=== PATIENT | female | born 1950 | race Caucasian/White ===

== ENCOUNTER 2018-06-06 07:49 | Inpatient (IN) | payer MEDICARE ==
--- NOTE | 2018-06-06 08:13 | Cat Scan Report ---
CT HEAD WITHOUT CONTRAST: HISTORY: Neurological deficits. TECHNIQUE: Sequential CT images without contrast. FINDINGS: There is moderate hypoattenuation throughout the white matter bilaterally consistent with nonspecific chronic microvascular disease. Chronic lacunar infarcts are identified in the thalami bilaterally and alvino bilaterally. An approximate 2.8 x 3.2 cm area of diminished attenuation is identified in the right cerebellar hemisphere on image 15. This also appears chronic. There is no evidence for hemorrhage, mass or large area of acute ischemia on noncontrast CT. Ventricular size is within normal limits. The basal cisterns are clear. The calvarium is intact. The paranasal sinuses and mastoid air cells are adequately aerated. IMPRESSION: Chronic findings as outlined above. No acute intracranial process is identified. These findings were discussed with Dr. Chase in the emergency department at 0804 hrs.
[2018-06-06 08:17] LABS: Basophils # (Auto) 0.1 K/mm3 (0.0-0.1); Basophils % (Auto) 0.7 % (0.0-1.8); Eosinophils # (Auto) 0.3 K/mm3 (0.0-0.4); Eosinophils % (Auto) 2.6 % (0.0-4.3); Hematocrit 40.7 % (30.3-42.9); Hemoglobin 13.3 gm/dl (10.1-14.3); Lymphocytes # (Auto) 3.4 K/mm3 (1.2-5.4); Lymphocytes % (Auto) 33.8 % (13.4-35.0); Mean Corpuscular HGB Conc 33 % (30-34); Mean Corpuscular Volume 83 fl (79-97); Monocytes # (Auto) 0.6 K/mm3 (0.0-0.8); Monocytes % (Auto) 5.7 % (0.0-7.3); Platelet Count 252 K/mm3 (140-440); Red Blood Count 4.88 M/mm3 (3.65-5.03); Red Cell Distribution Width 15.3 % (13.2-15.2)
[2018-06-06] MEDS ORDERED: BABY ASPIRIN PO ONE (08:25)
--- NOTE | 2018-06-06 08:25 | Emergency Department Report ---
ED General Adult HPI - General Stated complaint: POSS CVA Time Seen by Provider: 06/06/18 07:55 Source: patient - History of Present Illness Initial comments: Patient presents to the emergency department via EMS for chief complaint of slurred speech and right-sided weakness that started last night at 10 PM. Patient has a previous history of a stroke that left her with left-sided deficits. Patient states that yesterday morning she was able to speak normally and have full function of her right side. Patient denies chest pain, shortness of breath, or headache. -: Sudden Severity scale (0 -10): 0 Consistency: constant Improves with: none Worsens with: none Associated Symptoms: denies other symptoms Treatments Prior to Arrival: none - Related Data Home Medications Medication Instructions Recorded Confirmed Last Taken ALPRAZolam [Xanax TAB] 1 mg PO QDAY 03/18/16 04/28/16 Unknown Aspirin [Adult Low Dose Aspirin EC] 81 mg PO QDAY 03/18/16 04/28/16 Unknown AtorvaSTATin [Lipitor] 40 mg PO QDAY 03/18/16 04/28/16 Unknown Telmisartan/Amlodipine 1 each PO QDAY 03/18/16 04/28/16 Unknown [Telmisartan-Amlodipine 40-10] Trazodone HCl 50 mg PO QDAY 03/18/16 04/28/16 Unknown Trazodone HCl 100 mg PO QHS 03/18/16 04/28/16 Unknown risperiDONE [RisperiDONE] 1 mg PO QDAY 03/18/16 04/28/16 Unknown Allergies Allergy/AdvReac Type Severity Reaction Status Date / Time Penicillins Allergy Hives Verified 06/06/18 09:04 ED Review of Systems ROS: Stated complaint: POSS CVA Other details as noted in HPI Comment: All other systems reviewed and negative Constitutional: denies: chills, fever Eyes: denies: eye pain, eye discharge, vision change ENT: denies: ear pain, throat pain Respiratory: denies: cough, shortness of breath, wheezing Cardiovascular: denies: chest pain, palpitations Endocrine: no symptoms reported Gastrointestinal: denies: abdominal pain, nausea, diarrhea Genitourinary: denies: urgency, dysuria, discharge Musculoskeletal: denies: back pain, joint swelling, arthralgia Skin: denies: rash, lesions Neurological: other (slurred speech). denies: headache, weakness, paresthesias Psychiatric: denies: anxiety, depression Hematological/Lymphatic: denies: easy bleeding, easy bruising ED Past Medical Hx - Past Medical History Hx Hypertension: Yes (FOR 40+ YRS) Hx Renal Disease: Yes (STAGE 1) Hx HIV: No - Social History Smoking Status: Current Every Day Smoker - Medications Home Medications: Home Medications Medication Instructions Recorded Confirmed Last Taken Type ALPRAZolam [Xanax TAB] 1 mg PO QDAY 03/18/16 04/28/16 Unknown History Aspirin [Adult Low Dose Aspirin EC] 81 mg PO QDAY 03/18/16 04/28/16 Unknown History AtorvaSTATin [Lipitor] 40 mg PO QDAY 03/18/16 04/28/16 Unknown History Telmisartan/Amlodipine 1 each PO QDAY 03/18/16 04/28/16 Unknown History [Telmisartan-Amlodipine 40-10] Trazodone HCl 50 mg PO QDAY 03/18/16 04/28/16 Unknown History Trazodone HCl 100 mg PO QHS 03/18/16 04/28/16 Unknown History risperiDONE [RisperiDONE] 1 mg PO QDAY 03/18/16 04/28/16 Unknown History ED Physical Exam - General General appearance: alert, in no apparent distress - Head Head exam: Present: atraumatic, normocephalic - Eye Eye exam: Present: normal appearance, PERRL, EOMI - ENT ENT exam: Present: mucous membranes moist - Neck Neck exam: Present: normal inspection - Respiratory Respiratory exam: Present: normal lung sounds bilaterally. Absent: respiratory distress, wheezes, rales, rhonchi - Cardiovascular Cardiovascular Exam: Present: regular rate, normal rhythm. Absent: systolic murmur, diastolic murmur, rubs, gallop - GI/Abdominal GI/Abdominal exam: Present: soft, normal bowel sounds. Absent: distended, tenderness - Extremities Exam Extremities exam: Present: normal inspection - Back Exam Back exam: Present: normal inspection - Neurological Exam Neurological exam: Present: alert, oriented X3, CN II-XII intact, other (slurred speech, RUE 4/5 strength, prior left-sided deficit). Absent: motor sensory deficit - Psychiatric Psychiatric exam: Present: normal affect, normal mood - Skin Skin exam: Present: warm, dry, intact, normal color. Absent: rash ED Course Vital Signs 06/06/18 06/06/18 06/06/18 08:30 08:55 09:00 Temperature 98.3 F Pulse Rate 70 82 70 Respiratory 16 16 16 Rate Blood Pressure 210/111 210/111 217/92 O2 Sat by Pulse 99 100 100 Oximetry 06/06/18 09:30 Temperature Pulse Rate 70 Respiratory 15 Rate Blood Pressure 175/90 O2 Sat by Pulse 99 Oximetry ED Medical Decision Making - Lab Data Result diagrams: 06/06/18 08:04 06/06/18 08:04 Lab Results 06/06/18 06/06/18 06/06/18 Range/Units 07:56 08:04 08:04 WBC 10.2 (4.5-11.0) K/mm3 RBC 4.88 (3.65-5.03) M/mm3 Hgb 13.3 (10.1-14.3) gm/dl Hct 40.7 (30.3-42.9) % MCV 83 (79-97) fl MCH 27 L (28-32) pg MCHC 33 (30-34) % RDW 15.3 H (13.2-15.2) % Plt Count 252 (140-440) K/mm3 Lymph % (Auto) 33.8 (13.4-35.0) % [place]idan % (Auto) 5.7 (0.0-7.3) % Eos % (Auto) 2.6 (0.0-4.3) % Baso % (Auto) 0.7 (0.0-1.8) % Lymph # 3.4 (1.2-5.4) K/mm3 Sheridan # 0.6 (0.0-0.8) K/mm3 Eos # 0.3 (0.0-0.4) K/mm3 Baso # 0.1 (0.0-0.1) K/mm3 Seg Neutrophils % 57.2 (40.0-70.0) % Seg Neutrophils # 5.8 (1.8-7.7) K/mm3 PT 14.6 (12.2-14.9) Sec. INR 1.10 (0.87-1.13) APTT 27.5 (24.2-36.6) Sec. Thrombin Time 16.0 (15.1-19.6) Sec. Sodium (137-145) mmol/L Potassium (3.6-5.0) mmol/L Chloride (98-107) mmol/L Carbon Dioxide (22-30) mmol/L Anion Gap mmol/L BUN (7-17) mg/dL Creatinine (0.7-1.2) mg/dL Estimated GFR ml/min BUN/Creatinine Ratio % Glucose (65-100) mg/dL POC Glucose 71 (70-105) Calcium (8.4-10.2) mg/dL Troponin T (0.00-0.029) ng/mL 06/06/18 Range/Units 08:04 WBC (4.5-11.0) K/mm3 RBC (3.65-5.03) M/mm3 Hgb (10.1-14.3) gm/dl Hct (30.3-42.9) % MCV (79-97) fl MCH (28-32) pg MCHC (30-34) % RDW (13.2-15.2) % Plt Count (140-440) K/mm3 Lymph % (Auto) (13.4-35.0) % [place] % (Auto) (0.0-7.3) % Eos % (Auto) (0.0-4.3) % Baso % (Auto) (0.0-1.8) % Lymph # (1.2-5.4) K/mm3 [place] # (0.0-0.8) K/mm3 Eos # (0.0-0.4) K/mm3 Baso # (0.0-0.1) K/mm3 Seg Neutrophils % (40.0-70.0) % Seg Neutrophils # (1.8-7.7) K/mm3 PT (12.2-14.9) Sec. INR (0.87-1.13) APTT (24.2-36.6) Sec. Thrombin Time (15.1-19.6) Sec. Sodium 139 (137-145) mmol/L Potassium 4.2 (3.6-5.0) mmol/L Chloride 102.4 (98-107) mmol/L Carbon Dioxide 23 (22-30) mmol/L Anion Gap 18 mmol/L BUN 21 H (7-17) mg/dL Creatinine 1.1 (0.7-1.2) mg/dL Estimated GFR 49 ml/min BUN/Creatinine Ratio 19 % Glucose 83 (65-100) mg/dL POC Glucose (70-105) Calcium 9.3 (8.4-10.2) mg/dL Troponin T < 0.010 (0.00-0.029) ng/mL - EKG Data -: EKG Interpreted by Me EKG shows normal: sinus rhythm Rate: normal - Medical Decision Making Discussed results with patient Critical care attestation.: If time is entered above; I have spent that time in minutes in the direct care of this critically ill patient, excluding procedure time. ED Disposition Clinical Impression: Slurred speech Disposition: DC-01 TO HOME OR SELFCARE Is pt being admited?: Yes Does the pt Need Aspirin: No Condition: Fair Referrals: PRIMARY CARE, [Primary Care Provider] - 3-5 Days - Assessment Assessment Interval: Baseline - Level of Consciousness 1a. Level of Consciousness: alert/keenly responsive - LOC Questions 1b. LOC Questions: answers both correctly - LOC Command 1c. LOC Commands: performs tasks correctly - Best Gaze 2. Best Gaze: normal - Visual 3. Visual: no visual loss - Facial Palsy 4. Facial Palsy: normal symmetrical movement - Motor Arm 5b. Motor Arm Right: no drift 5a. Motor Arm Left: no drift - Motor Leg 6b. Motor Leg Right: no drift 6a. Motor Leg Left: no drift - Limb Ataxia 7. Limb Ataxia: absent - Sensory 8. Sensory: normal - Best Language 9. Best Language: mild/moderate aphasia - Dysarthria 10. Dysarthria: mild/moderate dysarthria - Extinction and Inattention 11. Extinction/Inattention: no abnormality - Scoring Total Score: 2 Stroke Severity: Minor Stroke
[2018-06-06 08:28] LABS: INR 1.1 (0.87-1.13)
[2018-06-06 08:29] LABS: Partial Thromboplastin Time 27.5 Sec. (24.2-36.6)
[2018-06-06 08:30] LABS: BUN/Creatinine Ratio 19; Blood Urea Nitrogen 21 mg/dL (7-17); Calcium 9.3 mg/dL (8.4-10.2); Hemolysis Index 7
[2018-06-06] MEDS ORDERED: SODIUM CHLORIDE FLUSH SYRINGE 10 ML IV PRN (09:41)
[2018-06-06] MEDS ORDERED: MILK OF MAGNESIA PO PRN (09:41)
[2018-06-06] MEDS ORDERED: DULCOLAX PR PRN (09:41)
[2018-06-06] MEDS ORDERED: REGLAN PO PRN (09:41)
[2018-06-06] MEDS ORDERED: ZOFRAN IV PRN (09:41)
[2018-06-06] MEDS ORDERED: PHENERGAN PR PRN (09:41)
--- NOTE | 2018-06-06 09:41 | History and Physical Report ---
History of Present Illness Chief complaint: I cant walk, and I cant talk History of present illness: 68 YO Female with HTN, Nicotine Dependence, CKD, CVA with LHP presents to ED for evaluation. Pt states that she experienced acute onset of slurred speech and R arm and Leg weakness around 2200hrs. Pt states that she went to bed, and awoke this morning with persistent symptoms. Pt is unable to ambulate as well as unab le to hold objects in her right hand. Pt also states that she has slurred speech. EMS notified, and upon arrival the patient was found to have neurologic deficit. A code stroke was called, and the patient was transported to [facility] for further care and evaluation. Pt seen and evaluated in ED and found to have CVA with Dysarthria, RHP. PT admitted to telemetry and initiated on CVA protocol. Pt outside therapeutic window for TPA at time of my evaluation. Pt denies fever, chills, CP, Palpitations, NVD, Trauma, BRBPR, unintentional weight loss, night sweats. Past History Past Medical History: hypertension, stroke Past Surgical History: No surgical history (reviewed) Social history: single, smoking. denies: alcohol abuse, prescription drug abuse Family history: hypertension Medications and Allergies Allergies Allergy/AdvReac Type Severity Reaction Status Date / Time Penicillins Allergy Hives Verified 06/06/18 09:04 Home Medications Medication Instructions Recorded Confirmed Last Taken Type No Known Home Medications [No 06/06/18 06/06/18 Unknown History Reported Home Medications] Review of Systems Constitutional: no weight loss, no weight gain, no fever, no chills Ears, nose, mouth and throat: no ear pain, no ear discharge, no tinnitis, no decreased hearing, no nose pain, no nasal congestion, no nasal discharge Breasts: no change in shape, no swelling, no mass Cardiovascular: no chest pain, no orthopnea, no palpitations, no rapid/irregular heart beat, no edema, no syncope Respiratory: no cough, no cough with sputum, no excessive sputum, no hemoptysis Gastrointestinal: no abdominal pain, no nausea, no vomiting, no diarrhea Genitourinary Female: no pelvic pain, no flank pain, no menorrhagia, no dysuria, no urinary frequency, no urgency Rectal: no pain, no incontinence, no bleeding Musculoskeletal: no neck stiffness, no neck pain, no shooting arm pain, no arm numbness/tingling, no low back pain, no shooting leg pain Integumentary: no rash, no pruritis, no redness, no sores, no wounds Neurological: weakness Psychiatric: no memory loss, no change in sleep habits, no sleep disturbances, no insomnia, no hypersomnia, no change in appetite Endocrine: no cold intolerance, no heat intolerance, no polyphagia, no excessive thirst, no polydipsia, no nocturia Hematologic/Lymphatic: no easy bruising, no easy bleeding, no lymphadenopathy, no lymphedema Allergic/Immunologic: no urticaria, no allergic rhinitis, no wheezing Exam - Constitutional Vitals: Temp Pulse Resp BP Pulse Ox 98.3 F 82 16 210/111 100 06/06/18 08:55 06/06/18 08:55 06/06/18 08:55 06/06/18 08:55 06/06/18 08:55 General appearance: Present: mild distress - Respiratory Respiratory effort: normal Respiratory: bilateral: CTA - Cardiovascular Heart Sounds: Present: S1 & S2. Absent: rub, click - Extremities Extremities: pulses symmetrical, No edema Peripheral Pulses: within normal limits - Abdominal General gastrointestinal: Present: soft, non-tender, non-distended, normal bowel sounds Female genitourinary: Present: normal - Integumentary Integumentary: Present: clear, warm, dry - Musculoskeletal Musculoskeletal: right sided weakness, left sided weakness - Psychiatric Psychiatric: appropriate mood/affect, intact judgment & insight - Neurologic Neurologic: CNII-XII intact, focal deficits, moves all extremities, no gait normal Results - Labs CBC & Chem 7: 06/06/18 08:04 06/06/18 08:04 Labs: Abnormal lab results 06/06/18 06/06/18 Range/Units 08:04 08:04 MCH 27 L (28-32) pg RDW 15.3 H (13.2-15.2) % BUN 21 H (7-17) mg/dL Assessment and Plan - Patient Problems (1) CVA (cerebral vascular accident) Current Visit: Yes Status: Acute Qualifiers: Precerebral and cerebral artery: middle cerebral artery Laterality of aff ected vessel: left Plan to address problem: Admit to telemetry, CT Head, MRI Brain, MRA Brain, Echo, Carotid doppler, Echo, EEG, antiplatelet therapy, lipid panel, statin therapy, PT/OT/Speech therapy (2) Nicotine dependence unspecified, with withdrawal Current Visit: Yes Status: Acute Qualifiers: Nicotine product type: cigarettes Qualified Code(s): F17.213 - Nicotine dependence, cigarettes, with withdrawal Plan to address problem: Smoking cessation counseling, supportive care. (3) Hemiparesis Current Visit: Yes Status: Acute Qualifiers: Hemiparesis etiology: late effect of cerebrovascular disease Plan to address problem: Bilateral hemiparesis: PT/OT consulted, supportive care, (4) Dysarthria due to acute cerebrovascular accident (CVA) Current Visit: Yes Status: Acute Plan to address problem: Speech therapy consulted, pending swallow evaluation (5) Hypertensive urgency, malignant Current Visit: Yes Status: Acute Plan to address problem: permissive hypertension overnight, IV hydralazine prn. (6) DVT prophylaxis Current Visit: Yes Status: Acute Plan to address problem: SCD to BLE while in bed.
[2018-06-06] MEDS ORDERED: APRESOLINE IV PRN (09:52)
[2018-06-06] MEDS ORDERED: TYLENOL PO PRN (11:00)
--- NOTE | 2018-06-06 11:08 | XRay Report ---
AP CHEST: HISTORY: Slurred speech, pain AP view of the chest demonstrates a normal mediastinal and cardiac contour with clear lungs and normal bony and soft tissue structures. IMPRESSION: Unremarkable AP chest.
--- NOTE | 2018-06-06 11:28 | Magnetic Resonance Report ---
MRI OF THE BRAIN WITHOUT CONTRAST: HISTORY: Stroke PROCEDURE: Multiplanar, multisequence MR imaging of the brain without IV contrast was performed. FINDINGS: CT head performed earlier today at 0755 hours was reviewed. MRI demonstrates an approximate 5 mm focus of diffusion restriction in the left alvino on diffusion image 12 consistent with acute to subacute ischemia. This area demonstrates decreased signal on ADC map. There is a second 5 mm focus of diffusion restriction in the white matter of the left frontal lobe on diffusion image 19. This area does not demonstrate decreased signal on the ADC map and may represent T2 shine through artifact. Advanced nonspecific chronic white matter changes are again identified. Multiple chronic lacunar infarcts in the bilateral thalami are noted. Chronic lacunar infarcts in the bilateral alvino and larger chronic infarct in the right cerebellar hemisphere are also again noted. There is no evidence for hemorrhage, mass, extra-axial fluid collection or mass effect. The midline structures are central. The basal cisterns are patent. Normal ventricular size. The orbital cavities and sella turcica demonstrate no abnormality. The visualized paranasal sinuses and mastoid air cells are well aerated. IMPRESSION: 5 mm focus of subacute ischemia in the left alvino as described. Questionable 5 mm focus of diffusion restriction in the left frontal white matter. Please correlate with the patient's clinical presentation. Chronic infarcts as described. Nonspecific chronic white matter changes.
--- NOTE | 2018-06-06 11:28 | Magnetic Resonance Report ---
MRA HEAD WITHOUT CONTRAST HISTORY: Stroke. [id number] imaging with MIP reformations of the bois forte of Fan is submitted. The arteries appear widely patent and free of hemodynamically significant stenosis, aneurysm or dissection. IMPRESSION: Unremarkable MRA head.
[2018-06-06] MEDS ORDERED: XANAX ONE (12:37)
[2018-06-06] MEDS ORDERED: RisperDAL ONE (12:37)
[2018-06-06] MEDS ORDERED: ASPIRIN ONE (12:37)
[2018-06-06] MEDS: ASPIRIN PO SCH (13:03)
[2018-06-06] MEDS: RisperDAL PO SCH (13:03)
[2018-06-06] MEDS: XANAX PO SCH (13:03)
--- NOTE | 2018-06-06 13:12 | Vascular Lab Report ---
FINAL REPORT EXAM: VL CAROTID DUPLEX BILAT HISTORY: stroke COMPARISON: None. TECHNIQUE: Duplex Doppler ultrasound of the carotid arteries was performed. FINDINGS: There is a small amount of intimal thickening and plaque in the right carotid bulb, causing less than 50 percent stenosis. The right internal and external carotid arteries are patent. There is antegrade flow in the right vertebral artery. There is a small amount of atherosclerotic plaque in the distal left common carotid artery and proxim al left internal carotid artery, causing less than 50 percent stenosis. There is antegrade flow in th e left vertebral artery. Peak systolic velocities (cm/sec) are as follows: Right common carotid artery: 83.9 Right internal carotid artery: 94.4 Right external carotid artery: 51.6 Left common carotid artery: 72.8 Left internal carotid artery: 83.6 Left external carotid artery: 90 Peak systolic velocity ratio between the right internal carotid artery and the right common carotid a rtery: 1.13 Peak systolic velocity ratio between the left internal carotid artery and left common carotid artery: 1.15 IMPRESSION: Atherosclerotic plaque in the right carotid bulb causing less than 50 percent stenosis. Patent right internal carotid artery. Atherosclerotic plaque in the distal left common carotid artery and proximal left internal carotid ar ramon, causing less than 50 percent stenosis.
[2018-06-06] MEDS: DESYREL PO SCH (21:55)
[2018-06-07 07:50] LABS: Chol/HDL Ratio 2.48 %
[2018-06-07] MEDS: PLAVIX PO SCH (10:43)
[2018-06-07] MEDS: RisperDAL PO SCH (10:44)
[2018-06-07] MEDS: ASPIRIN PO SCH (10:44)
[2018-06-07] MEDS: XANAX PO SCH (10:44)
--- NOTE | 2018-06-07 12:29 | Progress Note ---
Assessment and Plan Assessment and plan: 68 YO Female with HTN, Nicotine Dependence, CKD, CVA with LHP presents cw slu rred speech and r side weakness Past History Past Medical History: hypertension, stroke MRI brain shows subacute infarct in the left alvino, questionable infarct in left frontal white matter Carotid Dopplers did not show any significant stenosis Dx Acute CVA htn nicotine abuse with dependence ckd Plan fup MR brain, neuro consult allow permissive htn optimize meds for secondary prevention fup echo, LDL [address], PT and OT recs dvt ppx scds History Interval history: Slurred speech is improved, still complaining of right-sided weakness Review of systems Constitutional: No fevers, no malaise, no joint pains CVS: No chest pain, no orthopnea, no dyspnea on exertion, no pedal edema GI: No abdominal pain, no diarrhea, no vomiting, no constipation Respiratory: No shortness of breath, no wheezing, no coughing Hospitalist Physical - Physical exam Narrative exam: General.: Appears well, no distress, nontoxic HEENT: Moist mucous membranes, extraocular muscles intact, no lymphadenopathy Neck: supple Cardiac: S1-S2 heard Lungs: clear to auscultation bilaterally Abdomen: soft , nontender, nondistended, bowel sounds positive Extremities: no edema clubbing or cyanosis Skin: no rash or lesions Neurologic: Right hemiparesis noted, also has some left-sided deficits which are old per patient Psych: calm, and cooperative - Constitutional Vitals: Temp Pulse Resp BP Pulse Ox 98.4 F 76 16 148/70 98 06/07/18 11:45 06/07/18 11:45 06/07/18 11:45 06/07/18 11:45 06/07/18 11:45 General appearance: Present: mild distress Results - Labs CBC & Chem 7: 06/06/18 08:04 06/06/18 08:04 Labs: Laboratory Last Values WBC 10.2 K/mm3 (4.5-11.0) 06/06/18 08:04 RBC 4.88 M/mm3 (3.65-5.03) 06/06/18 08:04 Hgb 13.3 gm/dl (10.1-14.3) 06/06/18 08:04 Hct 40.7 % (30.3-42.9) 06/06/18 08:04 MCV 83 fl (79-97) 06/06/18 08:04 MCH 27 pg (28-32) L 06/06/18 08:04 MCHC 33 % (30-34) 06/06/18 08:04 RDW 15.3 % (13.2-15.2) H 06/06/18 08:04 Plt Count 252 K/mm3 (140-440) 06/06/18 08:04 Lymph % (Auto) 33.8 % (13.4-35.0) 06/06/18 08:04 Crowley % (Auto) 5.7 % (0.0-7.3) 06/06/18 08:04 Eos % (Auto) 2.6 % (0.0-4.3) 06/06/18 08:04 Baso % (Auto) 0.7 % (0.0-1.8) 06/06/18 08:04 Lymph # 3.4 K/mm3 (1.2-5.4) 06/06/18 08:04 Crowley # 0.6 K/mm3 (0.0-0.8) 06/06/18 08:04 Eos # 0.3 K/mm3 (0.0-0.4) 06/06/18 08:04 Baso # 0.1 K/mm3 (0.0-0.1) 06/06/18 08:04 Seg Neutrophils % 57.2 % (40.0-70.0) 06/06/18 08:04 Seg Neutrophils # 5.8 K/mm3 (1.8-7.7) 06/06/18 08:04 PT 14.6 Sec. (12.2-14.9) 06/06/18 08:04 INR 1.10 (0.87-1.13) 06/06/18 08:04 APTT 27.5 Sec. (24.2-36.6) 06/06/18 08:04 Thrombin Time 16.0 Sec. (15.1-19.6) 06/06/18 08:04 Sodium 139 mmol/L (137-145) 06/06/18 08:04 Potassium 4.2 mmol/L (3.6-5.0) 06/06/18 08:04 Chloride 102.4 mmol/L (98-107) 06/06/18 08:04 Carbon Dioxide 23 mmol/L (22-30) 06/06/18 08:04 Anion Gap 18 mmol/L 06/06/18 08:04 BUN 21 mg/dL (7-17) H 06/06/18 08:04 Creatinine 1.1 mg/dL (0.7-1.2) 06/06/18 08:04 Estimated GFR 49 ml/min 06/06/18 08:04 BUN/Creatinine Ratio 19 % 06/06/18 08:04 Glucose 83 mg/dL (65-100) 06/06/18 08:04 POC Glucose 71 (70-105) 06/06/18 07:56 Calcium 9.3 mg/dL (8.4-10.2) 06/06/18 08:04 Troponin T < 0.010 ng/mL (0.00-0.029) 06/06/18 08:04 Triglycerides 78 mg/dL (2-149) 06/07/18 05:50 Cholesterol 219 mg/dL (50-199) H 06/07/18 05:50 LDL Cholesterol Direct 136 mg/dL (50-130) H 06/07/18 05:50 HDL Cholesterol 88 mg/dL (40-59) H 06/07/18 05:50 Cholesterol/HDL Ratio 2.48 % 06/07/18 05:50
[2018-06-07] MEDS ORDERED: NORMODYNE IV PRN (12:30)
[2018-06-07] MEDS: HABITROL TD SCH (14:36)
[2018-06-07] MEDS: DESYREL PO SCH (22:52)
[2018-06-08] MEDS: PLAVIX PO SCH (09:10)
[2018-06-08] MEDS: HABITROL TD SCH (09:10)
[2018-06-08] MEDS: ASPIRIN PO SCH (09:10)
[2018-06-08] MEDS: XANAX PO SCH (09:12)
[2018-06-08] MEDS: RisperDAL PO SCH (09:12)
--- NOTE | 2018-06-08 14:28 | Progress Note ---
Assessment and Plan Assessment and plan: 68 YO Female with HTN, Nicotine Dependence, CKD, CVA with LHP presents cw slu rred speech and r side weakness Past History Past Medical History: hypertension, stroke MRI brain shows subacute infarct in the left alvino, questionable infarct in left frontal white matter Carotid Dopplers did not show any significant stenosis Dx Acute CVA htn nicotine abuse with dependence ckd Plan fup MR brain, neuro consult allow permissive htn optimize meds for secondary prevention fup echo, LDL [address], PT and OT recs, planned for IRU placement dvt ppx scds History Interval history: Slurred speech is improved, still complaining of right-sided weakness Review of systems Constitutional: No fevers, no malaise, no joint pains CVS: No chest pain, no orthopnea, no dyspnea on exertion, no pedal edema GI: No abdominal pain, no diarrhea, no vomiting, no constipation Respiratory: No shortness of breath, no wheezing, no coughing Hospitalist Physical - Physical exam Narrative exam: General.: Appears well, no distress, nontoxic HEENT: Moist mucous membranes, extraocular muscles intact, no lymphadenopathy Neck: supple Cardiac: S1-S2 heard Lungs: clear to auscultation bilaterally Abdomen: soft , nontender, nondistended, bowel sounds positive Extremities: no edema clubbing or cyanosis Skin: no rash or lesions Neurologic: Right hemiparesis noted, also has some left-sided deficits which are old per patient Psych: calm, and cooperative - Constitutional Vitals: Temp Pulse Resp BP Pulse Ox 98.0 F 65 16 180/93 98 06/08/18 07:54 06/08/18 07:54 06/08/18 07:54 06/08/18 07:54 06/08/18 07:54 General appearance: Present: mild distress Results - Labs CBC & Chem 7: 06/06/18 08:04 06/06/18 08:04 Labs: Laboratory Last Values WBC 10.2 K/mm3 (4.5-11.0) 06/06/18 08:04 RBC 4.88 M/mm3 (3.65-5.03) 06/06/18 08:04 Hgb 13.3 gm/dl (10.1-14.3) 06/06/18 08:04 Hct 40.7 % (30.3-42.9) 06/06/18 08:04 MCV 83 fl (79-97) 06/06/18 08:04 MCH 27 pg (28-32) L 06/06/18 08:04 MCHC 33 % (30-34) 06/06/18 08:04 RDW 15.3 % (13.2-15.2) H 06/06/18 08:04 Plt Count 252 K/mm3 (140-440) 06/06/18 08:04 Lymph % (Auto) 33.8 % (13.4-35.0) 06/06/18 08:04 [place] % (Auto) 5.7 % (0.0-7.3) 06/06/18 08:04 Eos % (Auto) 2.6 % (0.0-4.3) 06/06/18 08:04 Baso % (Auto) 0.7 % (0.0-1.8) 06/06/18 08:04 Lymph # 3.4 K/mm3 (1.2-5.4) 06/06/18 08:04 [place] # 0.6 K/mm3 (0.0-0.8) 06/06/18 08:04 Eos # 0.3 K/mm3 (0.0-0.4) 06/06/18 08:04 Baso # 0.1 K/mm3 (0.0-0.1) 06/06/18 08:04 Seg Neutrophils % 57.2 % (40.0-70.0) 06/06/18 08:04 Seg Neutrophils # 5.8 K/mm3 (1.8-7.7) 06/06/18 08:04 PT 14.6 Sec. (12.2-14.9) 06/06/18 08:04 INR 1.10 (0.87-1.13) 06/06/18 08:04 APTT 27.5 Sec. (24.2-36.6) 06/06/18 08:04 Thrombin Time 16.0 Sec. (15.1-19.6) 06/06/18 08:04 Sodium 139 mmol/L (137-145) 06/06/18 08:04 Potassium 4.2 mmol/L (3.6-5.0) 06/06/18 08:04 Chloride 102.4 mmol/L (98-107) 06/06/18 08:04 Carbon Dioxide 23 mmol/L (22-30) 06/06/18 08:04 Anion Gap 18 mmol/L 06/06/18 08:04 BUN 21 mg/dL (7-17) H 06/06/18 08:04 Creatinine 1.1 mg/dL (0.7-1.2) 06/06/18 08:04 Estimated GFR 49 ml/min 06/06/18 08:04 BUN/Creatinine Ratio 19 % 06/06/18 08:04 Glucose 83 mg/dL (65-100) 06/06/18 08:04 POC Glucose 79 (70-105) 06/08/18 12:11 Calcium 9.3 mg/dL (8.4-10.2) 06/06/18 08:04 Troponin T < 0.010 ng/mL (0.00-0.029) 06/06/18 08:04 Triglycerides 78 mg/dL (2-149) 06/07/18 05:50 Cholesterol 219 mg/dL (50-199) H 06/07/18 05:50 LDL Cholesterol Direct 136 mg/dL (50-130) H 06/07/18 05:50 HDL Cholesterol 88 mg/dL (40-59) H 06/07/18 05:50 Cholesterol/HDL Ratio 2.48 % 06/07/18 05:50 Nutrition/Malnutrition Assess - Dietary Evaluation Nutrition/Malnutrition Findings: Nutrition Notes Start: 06/07/18 14:55 Freq: Status: Active Protocol: Document 06/07/18 14:55 RM (Rec: 06/07/18 14:55 RM [id number]) Nutrition Notes 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 Javier 19 points. Nutrition Intervention Revisit per MD consult or patient Sign Off request:
--- NOTE | 2018-06-08 14:36 | Consultation ---
History of Present Illness Consult date: 06/08/18 Requesting physician: DELMA ROA Reason for Consult: acute stroke History of present illness: 89 yr old female with HTN, Nicotine Dependence, CKD, CVA with LHP, presented with acute onset of right sided weakness. The pt. was sitting in her chair on 06/06/18 when she noted heaviness in her right arm and leg. She went to lay down thinking it would get better. But after she awakened from a nap it seemed worse. She then told her daughter with whom she lives, and she was brought to ER. She was not determined to be a candidate for TPA. The pt. tells me that she has moved from [place] to [place] 3 yrs. ago. She has had multiple TIAs over the years and used to take aspirin as well as a cholesterol lowering agent. She had stopped taking these. MRI scan reveals a lt. pontine stroke and left frontal lesion, both subacute. Echocardiogram reveals nl function. Daughter also notes her mother's speech is very slurred. After her last CVA, she regained all strength and coordination. Currently the pt. denies headache, nausea, vomiting, chest pain, palpitations. Past History Past Medical History: hypertension, stroke Past Surgical History: No surgical history (reviewed) Social history: single, lives with family, smoking. denies: alcohol abuse, prescription drug abuse Family history: hypertension Medications and Allergies Allergies Allergy/AdvReac Type Severity Reaction Status Date / Time Penicillins Allergy Hives Verified 06/06/18 09:04 Home Medications Medication Instructions Recorded Confirmed Last Taken Type No Known Home Medications [No 06/06/18 06/06/18 Unknown History Reported Home Medications] Active Meds: Active Medications Acetaminophen (Tylenol) 650 mg PO Q4H PRN PRN Reason: Pain, Mild (1-3) Alprazolam (Xanax) 1 mg PO QDAY [facility] Last Admin: 06/08/18 09:12 Dose: Not Given Documented by: Aspirin (Aspirin) 325 mg PO QDAY [facility] Last Admin: 06/08/18 09:10 Dose: 325 mg Documented by: Atorvastatin Calcium (Lipitor) 40 mg PO QHS [facility] Last Admin: 06/07/18 22:52 Dose: 40 mg Documented by: Bisacodyl (Dulcolax) [address] QDAY PRN PRN Reason: Constipation Clopidogrel Bisulfate (Plavix) 75 mg PO QDAY [facility] Last Admin: 06/08/18 09:10 Dose: 75 mg Documented by: Hydralazine HCl (Apresoline) 20 mg IV Q6HR PRN PRN Reason: Hypertension Labetalol HCl (Normodyne) 10 mg IV Q4H PRN PRN Reason: BP >160/100; hold for HR <60 Magnesium Hydroxide (Milk Of Magnesia) 30 ml PO Q4H PRN PRN Reason: Constipation Metoclopramide HCl (Reglan) 10 mg PO Q6H PRN PRN Reason: Nausea And Vomiting Nicotine (Habitrol) 14 mg TD QDAY [facility] Last Admin: 06/08/18 09:10 Dose: 14 mg Documented by: Ondansetron HCl (Zofran) 4 mg IV Q8H PRN PRN Reason: Nausea And Vomiting Promethazine HCl (Phenergan) [address] Q6H PRN PRN Reason: Nausea And Vomiting Risperidone (Risperdal) 1 mg PO QDAY [facility] Last Admin: 06/08/18 09:12 Dose: Not Given Documented by: Sodium Chloride (Sodium Chloride Flush Syringe 10 Ml) 10 ml IV PRN PRN PRN Reason: LINE FLUSH Trazodone HCl (Desyrel) 100 mg PO QHS [facility] Last Admin: 06/07/18 22:52 Dose: 100 mg Documented by: Review of Systems All systems: negative (slurred speech, right hemiparesis.) Physical Examination - Vital Signs Vital Signs: Vital Signs Pulse Resp BP Pulse Ox 70 16 210/111 99 06/06/18 08:30 06/06/18 08:30 06/06/18 08:30 06/06/18 08:30 - Physical Exam Narrative exam: Neurological Exam - Speech very dysarthric. Language is intact. 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 weakness, V-1 thru V-3 intact misti aterally. tongue midline, hearing intact. Motor - 5/5 on left, UE and LE. Right - deltoids - 0/5, wrist extensors - 1/5, finger extensors - 2/5,. registered midwife 2/5 supinator/pronator - 3/5, interossei - 1/5 LE - iliopsoas - 2/5, quads - 4/5, foot dorsiflexors - 3/5, plantar flexors - 3/5. Reflexes - +2 on right, +1 on left Sensory - intact to touch and pin all 4 limbs. Cerebellar - FTN, BALTAZAR, fine finger movements intact on left. - Assessment Assessment Interval: Baseline - Level of Consciousness 1a. Level of Consciousness: alert/keenly responsive - LOC Questions 1b. LOC Questions: answers both correctly - LOC Command 1c. LOC Commands: performs tasks correctly - Best Gaze 2. Best Gaze: normal - Visual 3. Visual: no visual loss - Facial Palsy 4. Facial Palsy: normal symmetrical movement - Motor Arm 5b. Motor Arm Right: no drift - Motor Leg 6a. Motor Leg Left: no drift - Limb Ataxia 7. Limb Ataxia: absent - Sensory 8. Sensory: normal - Best Language 9. Best Language: mild/moderate aphasia - Dysarthria 10. Dysarthria: mild/moderate dysarthria - Extinction and Inattention 11. Extinction/Inattention: no abnormality Results - Laboratory Findings CBC and BMP: 06/06/18 08:04 06/06/18 08:04 Abnormal Lab Findings: Abnormal Labs 06/06/18 06/06/18 06/07/18 08:04 08:04 05:50 MCH 27 L RDW 15.3 H BUN 21 H POC Glucose Cholesterol 219 H LDL Cholesterol Direct 136 H HDL Cholesterol 88 H 06/07/18 06/07/18 11:49 21:07 MCH RDW BUN POC Glucose 164 H 109 H Cholesterol LDL Cholesterol Direct HDL Cholesterol Assessment and Plan 68 yr old female with hypertension, previous strokes, presented with new right sided weakness on 06/06/18 She has not been taking herf medications for months. MRI reveals several areas of subacute lesions. Plan - resume ASA and atorvastatin PT and consult to rehab. PT, OT, Speech therapy
[2018-06-08] MEDS: DESYREL PO SCH (21:31)
[2018-06-09] MEDS: HABITROL TD SCH (10:37)
[2018-06-09] MEDS: PLAVIX PO SCH (10:37)
[2018-06-09] MEDS: ASPIRIN PO SCH (10:37)
[2018-06-09] MEDS: XANAX PO SCH (10:38)
[2018-06-09] MEDS: RisperDAL PO SCH (10:38)
--- NOTE | 2018-06-09 14:54 | Progress Note ---
Assessment and Plan Assessment and plan: 68 YO Female with HTN, Nicotine Dependence, CKD, CVA with LHP presents cw slu rred speech and r side weakness Past History Past Medical History: hypertension, stroke MRI brain shows subacute infarct in the left alvino, questionable infarct in left frontal white matter Carotid Dopplers did not show any significant stenosis Dx Acute CVA htn nicotine abuse with dependence htn urgency Plan optimize bp meds optimize meds for secondary prevention fup echo, LDL [address], PT and OT recs, planned for acute rehab placement dvt ppx scds History Interval history: Slurred speech is improved, still complaining of right-sided weakness Review of systems Constitutional: No fevers, no malaise, no joint pains CVS: No chest pain, no orthopnea, no dyspnea on exertion, no pedal edema GI: No abdominal pain, no diarrhea, no vomiting, no constipation Respiratory: No shortness of breath, no wheezing, no coughing Hospitalist Physical - Physical exam Narrative exam: General.: Appears well, no distress, nontoxic HEENT: Moist mucous membranes, extraocular muscles intact, no lymphadenopathy Neck: supple Cardiac: S1-S2 heard Lungs: clear to auscultation bilaterally Abdomen: soft , nontender, nondistended, bowel sounds positive Extremities: no edema clubbing or cyanosis Skin: no rash or lesions Neurologic: Right hemiparesis noted, also has some left-sided deficits which are old per patient Psych: calm, and cooperative - Constitutional Vitals: Temp Pulse Resp BP Pulse Ox 97.7 F 73 16 148/93 98 06/09/18 08:02 06/09/18 08:02 06/09/18 08:02 06/09/18 08:02 06/09/18 08:02 General appearance: Present: mild distress Results - Labs CBC & Chem 7: 06/06/18 08:04 06/06/18 08:04 Labs: Laboratory Last Values WBC 10.2 K/mm3 (4.5-11.0) 06/06/18 08:04 RBC 4.88 M/mm3 (3.65-5.03) 06/06/18 08:04 Hgb 13.3 gm/dl (10.1-14.3) 06/06/18 08:04 Hct 40.7 % (30.3-42.9) 06/06/18 08:04 MCV 83 fl (79-97) 06/06/18 08:04 MCH 27 pg (28-32) L 06/06/18 08:04 MCHC 33 % (30-34) 06/06/18 08:04 RDW 15.3 % (13.2-15.2) H 06/06/18 08:04 Plt Count 252 K/mm3 (140-440) 06/06/18 08:04 Lymph % (Auto) 33.8 % (13.4-35.0) 06/06/18 08:04 [place] % (Auto) 5.7 % (0.0-7.3) 06/06/18 08:04 Eos % (Auto) 2.6 % (0.0-4.3) 06/06/18 08:04 Baso % (Auto) 0.7 % (0.0-1.8) 06/06/18 08:04 Lymph # 3.4 K/mm3 (1.2-5.4) 06/06/18 08:04 [place] # 0.6 K/mm3 (0.0-0.8) 06/06/18 08:04 Eos # 0.3 K/mm3 (0.0-0.4) 06/06/18 08:04 Baso # 0.1 K/mm3 (0.0-0.1) 06/06/18 08:04 Seg Neutrophils % 57.2 % (40.0-70.0) 06/06/18 08:04 Seg Neutrophils # 5.8 K/mm3 (1.8-7.7) 06/06/18 08:04 PT 14.6 Sec. (12.2-14.9) 06/06/18 08:04 INR 1.10 (0.87-1.13) 06/06/18 08:04 APTT 27.5 Sec. (24.2-36.6) 06/06/18 08:04 Thrombin Time 16.0 Sec. (15.1-19.6) 06/06/18 08:04 Sodium 139 mmol/L (137-145) 06/06/18 08:04 Potassium 4.2 mmol/L (3.6-5.0) 06/06/18 08:04 Chloride 102.4 mmol/L (98-107) 06/06/18 08:04 Carbon Dioxide 23 mmol/L (22-30) 06/06/18 08:04 Anion Gap 18 mmol/L 06/06/18 08:04 BUN 21 mg/dL (7-17) H 06/06/18 08:04 Creatinine 1.1 mg/dL (0.7-1.2) 06/06/18 08:04 Estimated GFR 49 ml/min 06/06/18 08:04 BUN/Creatinine Ratio 19 % 06/06/18 08:04 Glucose 83 mg/dL (65-100) 06/06/18 08:04 POC Glucose 112 (70-105) H 06/08/18 18:19 Calcium 9.3 mg/dL (8.4-10.2) 06/06/18 08:04 Troponin T < 0.010 ng/mL (0.00-0.029) 06/06/18 08:04 Triglycerides 78 mg/dL (2-149) 06/07/18 05:50 Cholesterol 219 mg/dL (50-199) H 06/07/18 05:50 LDL Cholesterol Direct 136 mg/dL (50-130) H 06/07/18 05:50 HDL Cholesterol 88 mg/dL (40-59) H 06/07/18 05:50 Cholesterol/HDL Ratio 2.48 % 06/07/18 05:50 Nutrition/Malnutrition Assess - Dietary Evaluation Nutrition/Malnutrition Findings: Nutrition Notes Start: 06/07/18 14:55 Freq: Status: Active Protocol: Document 06/07/18 14:55 RM (Rec: 06/07/18 14:55 RM [id number]) Nutrition Notes 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 Javier 19 points. Nutrition Intervention Revisit per MD consult or patient Sign Off request:
--- NOTE | 2018-06-09 15:49 | Query- Dyspnea ---
Jesus Small____Onuigbmichael Date:__06/09/2018 Boom/CDS:____Susi Phone#:___[phone] Exercise your independent professional judgment when responding to query. Questions asked do not imply a particular answer is desired or expected. We greatly appreciate your clarification on this issue. Clinical Documentation States: 68 YO Female experienced acute onset of slurred speech and R arm and Leg weakness around 2200hrs. Clinical Findings Show: RR: 22 O2 Sat: 70 Please clarify if the patient had any of the following conditions based on the above clinical findings: [ ] Respiratory Failure [ x] Acute [ ] Acute on Chronic [ ] Chronic [ ] Respiratory failure due to trauma [ ] Acute Respiratory Distress Syndrome [ ] Other: [ ] Unable to determine [ ] Comment/Explanation: Present on Admission: [ x] Yes (Y) [ ] Clinically undeterminable (W) [ ] No (N) Please also document response in your Progress Notes and/or Discharge Summary and indicate if the condition was present on admission. AWILDA
--- NOTE | 2018-06-09 16:36 | Progress Note ---
Assessment and Plan 68 yr old female with hypertension, previous strokes, presented with new right sided weakness on 06/06/18 She has not been taking her medications for months. MRI reveals several areas of subacute lesions. Plan - resume ASA and atorvastatin OK to discharge to Rehab. Subjective Date of service: 06/09/18 Principal diagnosis: Stroke, pontine and left frontal Interval history: 68 yr old female with HTN, Nicotine Dependence, CKD, CVA with LHP, presented with acute onset of right sided weakness. MRI scan reveals a lt. pontine stroke and left frontal lesion, both subacute. Echocardiogram reveals nl function. She feels stable. Swallowing is intact and she is tolerating meals. Objective - Exam Narrative Exam: Neurological Exam - Speech very dysarthric. Language is intact. 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 weakness, V-1 thru V-3 intact bilaterally. tongue midline, hearing intact. Motor - 5/5 on left, UE and LE. Right - deltoids - 0/5, wrist extensors - 1/5, finger extensors - 2/5,. silviculturist 2/5 supinator/pronator - 3/5, interossei - 1/5, silviculturist - 2-/5 LE - iliopsoas - 2/5, quads - 4/5, foot dorsiflexors - 3/5, plantar flexors - 3/5. Reflexes - +2 on right, +1 on left Sensory - intact to touch and pin all 4 limbs. Cerebellar - FTN, BALTAZAR, fine finger movements intact on left. - Vital Sign Vital Signs - 12hr 06/09/18 06/09/18 08:02 13:28 Temperature 97.7 F 97.2 F L Pulse Rate 73 82 Respiratory 16 16 Rate Blood Pressure 148/93 152/75 O2 Sat by Pulse 98 100 Oximetry - Laboratory Findings CBC and BMP: 06/06/18 08:04 06/06/18 08:04 Abnormal Lab Findings: Abnormal Labs 06/06/18 06/06/18 06/07/18 08:04 08:04 05:50 MCH 27 L RDW 15.3 H BUN 21 H POC Glucose Cholesterol 219 H LDL Cholesterol Direct 136 H HDL Cholesterol 88 H 06/07/18 06/07/18 06/08/18 11:49 21:07 18:19 MCH RDW BUN POC Glucose 164 H 109 H 112 H Cholesterol LDL Cholesterol Direct HDL Cholesterol 06/09/18 06/09/18 13:33 16:13 MCH RDW BUN POC Glucose 118 H 171 H Cholesterol LDL Cholesterol Direct HDL Cholesterol
[2018-06-09] MEDS: DESYREL PO SCH (21:55)
[2018-06-10] MEDS: XANAX PO SCH ×2 (10:04→10:35)
[2018-06-10] MEDS: HABITROL TD SCH (10:35)
[2018-06-10] MEDS: ASPIRIN PO SCH (10:35)
[2018-06-10] MEDS: PLAVIX PO SCH (10:35)
[2018-06-10] MEDS: RisperDAL PO SCH ×2 (10:35→10:37)
--- NOTE | 2018-06-10 11:01 | Progress Note ---
Hospitalist Physical - Constitutional Vitals: Temp Pulse Resp BP Pulse Ox 97.0 F L 72 18 144/82 97 06/10/18 05:16 06/10/18 08:13 06/10/18 05:16 06/10/18 05:16 06/10/18 08:14 General appearance: Present: mild distress Results - Labs CBC & Chem 7: 06/06/18 08:04 06/06/18 08:04 Labs: Laboratory Last Values WBC 10.2 K/mm3 (4.5-11.0) 06/06/18 08:04 RBC 4.88 M/mm3 (3.65-5.03) 06/06/18 08:04 Hgb 13.3 gm/dl (10.1-14.3) 06/06/18 08:04 Hct 40.7 % (30.3-42.9) 06/06/18 08:04 MCV 83 fl (79-97) 06/06/18 08:04 MCH 27 pg (28-32) L 06/06/18 08:04 MCHC 33 % (30-34) 06/06/18 08:04 RDW 15.3 % (13.2-15.2) H 06/06/18 08:04 Plt Count 252 K/mm3 (140-440) 06/06/18 08:04 Lymph % (Auto) 33.8 % (13.4-35.0) 06/06/18 08:04 [place] % (Auto) 5.7 % (0.0-7.3) 06/06/18 08:04 Eos % (Auto) 2.6 % (0.0-4.3) 06/06/18 08:04 Baso % (Auto) 0.7 % (0.0-1.8) 06/06/18 08:04 Lymph # 3.4 K/mm3 (1.2-5.4) 06/06/18 08:04 [place] # 0.6 K/mm3 (0.0-0.8) 06/06/18 08:04 Eos # 0.3 K/mm3 (0.0-0.4) 06/06/18 08:04 Baso # 0.1 K/mm3 (0.0-0.1) 06/06/18 08:04 Seg Neutrophils % 57.2 % (40.0-70.0) 06/06/18 08:04 Seg Neutrophils # 5.8 K/mm3 (1.8-7.7) 06/06/18 08:04 PT 14.6 Sec. (12.2-14.9) 06/06/18 08:04 INR 1.10 (0.87-1.13) 06/06/18 08:04 APTT 27.5 Sec. (24.2-36.6) 06/06/18 08:04 Thrombin Time 16.0 Sec. (15.1-19.6) 06/06/18 08:04 Sodium 139 mmol/L (137-145) 06/06/18 08:04 Potassium 4.2 mmol/L (3.6-5.0) 06/06/18 08:04 Chloride 102.4 mmol/L (98-107) 06/06/18 08:04 Carbon Dioxide 23 mmol/L (22-30) 06/06/18 08:04 Anion Gap 18 mmol/L 06/06/18 08:04 BUN 21 mg/dL (7-17) H 06/06/18 08:04 Creatinine 1.1 mg/dL (0.7-1.2) 06/06/18 08:04 Estimated GFR 49 ml/min 06/06/18 08:04 BUN/Creatinine Ratio 19 % 06/06/18 08:04 Glucose 83 mg/dL (65-100) 06/06/18 08:04 POC Glucose 77 (70-105) 06/10/18 06:43 Calcium 9.3 mg/dL (8.4-10.2) 06/06/18 08:04 Troponin T < 0.010 ng/mL (0.00-0.029) 06/06/18 08:04 Triglycerides 78 mg/dL (2-149) 06/07/18 05:50 Cholesterol 219 mg/dL (50-199) H 06/07/18 05:50 LDL Cholesterol Direct 136 mg/dL (50-130) H 06/07/18 05:50 HDL Cholesterol 88 mg/dL (40-59) H 06/07/18 05:50 Cholesterol/HDL Ratio 2.48 % 06/07/18 05:50 Nutrition/Malnutrition Assess - Dietary Evaluation Nutrition/Malnutrition Findings: Nutrition Notes Start: 06/07/18 14:55 Freq: Status: Active Protocol: Document 06/07/18 14:55 RM (Rec: 06/07/18 14:55 RM [id number]) Nutrition Notes 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 Javier 19 points. Nutrition Intervention Revisit per MD consult or patient Sign Off request:
--- NOTE | 2018-06-10 14:10 | Discharge Summary ---
Providers - Providers Date of Admission: 06/06/18 09:41 Attending physician: DELMA ROA MD 06/06/18 09:41 Occupational Therapy Evaluate and Treat [CONS] Routine Comment: Reason For Exam: Neuro deficits Physical Therapy Evaluation and Treat [CONS] Routine Comment: Reason For Exam: Neuro deficits 06/06/18 09:49 Speech Therapy Evaluation and Treat [CONS] Routine Reason For Exam: swallow eval 06/07/18 12:26 Consult to Physician [CONS] Routine Comment: Consulting Provider: SANDRO SAUCEDA Physician Instructions: Reason For Exam: cva Primary care physician: CASE CHECKER Hospitalization Condition: Fair Hospital course: 68 YO Female with HTN, Nicotine Dependence, CKD, CVA with LHP presents cw slurred speech and r side weakness Past History Past Medical History: hypertension, stroke MRI brain shows subacute infarct in the left alvino, questionable infarct in left frontal white matter Carotid Dopplers did not show any significant stenosis Hospital course -The patient was diagnosed with subacute infarct affecting the left alvino and possibly also affecting left frontal white matter. She was out of the window for TPA. Therefore she was medically managed. Her medication optimize for secondary prevention. She was seen by neurology, who recommended aspirin and Plavix and a statin and blood pressure control. She continued to have right- sided weakness worse in her right upper extremity and slurred speech, at the time of discharge, she is going to acute rehabilitation facility. Dx Acute CVA htn urgency nicotine abuse with dependence HLD Disposition: [id number] IN REHAB FACILITY Time spent for discharge: 33 minutes Core Measure Documentation - Palliative Care Palliative Care/ Comfort Measures: Not Applicable - Core Measures Any of the following diagnoses?: stroke - Stroke Discharge Requirements Statin for LDL = or >70 mg/dl on DC: Yes Anticoag for atrial fib/atrial flutter: Not Applicable Antithrombotic for ischemic stroke: Yes Exam - Physical Exam Narrative exam: General.: Appears well, no distress, nontoxic HEENT: Moist mucous membranes, extraocular muscles intact, no lymphadenopathy Neck: supple Cardiac: S1-S2 heard Lungs: clear to auscultation bilaterally Abdomen: soft , nontender, nondistended, bowel sounds positive Extremities: no edema clubbing or cyanosis Skin: no rash or lesions Neurologic: Right hemiparesis noted, slurred speech Psych: calm, and cooperative - Constitutional Vitals: Temp Pulse Resp BP Pulse Ox 98.4 F 85 18 161/77 98 06/10/18 11:38 06/10/18 11:38 06/10/18 11:38 06/10/18 11:38 06/10/18 11:38 Plan Follow up with: PRIMARY CARE, [Primary Care Provider] - 3-5 Days Prescriptions: ALPRAZolam [Xanax TAB] 1 mg PO QDAY #7 tablet Aspirin [Adult Low Dose Aspirin EC] 81 mg PO DAILY #30 tablet. Losartan/Hydrochlorothiazide [Losartan-Hctz 100-25 mg Tab] 1 each PO DAILY #30 tablet
[2018-06-10 16:25] VITALS: BP 165/80
[2018-06-10] MEDS ORDERED: COZAAR PO SCH (18:00)
== END 2018-06-10 18:32 | DRG 65 ==
LOC: ED 07:49 → 4A 09:41
PROVIDERS: ADMIT Internal Medicine; ATTEND Internal Medicine
DX: I63.9 Cerebral infarction, unspecified (principal); G81.94 Hemiplegia, unspecified affecting left nondominant side; F17.213 Nicotine dependence, cigarettes, with withdrawal; I16.0 Hypertensive urgency; N18.9 Chronic kidney disease, unspecified; I12.9 Hypertensive chronic kidney disease with stage 1 through stage 4 chronic kidney disease, or unspecified chronic kidney disease; E78.5 Hyperlipidemia, unspecified; R47.1 Dysarthria and anarthria; R47.81 Slurred speech; Z79.899 Other long term (current) drug therapy; Z88.0 Allergy status to penicillin; Z82.49 Family history of ischemic heart disease and other diseases of the circulatory system; Z71.6 Tobacco abuse counseling
CPT/HCPCS: 36415; 70450; 70544; 70551; 71045; 80048; 80061; 82962; 84484; 85025; 85610; 85670; 85730; 93005; 93010; 93306; 93880; 95819; 99406; G0378; A9270-GY

== ENCOUNTER 2018-09-12 20:43 | Inpatient (IN) | payer MEDICARE ==
[2018-09-12 21:06] LABS: Basophils # (Auto) 0.1 K/mm3 (0.0-0.1); Eosinophils # (Auto) 0.3 K/mm3 (0.0-0.4); Eosinophils % (Auto) 2.2 % (0.0-4.3); Hematocrit 34.2 % (30.3-42.9); Hemoglobin 10.9 gm/dl (10.1-14.3); Lymphocytes # (Auto) 3.7 K/mm3 (1.2-5.4); Lymphocytes % (Auto) 32.1 % (13.4-35.0); Mean Corpuscular HGB Conc 32 % (30-34); Mean Corpuscular Volume 84 fl (79-97); Monocytes # (Auto) 0.9 K/mm3 (0.0-0.8); Monocytes % (Auto) 7.6 % (0.0-7.3); Platelet Count 312 K/mm3 (140-440); Red Blood Count 4.09 M/mm3 (3.65-5.03); Red Cell Distribution Width 14.5 % (13.2-15.2)
--- NOTE | 2018-09-12 21:13 | Emergency Department Report ---
ED General Adult HPI - General Stated complaint: POS STROKE Time Seen by Provider: 09/12/18 21:10 - Related Data Previous Rx's Medication Instructions Recorded Last Taken Type ALPRAZolam [Xanax TAB] 1 mg PO QDAY #7 tablet 06/10/18 Unknown Rx Aspirin [Adult Low Dose Aspirin EC] 81 mg PO DAILY #30 tablet. 06/10/18 Unknown Rx AtorvaSTATin [Lipitor] 40 mg PO QHS tablet 06/10/18 Unknown Rx Bisacodyl [Dulcolax suppos] [address] QDAY PRN supp.rect 06/10/18 Unknown Rx Clopidogrel [Plavix] 75 mg PO QDAY #30 tablet 06/10/18 Unknown Rx Losartan/Hydrochlorothiazide 1 each PO DAILY #30 tablet 06/10/18 Unknown Rx [Losartan-Hctz 100-25 mg Tab] Nicotine [Habitrol] 14 mg TD QDAY patch 06/10/18 Unknown Rx risperiDONE [RisperDAL] 1 mg PO QDAY tablet 06/10/18 Unknown Rx traZODone [Desyrel] 100 mg PO QHS tablet 06/10/18 Unknown Rx Allergies Allergy/AdvReac Type Severity Reaction Status Date / Time Penicillins Allergy Hives Verified 06/06/18 09:04 ED Review of Systems ROS: Stated complaint: POS STROKE Other details as noted in HPI ED Past Medical Hx - Past Medical History Hx Hypertension: Yes (FOR 40+ YRS) Hx CVA: Yes Hx Renal Disease: Yes (STAGE 1) Hx HIV: No Additional medical history: High Cholesterol - Social History Smoking Status: Current Every Day Smoker - Medications Home Medications: Home Medications Medication Instructions Recorded Confirmed Last Taken Type ALPRAZolam [Xanax TAB] 1 mg PO QDAY #7 tablet 06/10/18 Unknown Rx Aspirin [Adult Low Dose Aspirin EC] 81 mg PO DAILY #30 tablet. 06/10/18 Unknown Rx AtorvaSTATin [Lipitor] 40 mg PO QHS tablet 06/10/18 Unknown Rx Bisacodyl [Dulcolax suppos] [address] QDAY PRN supp.rect 06/10/18 Unknown Rx Clopidogrel [Plavix] 75 mg PO QDAY #30 tablet 06/10/18 Unknown Rx Losartan/Hydrochlorothiazide 1 each PO DAILY #30 tablet 06/10/18 Unknown Rx [Losartan-Hctz 100-25 mg Tab] Nicotine [Habitrol] 14 mg TD QDAY patch 06/10/18 Unknown Rx risperiDONE [RisperDAL] 1 mg PO QDAY tablet 06/10/18 Unknown Rx traZODone [Desyrel] 100 mg PO QHS tablet 06/10/18 Unknown Rx ED Medical Decision Making - Lab Data Result diagrams: 09/12/18 20:57 Critical care attestation.: If time is entered above; I have spent that time in minutes in the direct care of this critically ill patient, excluding procedure time. ED Disposition Condition: Stable Referrals: CARLOS THRASHER MD [Primary Care Provider] - 3-5 Days
--- NOTE | 2018-09-12 21:14 | Cat Scan Report ---
PROCEDURE: CT HEAD/BRAIN WO CON TECHNIQUE: Computerized tomography of the head was performed without contrast material. CT DOSE LENGTH PRODUCT: 928.1 mGycm HISTORY: neuro deficits <6hrs or sx present upon awakening COMPARISONS: 06/06/2018 . FINDINGS: Moderate degree bilateral cerebral periventricular nonspecific white matter hypodensity is noted as s een on the prior study most likely representing chronic microangiopathy. Old lacunar infarcts are not ed involving left basal ganglia, and alvino. An irregular area of encephalomalacia is noted involving r ight cerebellar hemisphere as seen on the prior study most likely representing an old infarct or hemo rrhage. An acute intra-axial or extra-axial hemorrhage is not identified. Atherosclerotic calcificati on is noted involving internal carotid and vertebral arteries. Bilateral paranasal sinuses and mastoi d air cells are clear. Bones are intact. IMPRESSION: No acute intracranial abnormality. Old lacunar infarcts involving left basal ganglia and alvino. Irregular encephalomalacia right cerebellar hemisphere This document is electronically signed by Maynor Castañeda MD., September 12 2018 09:12:29 PM ET
--- NOTE | 2018-09-12 21:19 | Emergency Department Report ---
ED General Adult HPI - General Stated complaint: POS STROKE Time Seen by Provider: 09/12/18 21:10 - History of Present Illness Initial comments: 68-year-old female with a prior history of a CVA presents with a complaint of right-sided weakness and slurred speech. Patient states the slurred speech began at 12 PM. Patient has a prior history of a CVA which was evaluated and treated here at this hospital in May 2018. Patient per family member came h ome and found patient in this state tonight and EMS was called. Patient denies vomiting or chest pain or shortness of breath. - Related Data Previous Rx's Medication Instructions Recorded Last Taken Type Aspirin [Adult Low Dose Aspirin EC] 81 mg PO DAILY #30 tablet. 06/10/18 Unknown Rx AtorvaSTATin [Lipitor] 40 mg PO QHS tablet 06/10/18 Unknown Rx Clopidogrel [Plavix] 75 mg PO QDAY #30 tablet 06/10/18 Unknown Rx Losartan/Hydrochlorothiazide 1 each PO DAILY #30 tablet 06/10/18 Unknown Rx [Losartan-Hctz 100-25 mg Tab] traZODone [Desyrel] 100 mg PO QHS tablet 06/10/18 Unknown Rx Allergies Allergy/AdvReac Type Severity Reaction Status Date / Time Penicillins Allergy Hives Verified 06/06/18 09:04 ED Review of Systems ROS: Stated complaint: POS STROKE Other details as noted in HPI Constitutional: denies: chills, fever Eyes: denies: eye pain, eye discharge, vision change ENT: denies: ear pain, throat pain Respiratory: denies: cough, shortness of breath, wheezing Cardiovascular: denies: chest pain, palpitations Endocrine: no symptoms reported Gastrointestinal: denies: abdominal pain, nausea, diarrhea Genitourinary: denies: urgency, dysuria, discharge Musculoskeletal: denies: back pain, joint swelling, arthralgia Skin: denies: rash, lesions Neurological: weakness, other (speech changes) Psychiatric: denies: anxiety, depression Hematological/Lymphatic: denies: easy bleeding, easy bruising ED Past Medical Hx - Past Medical History Hx Hypertension: Yes (FOR 40+ YRS) Hx CVA: Yes Hx Renal Disease: Yes (STAGE 1) Hx HIV: No Additional medical history: High Cholesterol - Social History Smoking Status: Current Every Day Smoker - Medications Home Medications: Home Medications Medication Instructions Recorded Confirmed Last Taken Type Aspirin [Adult Low Dose Aspirin EC] 81 mg PO DAILY #30 tablet. 06/10/18 09/12/18 Unknown Rx AtorvaSTATin [Lipitor] 40 mg PO QHS tablet 06/10/18 09/12/18 Unknown Rx Clopidogrel [Plavix] 75 mg PO QDAY #30 tablet 06/10/18 09/12/18 Unknown Rx Losartan/Hydrochlorothiazide 1 each PO DAILY #30 tablet 06/10/18 09/12/18 Unkno wn Rx [Losartan-Hctz 100-25 mg Tab] traZODone [Desyrel] 100 mg PO QHS tablet 06/10/18 09/12/18 Unknown Rx ED Physical Exam - General General appearance: alert, in no apparent distress - Head Head exam: Present: atraumatic, normocephalic - Eye Eye exam: Present: normal appearance - ENT ENT exam: Present: mucous membranes moist - Neck Neck exam: Present: normal inspection - Respiratory Respiratory exam: Present: normal lung sounds bilaterally. Absent: respiratory distress - Cardiovascular Cardiovascular Exam: Present: regular rate, normal rhythm. Absent: systolic murmur, diastolic murmur, rubs, gallop - GI/Abdominal GI/Abdominal exam: Present: soft, normal bowel sounds - Extremities Exam Extremities exam: Present: normal inspection - Back Exam Back exam: Present: normal inspection - Neurological Exam Neurological exam: Present: alert, oriented X3 - Expanded Neurological Exam Expanded Neurological exam: Present: expressive aphasia Patient oriented to: Present: person, place, time Speech: Present: expressive aphasia Cranial nerves: Gag Reflex: Normal, Tongue Deviation: Normal, Facial Palsy with Forehead Movement: Abnormal Right Cerebellar function: Finger to Nose: Normal Upper motor neuron: Andrew Neglect: Normal Sensory exam: Upper Extremity Light Touch: Normal, Lower Extremity Light Touch: Normal Motor strength exam: RUE: 4, LUE: 5, RLE: 4, LLE: 5 Best Eye Response ([place]): (4) open spontaneously Best Motor Response ([place]): (6) obeys commands Best Verbal Response ([place]): (5) oriented [place] Total: 15 - Psychiatric Psychiatric exam: Present: normal affect, normal mood - Skin Skin exam: Present: warm, dry, intact, normal color. Absent: rash ED Course Vital Signs 09/12/18 09/12/18 09/12/18 21:24 21:29 22:00 Temperature 98.5 F Pulse Rate 77 82 Respiratory 12 12 14 Rate Blood Pressure 172/73 158/86 O2 Sat by Pulse 98 98 98 Oximetry 09/12/18 23:00 Temperature Pulse Rate 71 Respiratory 11 L Rate Blood Pressure 149/83 O2 Sat by Pulse 99 Oximetry ED Medical Decision Making - Lab Data Result diagrams: 09/12/18 20:57 09/12/18 20:57 - EKG Data -: EKG Interpreted by Me EKG shows normal: sinus rhythm Rate: normal - Medical Decision Making Case was discussed with Tylenol and is states patient is not a TPA candidate. Patient to be admitted for continued management and treatment to the hospitalist service. - Differential Diagnosis CVA; TIA;Abnormality; anemia Critical Care Time: Yes Critical care time in (mins) excluding proc time.: 42 Critical care attestation.: If time is entered above; I have spent that time in minutes in the direct care of this critically ill patient, excluding procedure time. Critical care time includes time spent in direct bedside care, frequent reassessments, and physician consultation. ED Disposition Clinical Impression: CVA (cerebral vascular accident) Disposition: - OP ADMIT IP TO THIS HOSP Is pt being admited?: Yes Does the pt Need Aspirin: No Condition: Fair Referrals: MAYITO PATTERSON MD [Referring] - 3-5 Days CARLOS THRASHER MD [Primary Care Provider] - 3-5 Days Time of Disposition: 02:12 Print Language: UKRAINIAN
[2018-09-12 21:21] LABS: INR 0.92 (0.87-1.13)
--- NOTE | 2018-09-12 21:22 | Emergency Department Report ---
ED Neuro Deficit HPI - General Chief Complaint: Neuro Symptoms/Deficit Stated Complaint: POS STROKE Time Seen by Provider: 09/12/18 21:10 Source: patient Limitations: No Limitations - History of Present Illness Initial Comments: * history of stroke in May * residual R side weakness * work-up included unremarkable MRA head, Echo, carotid U/S * on ASA/Plavix for secondary prevention * while eating lunch today sudden onset of worsened dysarthria and dysphagia * maybe some worsening of R side weakness * to ER for further evaluation this evening * arrived at 2042 * call to teleneuro at 2047 * connected at 2052 * eval aT 2058 * NIHSS 6 * mixture of chronic and acute deficits * no tPA due to time * symptoms consistent with brainstem lacunar stroke so no indication for SEA work-up Last Observed Normal: 12:00 - Related Data Home Medications: Previous Rx's Medication Instructions Recorded Last Taken Type Aspirin [Adult Low Dose Aspirin EC] 81 mg PO DAILY #30 tablet. 06/10/18 Unknown Rx AtorvaSTATin [Lipitor] 40 mg PO QHS tablet 06/10/18 Unknown Rx Clopidogrel [Plavix] 75 mg PO QDAY #30 tablet 06/10/18 Unknown Rx Losartan/Hydrochlorothiazide 1 each PO DAILY #30 tablet 06/10/18 Unknown Rx [Losartan-Hctz 100-25 mg Tab] traZODone [Desyrel] 100 mg PO QHS tablet 06/10/18 Unknown Rx Allergies/Adverse Reactions: Allergies Allergy/AdvReac Type Severity Reaction Status Date / Time Penicillins Allergy Hives Verified 06/06/18 09:04 ED Review of Systems ROS: Stated complaint: POS STROKE Other details as noted in HPI ED Past Medical Hx - Past Medical History Hx Hypertension: Yes (FOR 40+ YRS) Hx CVA: Yes Hx Renal Disease: Yes (STAGE 1) Hx HIV: No Additional medical history: High Cholesterol - Social History Smoking Status: Current Every Day Smoker - Medications Home Medications: Home Medications Medication Instructions Recorded Confirmed Last Taken Type Aspirin [Adult Low Dose Aspirin EC] 81 mg PO DAILY #30 tablet. 06/10/18 09/12/18 Unknown Rx AtorvaSTATin [Lipitor] 40 mg PO QHS tablet 06/10/18 09/12/18 Unknown Rx Clopidogrel [Plavix] 75 mg PO QDAY #30 tablet 06/10/18 09/12/18 Unknown Rx Losartan/Hydrochlorothiazide 1 each PO DAILY #30 tablet 06/10/18 09/12/18 Unknown Rx [Losartan-Hctz 100-25 mg Tab] traZODone [Desyrel] 100 mg PO QHS tablet 06/10/18 09/12/18 Unknown Rx ED Neuro Physical Exam - General Suspected Stroke: Yes - NIHSS Assessment Interval: Baseline 1a. Level of Consciousness: alert/keenly responsive 1b. LOC Questions: answers both correctly 1c. LOC Commands: performs tasks correctly 2. Best Gaze: partial gaze palsy 3. Visual: no visual loss 4. Facial Palsy: normal symmetrical movement 5b. Motor Arm Right: drift 5a. Motor Arm Left: no drift 6a. Motor Leg Left: drift 6b. Motor Leg Right: no drift 7. Limb Ataxia: absent 8. Sensory: mild/moderate sensory loss 9. Best Language: no aphasia 10. Dysarthria: severe dysarthria 11. Extinction/Inattention: no abnormality Total Score: 6 Stroke Severity: Moderate Stroke ED Course Vital Signs 09/12/18 09/12/18 09/12/18 21:24 21:29 22:00 Temperature 98.5 F Pulse Rate 77 82 Respiratory 12 12 14 Rate Blood Pressure 172/73 158/86 O2 Sat by Pulse 98 98 98 Oximetry 09/12/18 23:00 Temperature Pulse Rate 71 Respiratory 11 L Rate Blood Pressure 149/83 O2 Sat by Pulse 99 Oximetry - Consultations Consultation #1: 09/12/18 21:23 Teleneurology Assessment/Plan: Brainstem stroke * likely new brain stem stroke, possibly expansion or reactivation of previous stroke from Rudi * NIHSS 6 * no tpA as last normal at noon * no SEA as no cortical findings * admission for further work-up, likely needs repeat MRI brain * continue ASA/Plavix * dysphagia screen * DVT prophylaxis * neuro consult * discussed with ED physician - Lab Data Result diagrams: 09/12/18 20:57 09/12/18 20:57 Lab Results 09/12/18 09/12/18 09/12/18 Range/Units 20:57 20:57 20:57 WBC 11.5 H (4.5-11.0) K/mm3 RBC 4.09 (3.65-5.03) M/mm3 Hgb 10.9 (10.1-14.3) gm/dl Hct 34.2 (30.3-42.9) % MCV 84 (79-97) fl MCH 27 L (28-32) pg MCHC 32 (30-34) % RDW 14.5 (13.2-15.2) % Plt Count 312 (140-440) K/mm3 Lymph % (Auto) 32.1 (13.4-35.0) % [place] % (Auto) 7.6 H (0.0-7.3) % Eos % (Auto) 2.2 (0.0-4.3) % Baso % (Auto) 1.0 (0.0-1.8) % Lymph # 3.7 (1.2-5.4) K/mm3 [place] # 0.9 H (0.0-0.8) K/mm3 Eos # 0.3 (0.0-0.4) K/mm3 Baso # 0.1 (0.0-0.1) K/mm3 Seg Neutrophils % 57.1 (40.0-70.0) % Seg Neutrophils # 6.5 (1.8-7.7) K/mm3 PT 12.9 (12.2-14.9) Sec. INR 0.92 (0.87-1.13) APTT 32.0 (24.2-36.6) Sec. Thrombin Time (15.1-19.6) Sec. Sodium 141 (137-145) mmol/L Potassium 3.9 (3.6-5.0) mmol/L Chloride 100.7 (98-107) mmol/L Carbon Dioxide 29 (22-30) mmol/L Anion Gap 15 mmol/L BUN 22 H (7-17) mg/dL Creatinine 1.1 (0.7-1.2) mg/dL Estimated GFR 49 ml/min BUN/Creatinine Ratio 20 % Glucose 111 H (65-100) mg/dL Calcium 9.8 (8.4-10.2) mg/dL Troponin T < 0.010 (0.00-0.029) ng/mL 09/12/18 Range/Units 20:57 WBC (4.5-11.0) K/mm3 RBC (3.65-5.03) M/mm3 Hgb (10.1-14.3) gm/dl Hct (30.3-42.9) % MCV (79-97) fl MCH (28-32) pg MCHC (30-34) % RDW (13.2-15.2) % Plt Count (140-440) K/mm3 Lymph % (Auto) (13.4-35.0) % [place] % (Auto) (0.0-7.3) % Eos % (Auto) (0.0-4.3) % Baso % (Auto) (0.0-1.8) % Lymph # (1.2-5.4) K/mm3 [place] # (0.0-0.8) K/mm3 Eos # (0.0-0.4) K/mm3 Baso # (0.0-0.1) K/mm3 Seg Neutrophils % (40.0-70.0) % Seg Neutrophils # (1.8-7.7) K/mm3 PT (12.2-14.9) Sec. INR (0.87-1.13) APTT (24.2-36.6) Sec. Thrombin Time 16.3 (15.1-19.6) Sec. Sodium (137-145) mmol/L Potassium (3.6-5.0) mmol/L Chloride (98-107) mmol/L Carbon Dioxide (22-30) mmol/L Anion Gap mmol/L BUN (7-17) mg/dL Creatinine (0.7-1.2) mg/dL Estimated GFR ml/min BUN/Creatinine Ratio % Glucose (65-100) mg/dL Calcium (8.4-10.2) mg/dL Troponin T (0.00-0.029) ng/mL Critical care attestation.: If time is entered above; I have spent that time in minutes in the direct care of this critically ill patient, excluding procedure time. ED Disposition Clinical Impression: CVA (cerebral vascular accident) Disposition: [id number] OP ADMIT IP TO THIS HOSP Is pt being admited?: No Does the pt Need Aspirin: No (defer to ER physician to order) Referrals: MAYITO PATTERSON MD [Referring] - 3-5 Days CARLOS THRASHER MD [Primary Care Provider] - 3-5 Days
[2018-09-12 21:23] LABS: BUN/Creatinine Ratio 20; Blood Urea Nitrogen 22 mg/dL (7-17); Calcium 9.8 mg/dL (8.4-10.2); Hemolysis Index 10
--- NOTE | 2018-09-13 01:34 | Cat Scan Report ---
PROCEDURE: CT ANGIO HEAD TECHNIQUE: A CT angiogram was performed following the intravenous injection of iodinated contrast. S agittal, coronal, and rotational MIP reconstructions of the brain were reviewed. HISTORY: neck pain COMPARISONS: CT brain 09/12/2018 FINDINGS: In the posterior fossa both vertebral arteries and basilar artery are widely patent. There is normal bifurcation into both posterior cerebral arteries. In the anterior circulation the cavernous and supraclinoid internal carotid arteries opacify normally . There is normal bifurcation into the anterior and middle cerebral arteries bilaterally. There is no evidence of arterial stenosis, thrombosis or aneurysm. The dural venous sinuses opacify normally. Th ere are no enhancing lesions. IMPRESSION: Unremarkable CT angiogram of the brain. Remote stroke in the right cerebellar hemisphere noted.. This document is electronically signed by Dewey Mcneal MD., September 13 2018 01:32:10 AM ET
--- NOTE | 2018-09-13 02:08 | Cat Scan Report ---
PROCEDURE: CT ANGIO NECK TECHNIQUE: Computerized tomographic angiography of the neck was performed after the IV injection of iodinated nonionic contrast including image processing. The image data was postprocessed using 2-dime nsional multiplanar reformatted (MPR) and 3-dimensional (MIP and/or volume rendered) techniques. HISTORY: neck pain s/p stroke COMPARISONS: None . Note: Assessment of carotid artery stenosis is based on measurement of the distal internal carotid a rtery diameter as the denominator for stenosis calculations and the [place] Symptomatic Caroti d Endarterectomy Trial (NASCET) stenosis criteria. FINDINGS: Sinuses: Normal . Non vascular cervical structures: There is significant cervical spondylosis and degenerative disc ch derik at the C3-4 through the C6-7 levels. . Aortic arch: Normal . Right carotid artery: Minimal atherosclerotic plaque identified at the carotid bulb. No evidence of stenosis. . Left carotid artery: Minimal atherosclerotic plaque identified at the carotid bulb. No stenosis. . Vertebral arteries: Normal . IMPRESSION: There is no evidence of hemodynamically significant stenosis or occlusions of the caroti d arteries. The vertebral arteries are normal. . This document is electronically signed by Marnie Gonzales DO., September 13 2018 02:05:56 AM ET
[2018-09-13] MEDS ORDERED: SODIUM CHLORIDE FLUSH SYRINGE 10 ML IV PRN (06:08)
[2018-09-13] MEDS ORDERED: ZOFRAN IV PRN (06:08)
--- NOTE | 2018-09-13 06:16 | History and Physical Report ---
History of Present Illness Date of examination: 09/13/18 Date of admission: 09/13/18 03:39 History of present illness: 68-year-old woman with a history of hypertension, CVA with residual right-sided weakness was brought to emergency room with complaints of worsening right-sided weakness, difficulty swallowing and difficulty speaking. She was brought to the emergency room much later when family was available Review of systems Constitutional: no weight loss, chills, fever Ears, eyes, nose, mouth and throat: no nasal congestion, no nasal discharge, no sinus pressure, no vision change, no red eye. Neck: No neck pain or rigidity. Cardiovascular: no palpitations, chest pain Respiratory: no cough, shortness of breath Gastrointestinal: no hematochezia, abdominal pain Genitourinary : no frequency , no hematuria Musculoskeletal: no joint swelling or muscle ache Integumentary: no rash, no pruritis Neurological: no parathesias, +focal weakness Endocrine: no cold or heat intolerance, no polyuria or polydipsia Hematologic/Lymphatic: no easy bruising, no easy bleeding, no gland swelling Allergic/Immunologic: no urticaria, no angioedema. PAST MEDICAL HISTORY:hypertension, CVA PAST SURGICAL HISTORY: None SOCIAL HISTORY: Denies alcohol, drugs, tobacco FAMILY HISTORY: Hypertension Medications and Allergies Allergies Allergy/AdvReac Type Severity Reaction Status Date / Time Penicillins Allergy Hives Verified 06/06/18 09:04 Home Medications Medication Instructions Recorded Confirmed Last Taken Type Aspirin [Adult Low Dose Aspirin EC] 81 mg PO DAILY #30 tablet. 06/10/18 09/20/18 09/20/18 Rx AtorvaSTATin [Lipitor] 40 mg PO QHS tablet 06/10/18 09/20/18 09/20/18 Rx Clopidogrel [Plavix] 75 mg PO QDAY #30 tablet 06/10/18 09/20/18 09/20/18 Rx Losartan/Hydrochlorothiazide 1 each PO DAILY #30 tablet 06/10/18 09/20/18 09/20/18 Rx [Losartan-Hctz 100-25 mg Tab] traZODone [Desyrel] 100 mg PO QHS tablet 06/10/18 09/20/18 09/20/18 Rx Enoxaparin [Lovenox] 40 mg SUB-Q QDAY syringe 09/20/18 09/20/18 09/20/18 Rx Pantoprazole [Protonix TAB] 40 mg PO DAILY tablet 09/20/18 09/20/18 09/20/18 Rx Active Meds: Active Medications Aspirin (Aspirin) 300 mg NM QDAY TAMICA Enoxaparin Sodium (Lovenox) 40 mg SUB-Q QDAY TAMICA Sodium Chloride (Nacl 0.45% 1000 Ml) 1,000 mls @ 75 mls/hr IV DIRECT TAMICA Ondansetron HCl (Zofran) 4 mg IV Q8H PRN PRN Reason: Nausea And Vomiting Sodium Chloride (Sodium Chloride Flush Syringe 10 Ml) 10 ml INJ PRN PRN PRN Reason: LINE FLUSH Exam - Physical Exam Narrative exam: General Apperance: The patient lying in bed, breathing comfortable HEENT: Normocephalic, atraumatic. Pupils equally round and reactive to light, EOMI, no sclericterus or JVD or thyromegaly or nodule. , no carotid bruit, mucous membranes moist, no exudate or erythema Heart: S1-S2, regular is rhythm Lungs: Clear to auscultation bilaterally, breathing comfortable Abdomen: Positive bowel sounds, soft, nontender, nondistended, no organomegaly Extremities: No edema cyanosis clubbing Skin: no rash, nodule, warm and dry Neuro: cranial nerves 2-12 intact, speech is fluent, motor RLE -3/5, RUE 0/5, NO sensory intact - Constitutional Vitals: Temp Pulse Resp BP Pulse Ox 98.5 F 102 H 16 134/97 97 09/12/18 21:24 09/13/18 02:00 09/13/18 02:00 09/13/18 02:00 09/13/18 02:00 Results - Labs CBC & Chem 7: 09/20/18 04:42 09/20/18 04:42 Labs: Abnormal lab results 09/12/18 09/12/18 Range/Units 20:57 20:57 WBC 11.5 H (4.5-11.0) K/mm3 MCH 27 L (28-32) pg [place] % (Auto) 7.6 H (0.0-7.3) % Clinch # 0.9 H (0.0-0.8) K/mm3 BUN 22 H (7-17) mg/dL Glucose 111 H (65-100) mg/dL - Imaging and Cardiology CT Scan - head: report reviewed Assessment and Plan CT head and neck reviewed Assessment Acute CVA Hypertension Plan Admit to medicine Obtain MRI of the head and neck, echo Start aspirin, consult neurology, physical and occupational, speech therapy Hold statin for now until patient is able to swallow IV hydralazine for blood pressure control, start fluid DVT prophylaxis
[2018-09-13] MEDS ORDERED: APRESOLINE IV PRN (06:17)
[2018-09-13] MEDS ORDERED: NACL 0.45% 1000 ML 1,000 ML IV SCH (07:00)
[2018-09-13] MEDS ORDERED: ASPIRIN PR ONE (10:22)
[2018-09-13] MEDS ORDERED: LOVENOX SUB-Q ONE (10:22)
[2018-09-13] MEDS: ASPIRIN PR SCH (10:26)
[2018-09-13] MEDS: LOVENOX SUB-Q SCH (10:26)
--- NOTE | 2018-09-13 10:52 | Magnetic Resonance Report ---
MRI BRAIN WITHOUT CONTRAST: 09/13/18 CLINICAL: Stroke. COMPARISON: 09/13/18 CTA head, 09/12/18 CT head and 06/06/18 MRI TECHNIQUE: Axial diffusion, T1, T2, gradient echo T2*, coronal and axial FLAIR and sagittal T1 sequences on a 1.5 Jen magnet. FINDINGS: The ventricles and sulci are normal for age. Focal restricted diffusion of the right basal ganglia involving the posterior limb of the internal capsule. No other restricted diffusion. No mass effect and no hemorrhage. Several bilateral basal ganglia chronic microbleeds and a single right temporal lobe chronic microbleeds on the gradient echo sequence. Bilateral thalamic chronic lacunar infarcts as well several chronic lacunar infarcts of the alvino. Extensive bilateral periventricular and subcortical white matter hyperintensity on FLAIR and T2. Normal pituitary and optic chiasm. A chronic infarct of the right cerebellum with encephalomalacia measuring 3.7 x 2.3 cm. Intact vascular flow voids. Mild mild lateral ethmoid sinus opacification and enlargement of the nasal turbinates. The rest of the sinuses are clear. The orbits, and soft tissues are normal. Normal calvarium and skull base. IMPRESSION: 1. An acute/subacute nonhemorrhagic right basal ganglia infarct involving the posterior limb of the internal capsule. 2. Numerous chronic lacunar infarcts which include bilateral thalami and the alvino. 3. A large chronic infarct right cerebellum. 4. Extensive chronic white matter microangiopathy. 5. Numerous chronic microbleeds on the gradient echo sequence.
--- NOTE | 2018-09-13 10:55 | Magnetic Resonance Report ---
MRA HEAD WITHOUT CONTRAST: 09/13/18 03:39:00 CLINICAL: Stroke. TECHNIQUE: Axial 3-D [id number] MR angiography of the [place] with review of axial source images. FINDINGS: A high-grade stenosis at the origin of the right MCA. [place] is otherwise intact with no other high-grade stenosis, aneurysm or occlusion. Symmetric blood flow in the anterior, middle and posterior cerebral arteries. Normal basilar and vertebral arteries. IMPRESSION: High-grade right MCA stenosis.
--- NOTE | 2018-09-13 13:36 | XRay Report ---
AP CHEST: HISTORY: Stroke AP view of the chest with rotation to the right demonstrates a normal mediastinal and cardiac contour with clear lungs and normal bony and soft tissue structures. IMPRESSION: Unremarkable AP chest.
--- NOTE | 2018-09-13 14:23 | Event Note ---
Date: 09/13/18 Patient with previous stroke with right sided weakness, presents with more weakness right side. I have seen and examined her. family at bedside. continue current management. neurology to evaluate.
[2018-09-13] MEDS ORDERED: D5/0.45NS 1,000 ML IV ONE (15:25)
[2018-09-13] MEDS: D5/0.45NS 1,000 ML IV SCH (16:01)
[2018-09-13] MEDS: BENADRYL IV PRN (22:43)
[2018-09-14] MEDS: PLAVIX PO SCH ×2 (03:48→10:13)
[2018-09-14 06:20] LABS: Chol/HDL Ratio 2.66 %
[2018-09-14] MEDS ORDERED: PROTONIX IV SCH (10:00)
[2018-09-14] MEDS: D5/0.45NS 1,000 ML IV SCH (10:12)
[2018-09-14] MEDS: LOVENOX SUB-Q SCH (10:13)
[2018-09-14] MEDS: ASPIRIN PR SCH (10:13)
--- NOTE | 2018-09-14 12:50 | Fluoroscopy Report ---
MODIFIED BARIUM SWALLOW History: dysphagia. Findings: Video radiography was provided by the radiologist for speech therapy to assess the swallowing mechanism. 1 fluoroscopic image was captured. Impression: Successful modified barium swallow.
--- NOTE | 2018-09-14 13:32 | Progress Note ---
Subjective Date of service: 09/14/18 Interval history: prior hx of strokes x 2 now with worsening sppech apears to be recurrent lacunar stroke spoke to family Thanks Objective - Laboratory Findings CBC and BMP: 09/12/18 20:57 09/12/18 20:57 Abnormal Lab Findings: Abnormal Labs 09/12/18 09/12/18 09/14/18 20:57 20:57 05:12 WBC 11.5 H MCH 27 L [place] % (Auto) 7.6 H [place] # 0.9 H BUN 22 H Glucose 111 H HDL Cholesterol 66 H
--- NOTE | 2018-09-14 19:18 | Progress Note ---
Assessment and Plan Assessment and plan: Acute ischemic stroke right basal ganglia Cont Aspirin. Plavix Consult neurology PT/OT History of previous stroke with residual right sided weakness Hypertension Mionitor BP Full CODE STATUS Discussed with sister at bedside History Interval history: Still has slurred speech Hospitalist Physical - Physical exam Narrative exam: Gen: Not in acute distress, lying in bed HEENT: Normocephalic, atraumatic Neck: supple, no JVD Heart: S1 and S2 reg, no murmurs, rubs or gallop Lungs: clear, no crackles Abd: soft, non tender, non distended, normal BS Ext: No edema, no clubbing, no cyanosis, Neuro: Awake,alert, dysartria, right hemiparesis Psych:Normal mood - Constitutional Vitals: Temp Pulse Resp BP Pulse Ox 99.3 F 95 H 16 148/83 97 09/14/18 17:01 09/14/18 17:01 09/14/18 17:01 09/14/18 17:01 09/14/18 17:01 Results - Labs CBC & Chem 7: 09/15/18 05:06 09/15/18 05:06 Labs: Laboratory Last Values WBC 11.5 K/mm3 (4.5-11.0) H 09/12/18 20:57 RBC 4.09 M/mm3 (3.65-5.03) 09/12/18 20:57 Hgb 10.9 gm/dl (10.1-14.3) 09/12/18 20:57 Hct 34.2 % (30.3-42.9) 09/12/18 20:57 MCV 84 fl (79-97) 09/12/18 20:57 MCH 27 pg (28-32) L 09/12/18 20:57 MCHC 32 % (30-34) 09/12/18 20:57 RDW 14.5 % (13.2-15.2) 09/12/18 20:57 Plt Count 312 K/mm3 (140-440) 09/12/18 20:57 Lymph % (Auto) 32.1 % (13.4-35.0) 09/12/18 20:57 [place] % (Auto) 7.6 % (0.0-7.3) H 09/12/18 20:57 Eos % (Auto) 2.2 % (0.0-4.3) 09/12/18 20:57 Baso % (Auto) 1.0 % (0.0-1.8) 09/12/18 20:57 Lymph # 3.7 K/mm3 (1.2-5.4) 09/12/18 20:57 [place] # 0.9 K/mm3 (0.0-0.8) H 09/12/18 20:57 Eos # 0.3 K/mm3 (0.0-0.4) 09/12/18 20:57 Baso # 0.1 K/mm3 (0.0-0.1) 09/12/18 20:57 Seg Neutrophils % 57.1 % (40.0-70.0) 09/12/18 20:57 Seg Neutrophils # 6.5 K/mm3 (1.8-7.7) 09/12/18 20:57 PT 12.9 Sec. (12.2-14.9) 09/12/18 20:57 INR 0.92 (0.87-1.13) 09/12/18 20:57 APTT 32.0 Sec. (24.2-36.6) 09/12/18 20:57 Thrombin Time 16.3 Sec. (15.1-19.6) 09/12/18 20:57 Sodium 141 mmol/L (137-145) 09/12/18 20:57 Potassium 3.9 mmol/L (3.6-5.0) 09/12/18 20:57 Chloride 100.7 mmol/L (98-107) 09/12/18 20:57 Carbon Dioxide 29 mmol/L (22-30) 09/12/18 20:57 Anion Gap 15 mmol/L 09/12/18 20:57 BUN 22 mg/dL (7-17) H 09/12/18 20:57 Creatinine 1.1 mg/dL (0.7-1.2) 09/12/18 20:57 Estimated GFR 49 ml/min 09/12/18 20:57 BUN/Creatinine Ratio 20 % 09/12/18 20:57 Glucose 111 mg/dL (65-100) H 09/12/18 20:57 POC Glucose 93 (70-105) 09/12/18 21:13 Calcium 9.8 mg/dL (8.4-10.2) 09/12/18 20:57 Troponin T < 0.010 ng/mL (0.00-0.029) 09/12/18 20:57 Triglycerides 86 mg/dL (2-149) 09/14/18 05:12 Cholesterol 176 mg/dL (50-199) 09/14/18 05:12 LDL Cholesterol Direct 100 mg/dL (50-130) 09/14/18 05:12 HDL Cholesterol 66 mg/dL (40-59) H 09/14/18 05:12 Cholesterol/HDL Ratio 2.66 % 09/14/18 05:12 Active Medications - Current Medications Current Medications: Generic Name Dose Route Start Last Admin Trade Name Freq PRN Reason Stop Dose Admin Aspirin 300 mg 09/13/18 10:00 09/14/18 10:13 Aspirin [place] 300 mg QDAY TAMICA Administration Atorvastatin Calcium 40 mg 09/13/18 23:45 09/14/18 03:48 Lipitor PO 40 mg QHS TAMICA Administration Clopidogrel Bisulfate 75 mg 09/13/18 23:45 09/14/18 10:13 Plavix PO 75 mg QDAY TAMICA Administration Diphenhydramine HCl 25 mg 09/13/18 22:08 09/13/18 22:43 Benadryl IV 25 mg QHS PRN Administration Itching Enoxaparin Sodium 40 mg 09/13/18 10:00 09/14/18 10:13 Lovenox SUB-Q 40 mg QDAY TAMICA Administration Hydralazine HCl 5 mg 09/13/18 06:17 Apresoline IV Q6H PRN Hypertension Dextrose/Sodium Chloride 1,000 mls @ 50 mls/hr 09/13/18 07:00 09/14/18 10:12 D5/0.45ns IV 50 mls/hr DIRECT TAMICA Administration Ondansetron HCl 4 mg 09/13/18 06:08 Zofran IV Q8H PRN Nausea And Vomiting Pantoprazole Sodium 40 mg 09/14/18 10:00 09/14/18 10:13 Protonix IV 40 mg QDAY TAMICA Administration Sodium Chloride 10 ml 09/13/18 06:08 Sodium Chloride Flush Syringe 10 Ml IV PRN PRN LINE FLUSH Nutrition/Malnutrition Assess - Dietary Evaluation Nutrition/Malnutrition Findings: Nutrition Notes Start: 09/14/18 10:13 Freq: Status: Active Protocol: Document 04/24/19 10:13 CP (Rec: 09/14/18 10:16 CP [id number]) Co-Sign 09/14/18 10:13 LP Nutrition Notes 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 Pt has a elza score of 17, but was gone for EKG during time of visit. Nutrition Intervention Follow-Up By: 09/15/18 Additional Comments F/U: Diet advancement/intakes/ protein needs
[2018-09-14] MEDS: BENADRYL IV PRN (22:47)
[2018-09-15 05:58] LABS: Hematocrit 34.1 % (30.3-42.9); Hemoglobin 11.2 gm/dl (10.1-14.3); Mean Corpuscular HGB Conc 33 % (30-34); Mean Corpuscular Volume 83 fl (79-97); Platelet Count 314 K/mm3 (140-440); Red Blood Count 4.12 M/mm3 (3.65-5.03); Red Cell Distribution Width 14.5 % (13.2-15.2)
[2018-09-15 06:20] LABS: Calcium 9.5 mg/dL (8.4-10.2)
[2018-09-15] MEDS: PLAVIX PO SCH (09:28)
[2018-09-15] MEDS: LOVENOX SUB-Q SCH (09:28)
[2018-09-15] MEDS: PROTONIX PO SCH (09:28)
[2018-09-15] MEDS: ASPIRIN PR SCH (09:28)
[2018-09-15] MEDS: D5/0.45NS 1,000 ML IV SCH (12:19)
--- NOTE | 2018-09-15 16:19 | Progress Note ---
Assessment and Plan Assessment and plan: Acute ischemic stroke right basal ganglia Cont Aspirin. Plavix Neurology following PT recommends acute rehab PT/OT eval History of previous stroke with residual right sided weakness Hypertension Mionitor BP Full CODE STATUS History Interval history: Still has slurred speech Hospitalist Physical - Physical exam Narrative exam: Gen: Not in acute distress, lying in bed HEENT: Normocephalic, atraumatic Neck: supple, no JVD Heart: S1 and S2 reg, no murmurs, rubs or gallop Lungs: clear, no crackles Abd: soft, non tender, non distended, normal BS Ext: No edema, no clubbing, no cyanosis, Neuro: Awake,alert, dysartria, right hemiparesis Psych:Normal mood - Constitutional Vitals: Temp Pulse Resp BP Pulse Ox 98.5 F 85 16 130/77 97 09/15/18 09:02 09/15/18 09:02 09/15/18 09:02 09/15/18 09:02 09/15/18 09:02 Results - Labs CBC & Chem 7: 09/15/18 05:06 09/15/18 05:06 Labs: Laboratory Last Values WBC 9.1 K/mm3 (4.5-11.0) 09/15/18 05:06 RBC 4.12 M/mm3 (3.65-5.03) 09/15/18 05:06 Hgb 11.2 gm/dl (10.1-14.3) 09/15/18 05:06 Hct 34.1 % (30.3-42.9) 09/15/18 05:06 MCV 83 fl (79-97) 09/15/18 05:06 MCH 27 pg (28-32) L 09/15/18 05:06 MCHC 33 % (30-34) 09/15/18 05:06 RDW 14.5 % (13.2-15.2) 09/15/18 05:06 Plt Count 314 K/mm3 (140-440) 09/15/18 05:06 Lymph % (Auto) 32.1 % (13.4-35.0) 09/12/18 20:57 [place] % (Auto) 7.6 % (0.0-7.3) H 09/12/18 20:57 Eos % (Auto) 2.2 % (0.0-4.3) 09/12/18 20:57 Baso % (Auto) 1.0 % (0.0-1.8) 09/12/18 20:57 Lymph # 3.7 K/mm3 (1.2-5.4) 09/12/18 20:57 [place] # 0.9 K/mm3 (0.0-0.8) H 09/12/18 20:57 Eos # 0.3 K/mm3 (0.0-0.4) 09/12/18 20:57 Baso # 0.1 K/mm3 (0.0-0.1) 09/12/18 20:57 Seg Neutrophils % 57.1 % (40.0-70.0) 09/12/18 20:57 Seg Neutrophils # 6.5 K/mm3 (1.8-7.7) 09/12/18 20:57 PT 12.9 Sec. (12.2-14.9) 09/12/18 20:57 INR 0.92 (0.87-1.13) 09/12/18 20:57 APTT 32.0 Sec. (24.2-36.6) 09/12/18 20:57 Thrombin Time 16.3 Sec. (15.1-19.6) 09/12/18 20:57 Sodium 140 mmol/L (137-145) 09/15/18 05:06 Potassium 3.8 mmol/L (3.6-5.0) 09/15/18 05:06 Chloride 101.3 mmol/L (98-107) 09/15/18 05:06 Carbon Dioxide 25 mmol/L (22-30) 09/15/18 05:06 Anion Gap 18 mmol/L 09/15/18 05:06 BUN 16 mg/dL (7-17) 09/15/18 05:06 Creatinine 1.2 mg/dL (0.7-1.2) 09/15/18 05:06 Estimated GFR 45 ml/min 09/15/18 05:06 BUN/Creatinine Ratio 13 % 09/15/18 05:06 Glucose 90 mg/dL (65-100) 09/15/18 05:06 POC Glucose 93 (70-105) 09/12/18 21:13 Calcium 9.5 mg/dL (8.4-10.2) 09/15/18 05:06 Troponin T < 0.010 ng/mL (0.00-0.029) 09/12/18 20:57 Triglycerides 86 mg/dL (2-149) 09/14/18 05:12 Cholesterol 176 mg/dL (50-199) 09/14/18 05:12 LDL Cholesterol Direct 100 mg/dL (50-130) 09/14/18 05:12 HDL Cholesterol 66 mg/dL (40-59) H 09/14/18 05:12 Cholesterol/HDL Ratio 2.66 % 09/14/18 05:12 Active Medications - Current Medications Current Medications: Generic Name Dose Route Start Last Admin Trade Name Freq PRN Reason Stop Dose Admin Aspirin 300 mg 09/13/18 10:00 09/15/18 09:28 Aspirin [place] 300 mg QDAY TAMICA Administration Atorvastatin Calcium 40 mg 09/13/18 23:45 09/14/18 22:23 Lipitor PO 40 mg QHS TAMICA Administration Clopidogrel Bisulfate 75 mg 09/13/18 23:45 09/15/18 09:28 Plavix PO 75 mg QDAY TAMICA Administration Diphenhydramine HCl 25 mg 09/13/18 22:08 09/14/18 22:47 Benadryl IV 25 mg QHS PRN Administration Itching Enoxaparin Sodium 40 mg 09/13/18 10:00 09/15/18 09:28 Lovenox SUB-Q 40 mg QDAY TAMICA Administration Hydralazine HCl 5 mg 09/13/18 06:17 Apresoline IV Q6H PRN Hypertension Ondansetron HCl 4 mg 09/13/18 06:08 Zofran IV Q8H PRN Nausea And Vomiting Pantoprazole Sodium 40 mg 09/15/18 10:00 09/15/18 09:28 Protonix PO 40 mg DAILY TAMICA Administration Sodium Chloride 10 ml 09/13/18 06:08 Sodium Chloride Flush Syringe 10 Ml IV PRN PRN LINE FLUSH Nutrition/Malnutrition Assess - Dietary Evaluation Nutrition/Malnutrition Findings: Nutrition Notes Start: 09/14/18 10:13 Freq: Status: Active Protocol: Document 09/15/18 09:24 CP (Rec: 09/15/18 09:37 CP [email or web address]) Co-Sign 09/15/18 09:24 LP Nutrition Notes Initial or Follow up Brief Note Current Diagnosis Stroke Current Diet Mechanical Soft [place] Body Weight (kg) 0 Subjective/Other Information Pt diet advanced to mechanical soft. Pt reported having a " good" appetite and ate 100% of her breakfast today. Pt has a elza score of 16 but is receiving adequate protein from her breakfast. Nutrition Intervention Revisit per MD consult or patient Sign Off request:
--- NOTE | 2018-09-15 16:33 | Progress Note ---
Subjective Date of service: 09/15/18 Interval history: stroke is stable right facial weakness is improving stroke therapy in progress thanks Objective - Vital Sign Vital Signs - 12hr 09/15/18 09:02 Temperature 98.5 F Pulse Rate 85 Respiratory 16 Rate Blood Pressure 130/77 O2 Sat by Pulse 97 Oximetry - Laboratory Findings CBC and BMP: 09/15/18 05:06 09/15/18 05:06 Abnormal Lab Findings: Abnormal Labs 09/12/18 09/12/18 09/14/18 20:57 20:57 05:12 WBC 11.5 H MCH 27 L [place] % (Auto) 7.6 H [place] # 0.9 H BUN 22 H Glucose 111 H HDL Cholesterol 66 H 09/15/18 05:06 WBC MCH 27 L [place] % (Auto) [place] # BUN Glucose HDL Cholesterol
[2018-09-15] MEDS: BENADRYL IV PRN (22:09)
[2018-09-16] MEDS: ASPIRIN PR SCH (09:37)
[2018-09-16] MEDS: PROTONIX PO SCH (09:37)
[2018-09-16] MEDS: PLAVIX PO SCH (09:37)
[2018-09-16] MEDS: LOVENOX SUB-Q SCH (09:37)
--- NOTE | 2018-09-16 11:31 | Progress Note ---
Assessment and Plan Assessment and plan: Acute ischemic stroke right basal ganglia Cont Aspirin. Plavix Neurology following PT recommends acute rehab PT/OT eval History of previous stroke with residual right sided weakness Hypertension Mionitor BP Full CODE STATUS Medically stable for discharge to Acute Rehab. History Interval history: Still has slurred speech Hospitalist Physical - Physical exam Narrative exam: Gen: Not in acute distress, lying in bed HEENT: Normocephalic, atraumatic Neck: supple, no JVD Heart: S1 and S2 reg, no murmurs, rubs or gallop Lungs: clear, no crackles Abd: soft, non tender, non distended, normal BS Ext: No edema, no clubbing, no cyanosis, Neuro: Awake,alert, dysarthria, right hemiparesis Psych:Normal mood - Constitutional Vitals: Temp Pulse Resp BP Pulse Ox 98.8 F 82 18 131/75 96 09/16/18 07:43 09/16/18 07:43 09/16/18 07:43 09/16/18 07:43 09/16/18 07:43 Results - Labs CBC & Chem 7: 09/15/18 05:06 09/15/18 05:06 Labs: Laboratory Last Values WBC 9.1 K/mm3 (4.5-11.0) 09/15/18 05:06 RBC 4.12 M/mm3 (3.65-5.03) 09/15/18 05:06 Hgb 11.2 gm/dl (10.1-14.3) 09/15/18 05:06 Hct 34.1 % (30.3-42.9) 09/15/18 05:06 MCV 83 fl (79-97) 09/15/18 05:06 MCH 27 pg (28-32) L 09/15/18 05:06 MCHC 33 % (30-34) 09/15/18 05:06 RDW 14.5 % (13.2-15.2) 09/15/18 05:06 Plt Count 314 K/mm3 (140-440) 09/15/18 05:06 Lymph % (Auto) 32.1 % (13.4-35.0) 09/12/18 20:57 [place] % (Auto) 7.6 % (0.0-7.3) H 09/12/18 20:57 Eos % (Auto) 2.2 % (0.0-4.3) 09/12/18 20:57 Baso % (Auto) 1.0 % (0.0-1.8) 09/12/18 20:57 Lymph # 3.7 K/mm3 (1.2-5.4) 09/12/18 20:57 [place] # 0.9 K/mm3 (0.0-0.8) H 09/12/18 20:57 Eos # 0.3 K/mm3 (0.0-0.4) 09/12/18 20:57 Baso # 0.1 K/mm3 (0.0-0.1) 09/12/18 20:57 Seg Neutrophils % 57.1 % (40.0-70.0) 09/12/18 20:57 Seg Neutrophils # 6.5 K/mm3 (1.8-7.7) 09/12/18 20:57 PT 12.9 Sec. (12.2-14.9) 09/12/18 20:57 INR 0.92 (0.87-1.13) 09/12/18 20:57 APTT 32.0 Sec. (24.2-36.6) 09/12/18 20:57 Thrombin Time 16.3 Sec. (15.1-19.6) 09/12/18 20:57 Sodium 140 mmol/L (137-145) 09/15/18 05:06 Potassium 3.8 mmol/L (3.6-5.0) 09/15/18 05:06 Chloride 101.3 mmol/L (98-107) 09/15/18 05:06 Carbon Dioxide 25 mmol/L (22-30) 09/15/18 05:06 Anion Gap 18 mmol/L 09/15/18 05:06 BUN 16 mg/dL (7-17) 09/15/18 05:06 Creatinine 1.2 mg/dL (0.7-1.2) 09/15/18 05:06 Estimated GFR 45 ml/min 09/15/18 05:06 BUN/Creatinine Ratio 13 % 09/15/18 05:06 Glucose 90 mg/dL (65-100) 09/15/18 05:06 POC Glucose 93 (70-105) 09/12/18 21:13 Calcium 9.5 mg/dL (8.4-10.2) 09/15/18 05:06 Troponin T < 0.010 ng/mL (0.00-0.029) 09/12/18 20:57 Triglycerides 86 mg/dL (2-149) 09/14/18 05:12 Cholesterol 176 mg/dL (50-199) 09/14/18 05:12 LDL Cholesterol Direct 100 mg/dL (50-130) 09/14/18 05:12 HDL Cholesterol 66 mg/dL (40-59) H 09/14/18 05:12 Cholesterol/HDL Ratio 2.66 % 09/14/18 05:12 Active Medications - Current Medications Current Medications: Generic Name Dose Route Start Last Admin Trade Name Freq PRN Reason Stop Dose Admin Aspirin 300 mg 09/13/18 10:00 09/16/18 09:37 Aspirin [place] 300 mg QDAY TAMICA Administration Atorvastatin Calcium 40 mg 09/13/18 23:45 09/15/18 21:31 Lipitor PO 40 mg QHS TAMICA Administration Clopidogrel Bisulfate 75 mg 09/13/18 23:45 09/16/18 09:37 Plavix PO 75 mg QDAY TAMICA Administration Diphenhydramine HCl 25 mg 09/13/18 22:08 09/15/18 22:09 Benadryl IV 25 mg QHS PRN Administration Itching Enoxaparin Sodium 40 mg 09/13/18 10:00 09/16/18 09:37 Lovenox SUB-Q 40 mg QDAY TAMICA Administration Hydralazine HCl 5 mg 09/13/18 06:17 Apresoline IV Q6H PRN Hypertension Ondansetron HCl 4 mg 09/13/18 06:08 Zofran IV Q8H PRN Nausea And Vomiting Pantoprazole Sodium 40 mg 09/15/18 10:00 09/16/18 09:37 Protonix PO 40 mg DAILY TAMICA Administration Sodium Chloride 10 ml 09/13/18 06:08 Sodium Chloride Flush Syringe 10 Ml IV PRN PRN LINE FLUSH Nutrition/Malnutrition Assess - Dietary Evaluation Nutrition/Malnutrition Findings: Nutrition Notes Start: 09/14/18 10:13 Freq: Status: Active Protocol: Document 09/15/18 09:24 CP (Rec: 09/15/18 09:37 CP [id number]) Co-Sign 09/15/18 09:24 LP Nutrition Notes Initial or Follow up Brief Note Current Diagnosis Stroke Current Diet Mechanical Soft [place] Body Weight (kg) 0 Subjective/Other Information Pt diet advanced to mechanical soft. Pt reported having a " good" appetite and ate 100% of her breakfast today. Pt has a elza score of 16 but is receiving adequate protein from her breakfast. Nutrition Intervention Revisit per MD consult or patient Sign Off request:
--- NOTE | 2018-09-16 13:48 | Progress Note ---
Subjective Date of service: 09/16/18 Interval history: went over the videofluoroscopi study for the swallow evaluation suspect stroke is cause of this Objective - Vital Sign Vital Signs - 12hr 09/16/18 09/16/18 09/16/18 03:53 04:31 07:43 Temperature 98.6 F 98.3 F 98.8 F Pulse Rate 85 82 Respiratory 15 13 18 Rate Blood Pressure 126/75 121/76 131/75 O2 Sat by Pulse 98 96 Oximetry 09/16/18 09/16/18 10:00 12:11 Temperature 98.5 F Pulse Rate 71 Respiratory 18 12 Rate Blood Pressure 141/77 O2 Sat by Pulse 98 97 Oximetry - Laboratory Findings CBC and BMP: 09/15/18 05:06 09/15/18 05:06 Abnormal Lab Findings: Abnormal Labs 09/12/18 09/12/18 09/14/18 20:57 20:57 05:12 WBC 11.5 H MCH 27 L [place] % (Auto) 7.6 H [place] # 0.9 H BUN 22 H Glucose 111 H HDL Cholesterol 66 H 09/15/18 05:06 WBC MCH 27 L [place] % (Auto) [place] # BUN Glucose HDL Cholesterol
[2018-09-16] MEDS: BENADRYL IV PRN (21:28)
[2018-09-17] MEDS: LOVENOX SUB-Q SCH (09:39)
[2018-09-17] MEDS: PROTONIX PO SCH (09:39)
[2018-09-17] MEDS: ASPIRIN PR SCH (09:39)
[2018-09-17] MEDS: PLAVIX PO SCH (09:39)
--- NOTE | 2018-09-17 13:12 | Progress Note ---
Subjective Date of service: 09/17/18 Interval history: alert and eating her luch very well no vomiting and no dysphagia good control motor function of the right hand.... excellent recovery of swallowing/ eating observed by exam Objective - Vital Sign Vital Signs - 12hr 09/17/18 09/17/18 09/17/18 04:34 07:33 12:18 Temperature 98.4 F 98.4 F 98.6 F Pulse Rate 86 90 86 Respiratory 20 16 18 Rate Blood Pressure 118/71 128/86 125/71 O2 Sat by Pulse 96 97 95 Oximetry - Laboratory Findings CBC and BMP: 09/15/18 05:06 09/15/18 05:06 Abnormal Lab Findings: Abnormal Labs 09/12/18 09/12/18 09/14/18 20:57 20:57 05:12 WBC 11.5 H MCH 27 L [place] % (Auto) 7.6 H [place] # 0.9 H BUN 22 H Glucose 111 H HDL Cholesterol 66 H 09/15/18 05:06 WBC MCH 27 L [place] % (Auto) [place] # BUN Glucose HDL Cholesterol
--- NOTE | 2018-09-17 17:04 | Progress Note ---
Assessment and Plan Assessment and plan: Acute ischemic stroke right basal ganglia Cont Aspirin. Plavix Neurology following PT recommends acute rehab PT/OT eval History of previous stroke with residual right sided weakness Hypertension Mionitor BP Full CODE STATUS Medically stable for discharge to Acute Rehab. Awaiting placement History Interval history: Still has slurred speech Hospitalist Physical - Physical exam Narrative exam: Gen: Not in acute distress, lying in bed HEENT: Normocephalic, atraumatic Neck: supple, no JVD Heart: S1 and S2 reg, no murmurs, rubs or gallop Lungs: clear, no crackles Abd: soft, non tender, non distended, normal BS Ext: No edema, no clubbing, no cyanosis, Neuro: Awake,alert, dysarthria, right hemiparesis Psych:Normal mood - Constitutional Vitals: Temp Pulse Resp BP Pulse Ox 98.6 F 86 18 125/71 95 09/17/18 12:18 09/17/18 12:18 09/17/18 12:18 09/17/18 12:18 09/17/18 12:18 Results - Labs CBC & Chem 7: 09/15/18 05:06 09/15/18 05:06 Labs: Laboratory Last Values WBC 9.1 K/mm3 (4.5-11.0) 09/15/18 05:06 RBC 4.12 M/mm3 (3.65-5.03) 09/15/18 05:06 Hgb 11.2 gm/dl (10.1-14.3) 09/15/18 05:06 Hct 34.1 % (30.3-42.9) 09/15/18 05:06 MCV 83 fl (79-97) 09/15/18 05:06 MCH 27 pg (28-32) L 09/15/18 05:06 MCHC 33 % (30-34) 09/15/18 05:06 RDW 14.5 % (13.2-15.2) 09/15/18 05:06 Plt Count 314 K/mm3 (140-440) 09/15/18 05:06 Lymph % (Auto) 32.1 % (13.4-35.0) 09/12/18 20:57 [place] % (Auto) 7.6 % (0.0-7.3) H 09/12/18 20:57 Eos % (Auto) 2.2 % (0.0-4.3) 09/12/18 20:57 Baso % (Auto) 1.0 % (0.0-1.8) 09/12/18 20:57 Lymph # 3.7 K/mm3 (1.2-5.4) 09/12/18 20:57 [place] # 0.9 K/mm3 (0.0-0.8) H 09/12/18 20:57 Eos # 0.3 K/mm3 (0.0-0.4) 09/12/18 20:57 Baso # 0.1 K/mm3 (0.0-0.1) 09/12/18 20:57 Seg Neutrophils % 57.1 % (40.0-70.0) 09/12/18 20:57 Seg Neutrophils # 6.5 K/mm3 (1.8-7.7) 09/12/18 20:57 PT 12.9 Sec. (12.2-14.9) 09/12/18 20:57 INR 0.92 (0.87-1.13) 09/12/18 20:57 APTT 32.0 Sec. (24.2-36.6) 09/12/18 20:57 Thrombin Time 16.3 Sec. (15.1-19.6) 09/12/18 20:57 Sodium 140 mmol/L (137-145) 09/15/18 05:06 Potassium 3.8 mmol/L (3.6-5.0) 09/15/18 05:06 Chloride 101.3 mmol/L (98-107) 09/15/18 05:06 Carbon Dioxide 25 mmol/L (22-30) 09/15/18 05:06 Anion Gap 18 mmol/L 09/15/18 05:06 BUN 16 mg/dL (7-17) 09/15/18 05:06 Creatinine 1.2 mg/dL (0.7-1.2) 09/15/18 05:06 Estimated GFR 45 ml/min 09/15/18 05:06 BUN/Creatinine Ratio 13 % 09/15/18 05:06 Glucose 90 mg/dL (65-100) 09/15/18 05:06 POC Glucose 93 (70-105) 09/12/18 21:13 Calcium 9.5 mg/dL (8.4-10.2) 09/15/18 05:06 Troponin T < 0.010 ng/mL (0.00-0.029) 09/12/18 20:57 Triglycerides 86 mg/dL (2-149) 09/14/18 05:12 Cholesterol 176 mg/dL (50-199) 09/14/18 05:12 LDL Cholesterol Direct 100 mg/dL (50-130) 09/14/18 05:12 HDL Cholesterol 66 mg/dL (40-59) H 09/14/18 05:12 Cholesterol/HDL Ratio 2.66 % 09/14/18 05:12 Active Medications - Current Medications Current Medications: Generic Name Dose Route Start Last Admin Trade Name Freq PRN Reason Stop Dose Admin Aspirin 300 mg 09/13/18 10:00 09/17/18 09:39 Aspirin [place] 300 mg QDAY TAMICA Administration Atorvastatin Calcium 40 mg 09/13/18 23:45 09/16/18 21:22 Lipitor PO 40 mg QHS TAMICA Administration Clopidogrel Bisulfate 75 mg 09/13/18 23:45 09/17/18 09:39 Plavix PO 75 mg QDAY TAMICA Administration Diphenhydramine HCl 25 mg 09/13/18 22:08 09/16/18 21:28 Benadryl IV 25 mg QHS PRN Administration Itching Enoxaparin Sodium 40 mg 09/13/18 10:00 09/17/18 09:39 Lovenox SUB-Q 40 mg QDAY TAMICA Administration Hydralazine HCl 5 mg 09/13/18 06:17 Apresoline IV Q6H PRN Hypertension Ondansetron HCl 4 mg 09/13/18 06:08 Zofran IV Q8H PRN Nausea And Vomiting Pantoprazole Sodium 40 mg 09/15/18 10:00 09/17/18 09:39 Protonix PO 40 mg DAILY TAMICA Administration Sodium Chloride 10 ml 09/13/18 06:08 Sodium Chloride Flush Syringe 10 Ml IV PRN PRN LINE FLUSH Nutrition/Malnutrition Assess - Dietary Evaluation Nutrition/Malnutrition Findings: Nutrition Notes Start: 09/14/18 10:13 Freq: Status: Active Protocol: Document 09/15/18 09:24 CP (Rec: 09/15/18 09:37 CP [id number]) Co-Sign 09/15/18 09:24 LP Nutrition Notes Initial or Follow up Brief Note Current Diagnosis Stroke Current Diet Mechanical Soft [place] Body Weight (kg) 0 Subjective/Other Information Pt diet advanced to mechanical soft. Pt reported having a " good" appetite and ate 100% of her breakfast today. Pt has a elza score of 16 but is receiving adequate protein from her breakfast. Nutrition Intervention Revisit per MD consult or patient Sign Off request:
[2018-09-17] MEDS: BENADRYL IV PRN (22:14)
[2018-09-18] MEDS: LOVENOX SUB-Q SCH (09:41)
[2018-09-18] MEDS: PROTONIX PO SCH (09:41)
[2018-09-18] MEDS: PLAVIX PO SCH (09:41)
[2018-09-18] MEDS: ASPIRIN PR SCH (09:42)
--- NOTE | 2018-09-18 16:50 | Progress Note ---
Assessment and Plan Assessment and plan: Acute ischemic stroke right basal ganglia Cont Aspirin. Plavix Neurology following PT recommends acute rehab PT/OT eval History of previous stroke with residual right sided weakness Hypertension Mionitor BP Full CODE STATUS Medically stable for discharge to Acute Rehab. Awaiting placement History Interval history: Still has slurred speech Hospitalist Physical - Physical exam Narrative exam: Gen: Not in acute distress, lying in bed HEENT: Normocephalic, atraumatic Neck: supple, no JVD Heart: S1 and S2 reg, no murmurs, rubs or gallop Lungs: clear, no crackles Abd: soft, non tender, non distended, normal BS Ext: No edema, no clubbing, no cyanosis, Neuro: Awake,alert, dysarthria, right hemiparesis Psych:Normal mood - Constitutional Vitals: Temp Pulse Resp BP Pulse Ox 98.5 F 81 18 122/75 97 09/18/18 16:16 09/18/18 16:16 09/18/18 16:16 09/18/18 16:16 09/18/18 16:16 Results - Labs CBC & Chem 7: 09/15/18 05:06 09/15/18 05:06 Labs: Laboratory Last Values WBC 9.1 K/mm3 (4.5-11.0) 09/15/18 05:06 RBC 4.12 M/mm3 (3.65-5.03) 09/15/18 05:06 Hgb 11.2 gm/dl (10.1-14.3) 09/15/18 05:06 Hct 34.1 % (30.3-42.9) 09/15/18 05:06 MCV 83 fl (79-97) 09/15/18 05:06 MCH 27 pg (28-32) L 09/15/18 05:06 MCHC 33 % (30-34) 09/15/18 05:06 RDW 14.5 % (13.2-15.2) 09/15/18 05:06 Plt Count 314 K/mm3 (140-440) 09/15/18 05:06 Lymph % (Auto) 32.1 % (13.4-35.0) 09/12/18 20:57 [place] % (Auto) 7.6 % (0.0-7.3) H 09/12/18 20:57 Eos % (Auto) 2.2 % (0.0-4.3) 09/12/18 20:57 Baso % (Auto) 1.0 % (0.0-1.8) 09/12/18 20:57 Lymph # 3.7 K/mm3 (1.2-5.4) 09/12/18 20:57 [place] # 0.9 K/mm3 (0.0-0.8) H 09/12/18 20:57 Eos # 0.3 K/mm3 (0.0-0.4) 09/12/18 20:57 Baso # 0.1 K/mm3 (0.0-0.1) 09/12/18 20:57 Seg Neutrophils % 57.1 % (40.0-70.0) 09/12/18 20:57 Seg Neutrophils # 6.5 K/mm3 (1.8-7.7) 09/12/18 20:57 PT 12.9 Sec. (12.2-14.9) 09/12/18 20:57 INR 0.92 (0.87-1.13) 09/12/18 20:57 APTT 32.0 Sec. (24.2-36.6) 09/12/18 20:57 Thrombin Time 16.3 Sec. (15.1-19.6) 09/12/18 20:57 Sodium 140 mmol/L (137-145) 09/15/18 05:06 Potassium 3.8 mmol/L (3.6-5.0) 09/15/18 05:06 Chloride 101.3 mmol/L (98-107) 09/15/18 05:06 Carbon Dioxide 25 mmol/L (22-30) 09/15/18 05:06 Anion Gap 18 mmol/L 09/15/18 05:06 BUN 16 mg/dL (7-17) 09/15/18 05:06 Creatinine 1.2 mg/dL (0.7-1.2) 09/15/18 05:06 Estimated GFR 45 ml/min 09/15/18 05:06 BUN/Creatinine Ratio 13 % 09/15/18 05:06 Glucose 90 mg/dL (65-100) 09/15/18 05:06 POC Glucose 93 (70-105) 09/12/18 21:13 Calcium 9.5 mg/dL (8.4-10.2) 09/15/18 05:06 Troponin T < 0.010 ng/mL (0.00-0.029) 09/12/18 20:57 Triglycerides 86 mg/dL (2-149) 09/14/18 05:12 Cholesterol 176 mg/dL (50-199) 09/14/18 05:12 LDL Cholesterol Direct 100 mg/dL (50-130) 09/14/18 05:12 HDL Cholesterol 66 mg/dL (40-59) H 09/14/18 05:12 Cholesterol/HDL Ratio 2.66 % 09/14/18 05:12 Active Medications - Current Medications Current Medications: Generic Name Dose Route Start Last Admin Trade Name Freq PRN Reason Stop Dose Admin Aspirin 300 mg 09/13/18 10:00 09/18/18 09:42 Aspirin [place] 300 mg QDAY TAMICA Administration Atorvastatin Calcium 40 mg 09/13/18 23:45 09/17/18 21:19 Lipitor PO 40 mg QHS TAMICA Administration Clopidogrel Bisulfate 75 mg 09/13/18 23:45 09/18/18 09:41 Plavix PO 75 mg QDAY TAMICA Administration Diphenhydramine HCl 25 mg 09/13/18 22:08 09/17/18 22:14 Benadryl IV 25 mg QHS PRN Administration Itching Enoxaparin Sodium 40 mg 09/13/18 10:00 09/18/18 09:41 Lovenox SUB-Q 40 mg QDAY TAMICA Administration Hydralazine HCl 5 mg 09/13/18 06:17 Apresoline IV Q6H PRN Hypertension Ondansetron HCl 4 mg 09/13/18 06:08 Zofran IV Q8H PRN Nausea And Vomiting Pantoprazole Sodium 40 mg 09/15/18 10:00 09/18/18 09:41 Protonix PO 40 mg DAILY TAMICA Administration Sodium Chloride 10 ml 09/13/18 06:08 Sodium Chloride Flush Syringe 10 Ml IV PRN PRN LINE FLUSH Nutrition/Malnutrition Assess - Dietary Evaluation Nutrition/Malnutrition Findings: Nutrition Notes Start: 09/14/18 10:13 Freq: Status: Active Protocol: Document 09/15/18 09:24 CP (Rec: 09/15/18 09:37 CP [id number]) Co-Sign 09/15/18 09:24 LP Nutrition Notes Initial or Follow up Brief Note Current Diagnosis Stroke Current Diet Mechanical Soft [place] Body Weight (kg) 0 Subjective/Other Information Pt diet advanced to mechanical soft. Pt reported having a " good" appetite and ate 100% of her breakfast today. Pt has a elza score of 16 but is receiving adequate protein from her breakfast. Nutrition Intervention Revisit per MD consult or patient Sign Off request:
[2018-09-18] MEDS: BENADRYL IV PRN (22:15)
[2018-09-19] MEDS: LOVENOX SUB-Q SCH (10:52)
[2018-09-19] MEDS: PLAVIX PO SCH (10:53)
[2018-09-19] MEDS: PROTONIX PO SCH (10:53)
[2018-09-19] MEDS: ASPIRIN PR SCH (10:59)
[2018-09-19] MEDS: ASPIRIN PO SCH (10:59)
--- NOTE | 2018-09-19 13:22 | Progress Note ---
Assessment and Plan Assessment and plan: Patient is 68-year-old with a history of hypertension, CVA with residual right- sided weakness was brought to emergency room with complaints of worsening right- sided weakness, difficulty swallowing and difficulty speaking. She was seen and evaluated in ED. CT head was neg for new stroke but MRI confirmed acute right basal ganglia stroke . She was evaluated by Neurology. she is now on Aspirin, Plvix, Lipitor. PT recommends acute rhab . She is meduoically stable awaiting acute rehab placement. Acute ischemic stroke right basal ganglia Cont Aspirin. Plavix Neurology following PT recommends acute rehab PT/OT eval History of previous stroke with residual right sided weakness Hypertension Mionitor BP Full CODE STATUS Medically stable for discharge to Acute Rehab. Awaiting placement History Interval history: Still has slurred speech right sided weakness Hospitalist Physical - Physical exam Narrative exam: Gen: Not in acute distress, lying in bed HEENT: Normocephalic, atraumatic Neck: supple, no JVD Heart: S1 and S2 reg, no murmurs, rubs or gallop Lungs: clear, no crackles Abd: soft, non tender, non distended, normal BS Ext: No edema, no clubbing, no cyanosis, Neuro: Awake,alert, dysarthria, right hemiparesis Psych:Normal mood - Constitutional Vitals: Temp Pulse Resp BP Pulse Ox 98.4 F 79 16 138/73 98 09/19/18 13:10 09/19/18 13:10 09/19/18 13:10 09/19/18 13:10 09/19/18 13:10 Results - Labs CBC & Chem 7: 09/15/18 05:06 09/15/18 05:06 Labs: Laboratory Last Values WBC 9.1 K/mm3 (4.5-11.0) 09/15/18 05:06 RBC 4.12 M/mm3 (3.65-5.03) 09/15/18 05:06 Hgb 11.2 gm/dl (10.1-14.3) 09/15/18 05:06 Hct 34.1 % (30.3-42.9) 09/15/18 05:06 MCV 83 fl (79-97) 09/15/18 05:06 MCH 27 pg (28-32) L 09/15/18 05:06 MCHC 33 % (30-34) 09/15/18 05:06 RDW 14.5 % (13.2-15.2) 09/15/18 05:06 Plt Count 314 K/mm3 (140-440) 09/15/18 05:06 Lymph % (Auto) 32.1 % (13.4-35.0) 09/12/18 20:57 [place] % (Auto) 7.6 % (0.0-7.3) H 09/12/18 20:57 Eos % (Auto) 2.2 % (0.0-4.3) 09/12/18 20:57 Baso % (Auto) 1.0 % (0.0-1.8) 09/12/18 20:57 Lymph # 3.7 K/mm3 (1.2-5.4) 09/12/18 20:57 [place] # 0.9 K/mm3 (0.0-0.8) H 09/12/18 20:57 Eos # 0.3 K/mm3 (0.0-0.4) 09/12/18 20:57 Baso # 0.1 K/mm3 (0.0-0.1) 09/12/18 20:57 Seg Neutrophils % 57.1 % (40.0-70.0) 09/12/18 20:57 Seg Neutrophils # 6.5 K/mm3 (1.8-7.7) 09/12/18 20:57 PT 12.9 Sec. (12.2-14.9) 09/12/18 20:57 INR 0.92 (0.87-1.13) 09/12/18 20:57 APTT 32.0 Sec. (24.2-36.6) 09/12/18 20:57 Thrombin Time 16.3 Sec. (15.1-19.6) 09/12/18 20:57 Sodium 140 mmol/L (137-145) 09/15/18 05:06 Potassium 3.8 mmol/L (3.6-5.0) 09/15/18 05:06 Chloride 101.3 mmol/L (98-107) 09/15/18 05:06 Carbon Dioxide 25 mmol/L (22-30) 09/15/18 05:06 Anion Gap 18 mmol/L 09/15/18 05:06 BUN 16 mg/dL (7-17) 09/15/18 05:06 Creatinine 1.2 mg/dL (0.7-1.2) 09/15/18 05:06 Estimated GFR 45 ml/min 09/15/18 05:06 BUN/Creatinine Ratio 13 % 09/15/18 05:06 Glucose 90 mg/dL (65-100) 09/15/18 05:06 POC Glucose 93 (70-105) 09/12/18 21:13 Calcium 9.5 mg/dL (8.4-10.2) 09/15/18 05:06 Troponin T < 0.010 ng/mL (0.00-0.029) 09/12/18 20:57 Triglycerides 86 mg/dL (2-149) 09/14/18 05:12 Cholesterol 176 mg/dL (50-199) 09/14/18 05:12 LDL Cholesterol Direct 100 mg/dL (50-130) 09/14/18 05:12 HDL Cholesterol 66 mg/dL (40-59) H 09/14/18 05:12 Cholesterol/HDL Ratio 2.66 % 09/14/18 05:12 Active Medications - Current Medications Current Medications: Generic Name Dose Route Start Last Admin Trade Name Freq PRN Reason Stop Dose Admin Aspirin 325 mg 09/19/18 11:00 09/19/18 10:59 Aspirin PO 325 mg QDAY TAMICA Administration Atorvastatin Calcium 40 mg 09/13/18 23:45 09/18/18 22:11 Lipitor PO 40 mg QHS TAMICA Administration Clopidogrel Bisulfate 75 mg 09/13/18 23:45 09/19/18 10:53 Plavix PO 75 mg QDAY TAMICA Administration Diphenhydramine HCl 25 mg 09/13/18 22:08 09/18/18 22:15 Benadryl IV 25 mg QHS PRN Administration Itching Enoxaparin Sodium 40 mg 09/13/18 10:00 09/19/18 10:52 Lovenox SUB-Q 40 mg QDAY TAMICA Administration Hydralazine HCl 5 mg 09/13/18 06:17 Apresoline IV Q6H PRN Hypertension Ondansetron HCl 4 mg 09/13/18 06:08 Zofran IV Q8H PRN Nausea And Vomiting Pantoprazole Sodium 40 mg 09/15/18 10:00 09/19/18 10:53 Protonix PO 40 mg DAILY TAMICA Administration Sodium Chloride 10 ml 09/13/18 06:08 09/18/18 22:17 Sodium Chloride Flush Syringe 10 Ml IV 10 ml PRN PRN Administration LINE FLUSH Nutrition/Malnutrition Assess - Dietary Evaluation Nutrition/Malnutrition Findings: Nutrition Notes Start: 09/14/18 10:13 Freq: Status: Active Protocol: Document 09/15/18 09:24 CP (Rec: 09/15/18 09:37 CP [id number]) Co-Sign 09/15/18 09:24 LP Nutrition Notes Initial or Follow up Brief Note Current Diagnosis Stroke Current Diet Mechanical Soft [place] Body Weight (kg) 0 Subjective/Other Information Pt diet advanced to mechanical soft. Pt reported having a " good" appetite and ate 100% of her breakfast today. Pt has a elza score of 16 but is receiving adequate protein from her breakfast. Nutrition Intervention Revisit per MD consult or patient Sign Off request:
[2018-09-19] MEDS: BENADRYL IV PRN (21:06)
[2018-09-20 06:22] LABS: Hematocrit 31.2 % (30.3-42.9); Hemoglobin 10.2 gm/dl (10.1-14.3); Mean Corpuscular HGB Conc 33 % (30-34); Mean Corpuscular Volume 84 fl (79-97); Platelet Count 292 K/mm3 (140-440); Red Blood Count 3.72 M/mm3 (3.65-5.03); Red Cell Distribution Width 14.4 % (13.2-15.2)
[2018-09-20 06:44] LABS: Calcium 8.7 mg/dL (8.4-10.2)
[2018-09-20 08:01] VITALS: BP 134/75
--- NOTE | 2018-09-20 08:50 | Discharge Summary ---
Providers - Providers Date of Admission: 09/13/18 03:39 Date of discharge: 09/20/18 Attending physician: HARDY PADILLA 09/12/18 21:34 Speech Therapy Evaluation and Treat [CONS] Stat Reason For Exam: swollen screen fail 09/13/18 06:08 Occupational Therapy Evaluate and Treat [CONS] Routine Comment: Reason For Exam: Neuro deficits Physical Therapy Evaluation and Treat [CONS] Routine Comment: Reason For Exam: Neuro deficits 09/14/18 11:21 Consult to Physician [CONS] Routine Comment: Consulting Provider: OBDULIA PEREA Physician Instructions: Reason For Exam: Stroke Primary care physician: CARLOS THRASHER Hospitalization Reason for admission: worsening Rt sided weakness Condition: Fair Pertinent studies: CT head CTA head CTA neck MRA brain MRI brain Echocardiogram Modified barium swallow Hospital course: Patient is 68-year-old with a history of hypertension, CVA with residual right- sided weakness was brought to emergency room with complaints of worsening right- sided weakness, difficulty swallowing and difficulty speaking. She was seen and evaluated in ED. CT head was neg for new stroke but MRI confirmed acute right basal ganglia stroke . She was evaluated by Neurology. she is now on Aspirin, Plvix, Lipitor. PT recommends acute rhab . She is meduoically stable awaiting acute rehab placement. Discharge diagnosis; Acute ischemic stroke right basal ganglia Cont Aspirin. Plavix Neurology following PT recommends acute rehab PT/OT eval History of previous stroke with residual right sided weakness Hypertension Mionitor BP Disposition: [id number] Time spent for discharge: 32 min Core Measure Documentation - Palliative Care Palliative Care/ Comfort Measures: Not Applicable - Core Measures Any of the following diagnoses?: stroke - Stroke Discharge Requirements Statin for LDL = or >70 mg/dl on DC: Yes Anticoag for atrial fib/atrial flutter: Not Applicable (no A. fib no A. flutter) Antithrombotic for ischemic stroke: Yes Exam - Constitutional Vitals: Temp Pulse Resp BP Pulse Ox 98.2 F 76 18 134/75 97 09/20/18 08:00 09/20/18 08:00 09/20/18 08:00 09/20/18 08:00 09/20/18 08:00 General appearance: Present: no acute distress, well-nourished - EENT Eyes: Present: PERRL, EOM intact - Neck Neck: Present: supple, normal ROM - Respiratory Respiratory effort: normal Respiratory: bilateral: diminished, negative: rales, rhonchi, wheezing - Cardiovascular Rhythm: regular Heart Sounds: Present: S1 & S2 - Extremities Extremities: no ischemia, No edema - Abdominal General gastrointestinal: Present: soft, non-tender, non-distended, normal bowel sounds - Integumentary Integumentary: Present: clear, warm - Musculoskeletal Musculoskeletal: generalized weakness - Psychiatric Psychiatric: cooperative - Neurologic Neurologic: other (residual weakness) Plan Activity: advance as tolerated, fall precautions Diet: other (mechanical soft diet and advance as tolerated) Special Instructions: smoking cessation, physical therapy, occupational therapy Additional Instructions: Transfer to acute rehabilitation today Follow up with: MAYITO PATTERSON MD [Referring] - 3-5 Days CARLOS THRASHER MD [Primary Care Provider] - 3-5 Days
[2018-09-20] MEDS: LOVENOX SUB-Q SCH (09:29)
[2018-09-20] MEDS: ASPIRIN PO SCH (09:30)
[2018-09-20] MEDS: PROTONIX PO SCH (09:30)
[2018-09-20] MEDS: PLAVIX PO SCH (09:30)
== END 2018-09-20 10:58 | DRG 65 ==
LOC: ED 20:43 → 4A 09-13 03:39
PROVIDERS: ADMIT Internal Medicine; ATTEND Internal Medicine
DX: I63.9 Cerebral infarction, unspecified (principal); I69.351 Hemiplegia and hemiparesis following cerebral infarction affecting right dominant side; R29.706 NIHSS score 6; I12.9 Hypertensive chronic kidney disease with stage 1 through stage 4 chronic kidney disease, or unspecified chronic kidney disease; N18.1 Chronic kidney disease, stage 1; F17.200 Nicotine dependence, unspecified, uncomplicated; E78.00 Pure hypercholesterolemia, unspecified; R40.2361 Coma scale, best motor response, obeys commands, in the field [EMT or ambulance]; R40.2141 Coma scale, eyes open, spontaneous, in the field [EMT or ambulance]; R40.2251 Coma scale, best verbal response, oriented, in the field [EMT or ambulance]; R40.2412 Glasgow coma scale score 13-15, at arrival to emergency department; Z82.49 Family history of ischemic heart disease and other diseases of the circulatory system; Z88.0 Allergy status to penicillin; Z79.51 Long term (current) use of inhaled steroids; Z79.899 Other long term (current) drug therapy; Z79.01 Long term (current) use of anticoagulants
CPT/HCPCS: 36415; 70450; 70496; 70498; 70544; 70551; 71045; 74230; 80048; 80061; 82962; 84484; 85025; 85027; 85610; 85670; 85730; 93005; 93010; 93308; 93321; 93325; 96372; G0378; A9270-GY; C9113; J1200; J1650; Q9967

== ENCOUNTER 2018-09-19 17:04 | Inpatient (IN) | payer MEDICARE ==
[2018-09-20] MEDS ORDERED: DULCOLAX PR PRN (11:52)
[2018-09-20] MEDS ORDERED: ZOFRAN IV PRN (11:52)
[2018-09-20] MEDS ORDERED: APRESOLINE PO PRN (11:52)
[2018-09-20] MEDS ORDERED: MIRALAX 3350 PO PRN (11:52)
--- NOTE | 2018-09-20 17:03 | History and Physical Report ---
History of Present Illness Date: 09/20/18 Date of admission: 09/20/18 12:43 Chief Complaint: CVA History of present illness: 68 yo female with a recent prior history of CVA report to the ER with right- sided weakness and worsening slurred speech. Last CVA was diagnosed in May 2018. She was worked up for CVA and her brain MRI showed an acute right basal ganglia infarct. She also had chronic lacunar infarcts in the thalami and alvino and a large chronic right cerebellum infarct. She was assessed by Speech therapy due to difficulty swallowing and was noted to have oral phase dysphagia. After she was medically cleared she was transferred for further rehab. All available notes, labs and studies from recent hospitalization were reviewed. Past History Past Medical History: hypertension, stroke Past Surgical History: No surgical history Social history: single, lives with family, smoking, full code. denies: alcohol abuse, prescription drug abuse Family history: cancer, diabetes, hypertension, stroke Medications and Allergies Allergies Allergy/AdvReac Type Severity Reaction Status Date / Time Penicillins Allergy Hives Verified 06/06/18 09:04 Home Medications Medication Instructions Recorded Confirmed Last Taken Type Aspirin [Adult Low Dose Aspirin EC] 81 mg PO DAILY #30 tablet. 06/10/18 09/20/18 09/20/18 Rx AtorvaSTATin [Lipitor] 40 mg PO QHS tablet 06/10/18 09/20/18 09/20/18 Rx Clopidogrel [Plavix] 75 mg PO QDAY #30 tablet 06/10/18 09/20/18 09/20/18 Rx Losartan/Hydrochlorothiazide 1 each PO DAILY #30 tablet 06/10/18 09/20/18 09/20/18 Rx [Losartan-Hctz 100-25 mg Tab] traZODone [Desyrel] 100 mg PO QHS tablet 06/10/18 09/20/18 09/20/18 Rx Enoxaparin [Lovenox] 40 mg SUB-Q QDAY syringe 09/20/18 09/20/18 09/20/18 Rx Pantoprazole [Protonix TAB] 40 mg PO DAILY tablet 09/20/18 09/20/18 09/20/18 Rx Active Meds: Active Medications Aspirin (Ecotrin) 325 mg PO QDAY TAMICA Atorvastatin Calcium (Lipitor) 40 mg PO QHS TAMICA Bisacodyl (Dulcolax) 10 mg LA QDAY PRN PRN Reason: Constipation Enoxaparin Sodium (Lovenox) 40 mg SUB-Q QDAY TAMICA Hydralazine HCl (Apresoline) 10 mg PO Q6H PRN PRN Reason: Hypertension Ondansetron HCl (Zofran) 4 mg IV Q8H PRN PRN Reason: Nausea And Vomiting Pantoprazole Sodium (Protonix) 40 mg PO QDAY TAMICA Polyethylene Glycol (Miralax 3350) 17 gm PO QDAY PRN PRN Reason: Constipation Review of Systems All systems: negative (12 systems reviewed and negative except as noted) Constitutional: no fever Eyes: bilateral: decreased vision (Glaucoma) Ears, nose, mouth and throat: no decreased hearing Cardiovascular: high blood pressure, no chest pain, no lightheadedness, no shortness of breath Respiratory: no cough Gastrointestinal: no nausea, no vomiting, no diarrhea, no constipation Integumentary: no rash Neurological: lack of coordination, change in speech, gait dysfunction, spasticity Allergic/Immunologic: no persistent infections Exam - Exam Narrative exam: MUSCULOSKELETAL SPECIALTY EXAM CONSTITUTIONAL: Well developed, well nourished, appropriately groomed. RIGHT hand dominant. LYMPHATIC: No appreciable abnormalities palpable in neck RESPIRATORY: Clear to auscultation bilaterally, no increased work of breathing CARDIOVASCULAR: Regular Rate/ Rhythm, no swelling, edema or tenderness in BUE or BLE. Pulses palpable in all extremities. All extremities warm. GI: + bowel sounds, soft, NTTP, nondistended. INTEGUMENTARY: Normal, no lesion, rash, masses or bruising noted in extremities. MUSCULOSKELETAL: BUE and BLE normal without defect, crepitus, subluxation, effusion, arthritic changes or TTP. SA EF WE EE FF FA HF KE ADF EHL APF R 07/26/ 3/ 3/ 3/ 3/ 3/ 3/ 3/09 23/ 3/5 L / 5/5 5/5 5/5 5/5 5/5 5/ 5/ 5/ 5/5 5/5 ROM decreased on RUE and RLE Tone increased on right NEURO: CN II : Visual crane full to confrontation CN II, III : PERRL CN III, IV, : EOMI CN V : Facial sensation intact CN VII : Symmetric facial expressions and eye closure CN VIII : Hearing intact to finger rustle CN IX, X : Palate/uvula elevate midline, phonation slightly decreased at times CN XI : Intact shoulder shrug and head rotation CN XII : Tongue protrudes midline Sensation intact in all extremities with extinction on LE. Reflexes 3+ bilaterally at biceps, brachioradialis and 2+ at patella. No clonus at ankles. Coordination deficit on right. No tremor noted in 4 extremities. Naming and repetition intact. Follows 2 step commands. Aphasia not appreciated Dysarthria noted Dysphagia oral phase Neglect not appreciated POSTURE and GAIT: Sitting posture ok. Balance appears reasonable. Gait deferred until seen with therapy. PSYCH: Alert, orientated x3, affect appears euthymic. Insight appears intact. - Labs CBC & Chem 7: 09/21/18 04:44 09/21/18 04:44 Assessment and Plan Assessment and plan: Patient was assessed and evaluated for Acute Inpatient Rehab Unit. Due to the patients above-mentioned medical complexity, along with decreased functional mobility and self care, this patient continues to require and be appropriate for a comprehensive, multidisciplinary [id number] rehabilitation program. These needs cannot be met in an outpatient or other less intensive setting. The patient would continue to benefit from skilled therapy intervention for at least 3 hours per day, five days a week, with techniques specific to the needs of the patient to improve function, activities of daily living, and reintegration into the community. The patient continues to require: -- OT to improve ROM, self-care, and learn use of adaptive equipment -- PT to improve strength and balance, functional transfers, and ambulation with energy conservation techniques to improve functional mobility -- DECISION SUPPORT MANAGER to address cognitive deficits and swallowing ability -- 24 hour RN to ensure and prevent skin breakdown, promote progressive independence while ensuring safety, ensure education regarding medications, and incorporation of the rehabilitation at the bedside -- 24 hour Marine Engine Machinist to coordinate this interdisciplinary program, and to manage/prevent complications as a result of the patients medical comorbidities. -Plan of care by day 4 -Weekly team conferences With such a program, there is a reasonable certainty that the goals individualized for this patient can be achieved within the specified length of stay. - I69.351 Right dominant hemiplegia and hemiparesis after CVA: continue secondary stroke prevention and neuromotor therapy as above. Monitor for post stroke depression, shoulder hand syndrome, and neurologic decline. - I69.391 Dysphagia: Continue current diet. DECISION SUPPORT MANAGER to monitor and advance diet as able, and perform FEES, MBSS or EStim as needed. - I69.322 Dysarthria: Continue DECISION SUPPORT MANAGER to improve ability to speak clearly by strengthening and improving control of muscles, improving breath support and slowing rate of speech. - I10 Hypertension: Continue medications and monitor. Adjust as needed. - Z73.6 ADL dysfunction: OT will work on improving ability to perform ADLs (including assistive devices) to increase independence and decrease caregiver burden and improve functional transfers and mobility training. - R26.2 Difficulty walking: PT will work on gait training and proper use of assistive devices and advance as appropriate to use of stairs and outside ambulation on uneven surfaces. - R26.81 Unsteadiness on feet: PT will work on improving static and dynamic sitting and standing balance as well as proper use of assistive devices to decrease risk of falls. - R26.89 Abnormality of gait: PT will work to improve safety and efficiency of gait through neuromotor training and gait training along with instruction on proper use of assistive devices. - M62.81 Muscle weakness: PT & OT will work on strengthening exercises to improve functional strength including mixture of closed and open kinetic chain exercises. - R53.81 Debility: PT & OT will work on improving overall functional status to improve participation with ADLs, mobility and social involvement. - R53.83 Fatigue: PT & OT will work on improving endurance through aerobic exercises and therapeutic activity while monitoring patients tolerance for activity and vital signs as needed. - G47.00 Insomnia: Trazodone, monitor DVT ppx:Lovenox Pain: Continue physical modalities in therapy and pain medications as needed to achieve functional pain control. Sleep: Monitor and address as needed. Trazodone ordered Bowel: Monitor and address as needed. Appetite: Monitor and address as needed. Discharge planning: Pending therapy progress and care plan meeting. Will continue discussion with therapy team, SW, patient and family. Restrictions/ Precautions: Falls, dysphagia WB status: FWB Functional Hx: ADLs: Independent Cognition: Independent Mobility: RW Barriers to Discharge: Decreased mobility and ability to perform self care, balance deficits, weakness, dysphagia, dysarthria, increased tone Estimated Length of Stay: 14-21 days Discharge Destination: Home with family POST ADMISSION PHYSICIAN EVALUATION I have examined the patient and find that functional status, medical condition and appropriateness for IRF admission are essentially unchanged from those described in the preadmission screening. Will monitor for worsening s/s of CVA, SHS, PSD, worsening spasticity and dysphagia, DVT/PE, bowel and bladder complications and complications due to hypertension and electrolyte abnormalities. Will attempt to avoid occurrence of these issues or treat them if they present themselves.
[2018-09-20] MEDS ORDERED: DESYREL PO SCH (22:15)
[2018-09-21 05:07] LABS: Basophils # (Auto) 0.1 K/mm3 (0.0-0.1); Basophils % (Auto) 0.9 % (0.0-1.8); Eosinophils # (Auto) 0.3 K/mm3 (0.0-0.4); Eosinophils % (Auto) 3.8 % (0.0-4.3); Hematocrit 30.5 % (30.3-42.9); Lymphocytes # (Auto) 2.7 K/mm3 (1.2-5.4); Lymphocytes % (Auto) 33.4 % (13.4-35.0); Mean Corpuscular HGB Conc 33 % (30-34); Mean Corpuscular Volume 83 fl (79-97); Monocytes # (Auto) 0.6 K/mm3 (0.0-0.8); Monocytes % (Auto) 7.5 % (0.0-7.3); Platelet Count 296 K/mm3 (140-440); Red Blood Count 3.68 M/mm3 (3.65-5.03); Red Cell Distribution Width 14.2 % (13.2-15.2)
[2018-09-21 05:26] LABS: Albumin 3.6 g/dL (3.9-5); Calcium 8.7 mg/dL (8.4-10.2)
[2018-09-21] MEDS: ECOTRIN PO SCH (09:40)
[2018-09-21] MEDS: LOVENOX SUB-Q SCH (09:40)
[2018-09-21] MEDS: PROTONIX PO SCH (09:40)
[2018-09-21] MEDS: DESYREL PO PRN (22:44)
[2018-09-22] MEDS: ECOTRIN PO SCH (07:45)
[2018-09-22] MEDS: LOVENOX SUB-Q SCH (07:45)
[2018-09-22] MEDS: PROTONIX PO SCH (07:47)
--- NOTE | 2018-09-22 10:43 | Fluoroscopy Report ---
Modified barium swallow with video fluoroscopy: History: Dysphagia. Findings: No anatomic obstruction to the flow of liquid thin barium and semisolid through the cervical esophagus. Minimal penetration without coughing with liquids identified. Additional information will be provided by speech therapist. Impression: Findings as detailed above.
--- NOTE | 2018-09-22 11:14 | Progress Note ---
Subjective Date of service: 09/22/18 Principal diagnosis: CVA Interval history: 68 yo female with a recent prior history of CVA report to the ER with right- sided weakness and worsening slurred speech. Last CVA was diagnosed in May 2018. She was worked up for CVA and her brain MRI showed an acute right basal ganglia infarct. She also had chronic lacunar infarcts in the thalami and alvino and a large chronic right cerebellum infarct. She was assessed by Speech therapy due to difficulty swallowing and was noted to have oral phase dysphagia. After she was medically cleared she was transferred for further rehab. Patient is participating in therapy and making fair progress. Denies pain, c hest pain, dyspnea, N/V. +BM. Discussed secondary stroke prevention. Labs, vitals and records reviewed. No other issues per nursing or therapy. Continue therapy. Objective - Exam Narrative Exam: MUSCULOSKELETAL SPECIALTY EXAM CONSTITUTIONAL: Well developed, well nourished, appropriately groomed. RIGHT hand dominant. RESPIRATORY: Clear to auscultation bilaterally, no increased work of breathing CARDIOVASCULAR: Regular Rate/ Rhythm, no swelling, edema or tenderness in BUE or BLE. All extremities warm. GI: + bowel sounds, soft, NTTP, nondistended. INTEGUMENTARY: Normal, no lesion, rash, masses or bruising noted in extremities. MUSCULOSKELETAL: BUE and BLE normal without defect, crepitus, subluxation, effusion, arthritic changes or TTP. SA EF WE EE FF FA HF KE ADF EHL APF R 3/5 3/5 3/5 3/5 3/5 3/5 3/5 3/5 3/5 3/5 3/5 L 5/5 5/5 5/5 5/5 5/5 5/5 5/5 5/5 5/5 5/5 5/5 ROM decreased on RUE and RLE Tone increased on right NEURO: CN II-XII grossly intact Sensation intact in all extremities with extinction on LE. Coordination deficit on right. No tremor noted in 4 extremities. Naming and repetition intact. Follows 2 step commands. Aphasia not appreciated Dysarthria noted Dysphagia oral phase Neglect not appreciated POSTURE and GAIT: Sitting posture ok. Balance appears reasonable. Gait slow with HW. PSYCH: Alert, orientated x3, affect appears euthymic. Insight appears intact. - Constitutional Vitals: Vital Signs - 12hr 09/22/18 09/22/18 04:37 08:00 Temperature 36.7 C 36.6 C Pulse Rate 87 90 Respiratory 17 18 Rate Blood Pressure 114/63 133/72 [Left] O2 Sat by Pulse 97 Oximetry - Allied health notes Allied health notes reviewed: nursing, PT, ST, OT FIMS assessment as documented by PT/OT/ST: Grooming Patient cleans teeth/dentures: No Patient henson/brushes hair: No Patient washes, rinses and Yes dries face: Patient washes, rinses and Yes dries hands: Patient applies make-up: No Patient performs (no make-up/ 2/4 (50%) shaving): Grooming FIM Score 3. Moderate Assistance (Patient = 50% or more) Toileting Toileting Device Commode over Toilet,Grab Bar Patient able to: Adjust clothes before,Clean self,Adjust clothes after Patient able to perform: 3/3 (100%) Toileting FIM Score 4. Minimal Assistance (Patient = 75% or more. Needs touching.) Social interaction/Memory/Problem solving Social Interaction FIM Score 6. Mod. [place] (Mostly appropriate. May need meds. No supv.) Memory FIM Score 4. Minimal Assistance (Recognizes and remembers 75-90%.) Problem Solving FIM Score 4. Minimal Assistance (Solves routine problems 75-90%.) Transfers Mode of Locomotion: Wheelchair Bed/Chair/Wheelchair Transfers 4. Minimal Assistance (Patient = 75% or more. FIM Score Needs touching.) Toilet Transfers FIM Score 4. Minimal Assistance (Patient = 75% or more. Needs touching.) Patient transferred to: Shower Shower Transfers FIM Score 4. Minimal Assistance (Patient = 75% or more. Needs touching.) Locomotion- Stairs Device used on Stairs Handrail/s Number of Stairs Ascended/ 4 Descended Patient used handrail/support: Yes Stairs FIM Score 2. Maximal Assistance (Patient = 25% or more, 4- 6 stairs.) Locomotion- walk/wheelchair Most Frequent Mode of Wheelchair Locomotion: Ambulation Distance 93 Walking FIM Score 2. Maximal Assistance (Patient = 25% or more. Minimum of 50 ft.) Wheelchair Propulsion Distance 106 Wheelchair FIM Score 2. Maximal Assistance (Patient = 25% or more. Minimum of 50 ft.) Eating Eating FIM Score 5. Supervision/Set-Up (Needs help w/ containers, cutting meat, etc.) Dressing-Upper body Patient retrieves clothing No items: Patient applies/removes UE n/a prosthesis or orthosis: Upper Body Dressing FIM Score 3. Moderate Assistance (Patient = 50% or more) Dressing-lower body Patient retrieves clothing No items: Patient applies/removes LE n/a prosthesis or orthosis: Lower Body Dressing FIM Score 2. Maximal Assistance (Patient = 25% or more) - Labs CBC & Chem 7: 09/21/18 04:44 09/24/18 05:54 Labs: Laboratory Results - last 72 hr 09/21/18 09/21/18 04:44 04:44 WBC 8.2 RBC 3.68 Hgb 10.0 L Hct 30.5 MCV 83 MCH 27 L MCHC 33 RDW 14.2 Plt Count 296 Lymph % (Auto) 33.4 [place] % (Auto) 7.5 H Eos % (Auto) 3.8 Baso % (Auto) 0.9 Lymph # 2.7 [place] # 0.6 Eos # 0.3 Baso # 0.1 Seg Neutrophils % 54.4 Seg Neutrophils # 4.5 Sodium 140 Potassium 4.3 Chloride 106.3 Carbon Dioxide 25 Anion Gap 13 BUN 18 H Creatinine 1.1 Estimated GFR 49 BUN/Creatinine Ratio 16 Glucose 91 Calcium 8.7 Total Bilirubin 0.20 AST 21 ALT 15 Alkaline Phosphatase 54 Total Protein 6.3 Albumin 3.6 L Albumin/Globulin Ratio 1.3 Assessment and Plan - I69.351 Right dominant hemiplegia and hemiparesis after CVA: continue secondary stroke prevention and neuromotor therapy as above. Monitor for post stroke depression, shoulder hand syndrome, and neurologic decline. - I69.391 Dysphagia: Continue current diet. SURVEY METHODOLOGIST to monitor and advance diet as able, and perform FEES, MBSS or EStim as needed. - I69.322 Dysarthria: Continue SURVEY METHODOLOGIST to improve ability to speak clearly by strengthening and improving control of muscles, improving breath support and slowing rate of speech. - I10 Hypertension: Continue medications and monitor. Adjust as needed. - Z73.6 ADL dysfunction: OT will work on improving ability to perform ADLs (including assistive devices) to increase independence and decrease caregiver burden and improve functional transfers and mobility training. - R26.2 Difficulty walking: PT will work on gait training and proper use of assistive devices and advance as appropriate to use of stairs and outside ambulation on uneven surfaces. - R26.81 Unsteadiness on feet: PT will work on improving static and dynamic sitting and standing balance as well as proper use of assistive devices to decrease risk of falls. - R26.89 Abnormality of gait: PT will work to improve safety and efficiency of gait through neuromotor training and gait training along with instruction on proper use of assistive devices. - M62.81 Muscle weakness: PT & OT will work on strengthening exercises to improve functional strength including mixture of closed and open kinetic chain exercises. - R53.81 Debility: PT & OT will work on improving overall functional status to improve participation with ADLs, mobility and social involvement. - R53.83 Fatigue: PT & OT will work on improving endurance through aerobic exercises and therapeutic activity while monitoring patients tolerance for activity and vital signs as needed. - G47.00 Insomnia: Trazodone, monitor DVT ppx:Lovenox Pain: Continue physical modalities in therapy and pain medications as needed to achieve functional pain control. Sleep: Monitor and address as needed. Trazodone ordered Bowel: Monitor and address as needed. Appetite: Monitor and address as needed. Discharge planning: Pending therapy progress and care plan meeting. Will continue discussion with therapy team, SW, patient and family. Restrictions/ Precautions: Falls, dysphagia WB status: FWB Functional Hx: ADLs: Independent Cognition: Independent Mobility: RW Barriers to Discharge: Decreased mobility and ability to perform self care, balance deficits, weakness, dysphagia, dysarthria, increased tone Estimated Length of Stay: 14-21 days Discharge Destination: Home with family
[2018-09-22] MEDS: DESYREL PO PRN (23:26)
[2018-09-23] MEDS: PROTONIX PO SCH (08:34)
[2018-09-23] MEDS: ECOTRIN PO SCH (08:34)
[2018-09-23] MEDS: LOVENOX SUB-Q SCH (08:34)
--- NOTE | 2018-09-23 22:02 | IRU Plan of Care ---
Interdisciplinary Plan of Care - IP IRU INTERDISCIPLINARY PLAN: [facility] Inpatient Rehab Unit Plan of Care IRU Interdisciplinary Care Plan Start: 09/20/18 12:52 Freq: Admission then PRN Status: Active Protocol: Document 09/23/18 20:40 TH (Rec: 09/23/18 20:49 TH [id number]) Interdisciplinary Problem List Interdisciplinary Problem List Interdisciplinary Problem List Impaired Eating/Swallowing, Query Text:Answers will Trigger Problems Impaired Bathing/Grooming, and Outcomes on Worklist. Impaired Dressing,Impaired Mobility,Impaired Transfers, Impaired Toileting,Impaired Comprehension,Impaired Expression,Impaired Problem Solving,Knowledge Deficits, Discharge Concerns,Impaired Safety,Medications Education IRU Interdisciplinary Care Plan Therapy Services Therapy Services Will Include: Physical Therapy,Occupational Query Text:Patient will be seen for a Therapy,Speech Therapy minimum of 3 hours of daily therapy 5 out of 7 days a week. Therapy intensity may be adjusted within a 7 consecutive day period to effectively serve the individual needs of the patient. Treatment Frequency/Intensity/Duration Treatment Frequency 5days/wk Treatment Intensity 3 hrs/day Treatment Duration 14-21 days Problem Area: Eating/Swallowing Eating/Swallowing Outcomes Consume Least Restrictive Diet ,Improve Labial ROM/Strength Eating/Swallowing Interventions Problem Area: Bathing/Grooming Bathing/Grooming Outcomes Improve [place] w/ Grooming,Improve [place] w/ Bathing Bathing/Grooming Interventions ADL Training,Use of Assistive Devices,Therapeutic Exercise, Therapeutic Activity, Neuromuscular Re-Education, Balance Work,Activity Tolerance Work,Patient/ Caregiver Education Problem Area: Dressing Dressing Outcomes Improve [place] w/ UB Dressing,Improve [place] w/ LB Dressing Dressing Interventions ADL Training,Use of Assistive Devices,Neuromuscular Re- Education,Therapeutic Exercise ,Balance Work,Modalities, Patient/Caregiver Education Problem Area: Mobility Mobility Outcomes Improve [place] w/ Bed Mobility,Improve [place] w/ Ambulation,Improve [place] w/ Stairs/Curb, Improve [place] w/ Wheelchair Mobility Interventions Therapeutic Exercise, Neuromuscular Re-Ed.,Visual/ Perceptual Training,Activity Tolerance Work,Modalities,Use of Assistive Devices,Gait Training,Household Mobility Work,W/C Mobility Work Problem Area: Transfers Transfers Outcomes Improve [place] w/ Bed Transfers,Improve [place] w/ Car Transfers Transfers Interventions Transfer Training,Therapeutic Exercise,Neuromuscular Re- Education,Activity Tolerance Work,Modalities,Use of Assistive Devices,Patient/ Caregiver Education Problem Area: Bowel/Bladder Managment Bowel/Bladder Outcomes Bowel/Bladder Interventions Problem Area: Toileting Toileting Outcomes Improve [place] w/ Toileting Toileting Interventions ADL Training,Balance Work,Use of Assistive Devices,Patient/ Caregiver Education Problem Area: Nutrition Nutrition Outcomes Nutrition Interventions Problem Area: Comprehension Comprehension Outcomes Improve Comprehension,Improve Communication Comprehension Interventions Patient/Caregiver Education Problem Area: Expression Expression Outcomes Improve Intelligibility Expression Interventions Patient/Caregiver Education Problem Area: Problem Solving Problem Solving Outcomes Improve Problem Solving Problem Solving Interventions Cognitive Training Problem Area: Memory Memory Outcomes Memory Interventions Problem Area: Pain Management Pain Management Outcomes Pain Management Interventions Problem Area: Knowledge Deficits Knowledge Deficits Outcomes Verbalize Precautions, Verbalize Understanding of S/S of Stroke Knowledge Deficits Interventions Disease/Injury/Sx. Intervention Education,Disease Management Education,Safety Education Problem Area: Skin/Tissue Integrity Skin/Tissue Integrity Outcomes Skin/Tissue Integrity Interventions Problem Area: Social Interaction Social Interaction Outcomes Social Interaction Interventions Problem Area: Adjustment to Disability Adjustment to Disability Outcomes Adjustment to Disability Interventions Problem Area: Discharge Concerns Discharge Concerns Outcomes Discharge w/ Necessary Equipment,Have Private Aide at Home,Have Home Health/ Outpatient Services Discharge Concerns Interventions Discharge Planning,Equipment Assessment, Acquisition and Placement,Family/Caregiver Conference,Patient/Family/ Caregiver Counseling,Family/ Caregiver Training Problem Area: Community Reintegration Community Reintegration Outcomes Community Reintegration Interventions Problem Area: Home Management Home Management Outcomes Improve [place] w/ Home Management Home Management Interventions Clothing Care,Activity Tolerance Work,Patient/ Caregiver Education Problem Area: Safety Safety Outcomes Provide Safe Environment, Perform Selfcare Safely, Demonstrate Good Safety w/ Transfers/Mobility Safety Interventions Identify Fall Risk,[place] Pt. to Environment,Reduce Environmental Hazards Problem Area: Medication Education Medication Education Outcomes Patient/Caregiver will Verbalize Understanding of Medications Medication Education Interventions Explain Administration/Side Effects/Interactions Problem Area: Diabetes Education Diabetes Education Outcomes Diabetes Education Interventions Problem Area: Oxygenation Oxygenation Outcomes Oxygenation Interventions Problem Area: Cardiovascular Cardiovascular Outcomes Cardiovascular Interventions Physician Only Medical Prognosis and Rehabilitation Potential (Completed by Physician) Good medical prognosis and good rehab potential. Monitor for post stroke depression, worsening neurologic condition and hypertension. This plan of care has been developed based on the findings from the pre- admission assessment, post admission physician evaluation, information gathered from the assessments from all therapy disciplines and other pertinent clinicians. The plan of care has been reviewed and discussed in collaboration with the interdisciplinary team. The plan of care will be reviewed and updated at least weekly.
[2018-09-24 07:05] LABS: Calcium 8.8 mg/dL (8.4-10.2)
[2018-09-24] MEDS: PROTONIX PO SCH (08:49)
[2018-09-24] MEDS: ECOTRIN PO SCH (08:49)
[2018-09-24] MEDS: LOVENOX SUB-Q SCH (08:49)
--- NOTE | 2018-09-24 20:28 | Progress Note ---
Subjective Date of service: 09/24/18 Principal diagnosis: CVA Interval history: 68 yo female with a recent prior history of CVA report to the ER with right- sided weakness and worsening slurred speech. Last CVA was diagnosed in May 2018. She was worked up for CVA and her brain MRI showed an acute right basal ganglia infarct. She also had chronic lacunar infarcts in the thalami and alvino and a large chronic right cerebellum infarct. She was assessed by Speech therapy due to difficulty swallowing and was noted to have oral phase dysphagia. After she was medically cleared she was transferred for further rehab. Patient is participating in therapy and making fair progress. Sleeping ok with home trazodone dose. Vitals have been stable. Denies pain, chest pain, dyspnea, N/V, H/A. +BM. Discussed ROM and stretching for RUE to decrease tone. Discussed secondary stroke prevention. Labs, vitals and records reviewed. No other issues per nursing or therapy. Continue therapy. Objective - Exam Narrative Exam: MUSCULOSKELETAL SPECIALTY EXAM CONSTITUTIONAL: Well developed, well nourished, appropriately groomed. RIGHT hand dominant. RESPIRATORY: Clear to auscultation bilaterally, no increased work of breathing CARDIOVASCULAR: Regular Rate/ Rhythm, no swelling, edema or tenderness in BUE or BLE. All extremities warm. GI: + bowel sounds, soft, NTTP, nondistended. INTEGUMENTARY: Normal, no lesion, rash, masses or bruising noted in extremities. MUSCULOSKELETAL: BUE and BLE normal without defect, crepitus, subluxation, effusion, arthritic changes or TTP. SA EF WE EE FF FA HF KE ADF EHL APF R 3/5 3/5 3/ 3/ 3/ 3/5 3/5 3/5 3/5 3/5 3/5 L 5/5 5/5 5/5 5/5 5/5 5/5 5/5 5/5 5/5 5/5 5/5 ROM decreased on RUE and RLE Tone increased on right NEURO: CN II-XII grossly intact Sensation intact in all extremities with extinction on LE. Coordination deficit on right. No tremor noted in 4 extremities. Naming and repetition intact. Follows 2 step commands. Aphasia not appreciated Dysarthria noted Dysphagia oral phase Neglect not appreciated POSTURE and GAIT: Sitting posture ok. Balance appears reasonable. Gait slow with HW. PSYCH: Alert, orientated x3, affect appears euthymic. Insight appears intact. - Constitutional Vitals: Vital Signs - 12hr 09/24/18 09/24/18 11:00 15:00 Temperature 36.2 C L 37.1 C Pulse Rate 86 96 H Respiratory 20 18 Rate Blood Pressure 148/70 136/71 [Left] O2 Sat by Pulse 96 97 Oximetry - Allied health notes Allied health notes reviewed: nursing, PT, ST, OT FIMS assessment as documented by PT/OT/ST: Grooming Patient cleans teeth/dentures: No Patient henson/brushes hair: No Patient washes, rinses and Yes dries face: Patient washes, rinses and Yes dries hands: Patient applies make-up: No Patient performs (no make-up/ 2/4 (50%) shaving): Grooming FIM Score 3. Moderate Assistance (Patient = 50% or more) Toileting Toileting Device Commode over Toilet,Grab Bar Patient able to: Adjust clothes before,Clean self,Adjust clothes after Patient able to perform: 3/3 (100%) Toileting FIM Score 4. Minimal Assistance (Patient = 75% or more. Needs touching.) Social interaction/Memory/Problem solving Social Interaction FIM Score 6. Mod. [place] (Mostly appropriate. May need meds. No supv.) Memory FIM Score 4. Minimal Assistance (Recognizes and remembers 75-90%.) Problem Solving FIM Score 5. Supervision (Needs cueing <10% to solve routine problems.) Transfers Mode of Locomotion: Wheelchair Bed/Chair/Wheelchair Transfers 4. Minimal Assistance (Patient = 75% or more. FIM Score Needs touching.) Toilet Transfers FIM Score 4. Minimal Assistance (Patient = 75% or more. Needs touching.) Patient transferred to: Shower Shower Transfers FIM Score 4. Minimal Assistance (Patient = 75% or more. Needs touching.) Locomotion- Stairs Device used on Stairs Large Base Quad Cane,Handrail/s Number of Stairs Ascended/ 9 Descended Patient used handrail/support: Yes Stairs FIM Score 2. Maximal Assistance (Patient = 25% or more, 4- 6 stairs.) Locomotion- walk/wheelchair Most Frequent Mode of Wheelchair Locomotion: Ambulation Distance 152 Walking FIM Score 4. Minimal Assistance (Patient = 75% or more. Minimum of 150 ft.) Wheelchair Propulsion Distance 125 Wheelchair FIM Score 2. Maximal Assistance (Patient = 25% or more. Minimum of 50 ft.) Eating Eating FIM Score 5. Supervision/Set-Up (Needs help w/ containers, cutting meat, etc.) Dressing-Upper body Patient retrieves clothing No items: Patient applies/removes UE n/a prosthesis or orthosis: Upper Body Dressing FIM Score 3. Moderate Assistance (Patient = 50% or more) Dressing-lower body Patient retrieves clothing No items: Patient applies/removes LE n/a prosthesis or orthosis: Lower Body Dressing FIM Score 3. Moderate Assistance (Patient = 50% or more) - Labs CBC & Chem 7: 09/21/18 04:44 09/24/18 05:54 Labs: Laboratory Results - last 72 hr 09/22/18 09/24/18 09/24/18 21:11 05:54 07:26 Sodium 143 Potassium 4.4 Chloride 106.3 Carbon Dioxide 25 Anion Gap 16 BUN 16 Creatinine 1.1 Estimated GFR 49 BUN/Creatinine Ratio 15 Glucose 90 POC Glucose 105 80 Calcium 8.8 09/24/18 09/24/18 11:55 16:26 Sodium Potassium Chloride Carbon Dioxide Anion Gap BUN Creatinine Estimated GFR BUN/Creatinine Ratio Glucose POC Glucose 111 H 91 Calcium Assessment and Plan - I69.351 Right dominant hemiplegia and hemiparesis after CVA: continue secondary stroke prevention and neuromotor therapy as above. Monitor for post stroke depression, shoulder hand syndrome, and neurologic decline. - I69.391 Dysphagia: Continue current diet. BENDER HAND to monitor and advance diet as able, and perform FEES, MBSS or EStim as needed. - I69.322 Dysarthria: Continue BENDER HAND to improve ability to speak clearly by strengthening and improving control of muscles, improving breath support and slowing rate of speech. - I10 Hypertension: Continue medications and monitor. Adjust as needed. - Z73.6 ADL dysfunction: OT will work on improving ability to perform ADLs (including assistive devices) to increase independence and decrease caregiver b urden and improve functional transfers and mobility training. - R26.2 Difficulty walking: PT will work on gait training and proper use of assistive devices and advance as appropriate to use of stairs and outside ambulation on uneven surfaces. - R26.81 Unsteadiness on feet: PT will work on improving static and dynamic sitting and standing balance as well as proper use of assistive devices to decrease risk of falls. - R26.89 Abnormality of gait: PT will work to improve safety and efficiency of gait through neuromotor training and gait training along with instruction on proper use of assistive devices. - M62.81 Muscle weakness: PT & OT will work on strengthening exercises to improve functional strength including mixture of closed and open kinetic chain exercises. - R53.81 Debility: PT & OT will work on improving overall functional status to improve participation with ADLs, mobility and social involvement. - R53.83 Fatigue: PT & OT will work on improving endurance through aerobic exercises and therapeutic activity while monitoring patients tolerance for activity and vital signs as needed. - G47.00 Insomnia: Trazodone, monitor DVT ppx:Lovenox Pain: Continue physical modalities in therapy and pain medications as needed to achieve functional pain control. Sleep: Monitor and address as needed. Trazodone ordered Bowel: Monitor and address as needed. Appetite: Monitor and address as needed. Discharge planning: Pending therapy progress and care plan meeting. Will continue discussion with therapy team, SW, patient and family. Restrictions/ Precautions: Falls, dysphagia WB status: FWB Functional Hx: ADLs: Independent Cognition: Independent Mobility: RW Barriers to Discharge: Decreased mobility and ability to perform self care, balance deficits, weakness, dysphagia, dysarthria, increased tone Estimated Length of Stay: 14-21 days Discharge Destination: Home with family
[2018-09-24] MEDS: DESYREL PO PRN (23:10)
[2018-09-25] MEDS: PROTONIX PO SCH (10:54)
[2018-09-25] MEDS: LOVENOX SUB-Q SCH (10:54)
[2018-09-25] MEDS: ECOTRIN PO SCH (10:54)
[2018-09-25] MEDS: DESYREL PO PRN (22:05)
[2018-09-26] MEDS: LOVENOX SUB-Q SCH (10:00)
[2018-09-26] MEDS: PROTONIX PO SCH (10:00)
[2018-09-26] MEDS: ECOTRIN PO SCH (10:00)
[2018-09-26] MEDS: DESYREL PO PRN (22:15)
--- NOTE | 2018-09-27 09:33 | Progress Note ---
Subjective Date of service: 09/27/18 Principal diagnosis: CVA Interval history: 68 yo female with a recent prior history of CVA report to the ER with right- sided weakness and worsening slurred speech. Last CVA was diagnosed in May 2018. She was worked up for CVA and her brain MRI showed an acute right basal ganglia infarct. She also had chronic lacunar infarcts in the thalami and alvino and a large chronic right cerebellum infarct. She was assessed by Speech therapy due to difficulty swallowing and was noted to have oral phase dysphagia. After she was medically cleared she was transferred for further rehab. Patient is participating in therapy and making fair progress. Sleeping ok. V itals have been stable. Denies pain, chest pain, dyspnea, N/V, H/A. +BM. Discussed ROM and stretching for RUE to decrease tone. Discussed secondary stroke prevention. Labs, vitals and records reviewed. No other issues per nursing or therapy. Continue therapy. Patient discussed in team conference. She is making very good progress with physical therapy and is ambulating approximately 100 feet per attempt with a slower charli. Continue to work on balance and stability. Improving with OT as well. Continues to have increased tone in the right upper extremity is being worked on with strengthening and stretching. Remains on dysfunction diet. Has good support at home will likely discharge home we'll continue therapy. Objective - Exam Narrative Exam: MUSCULOSKELETAL SPECIALTY EXAM CONSTITUTIONAL: Well developed, well nourished, appropriately groomed. RIGHT hand dominant. RESPIRATORY: Clear to auscultation bilaterally, no increased work of breathing CARDIOVASCULAR: Regular Rate/ Rhythm, no swelling, edema or tenderness in BUE or BLE. All extremities warm. GI: + bowel sounds, soft, NTTP, nondistended. INTEGUMENTARY: Normal, no lesion, rash, masses or bruising noted in extremities. MUSCULOSKELETAL: BUE and BLE normal without defect, crepitus, subluxation, effusion, arthritic changes or TTP. SA EF WE EE FF FA HF KE ADF EHL APF R / 3/ 307/26 3 3 3/ 3/ 3/ 3/09 23/5 L 5/ 5/5 5/5 5/5 5/ 5/ 5/ 5/ 5/ 5/ 5/ ROM decreased on RUE and RLE Tone increased on right NEURO: CN II-XII grossly intact Sensation intact in all extremities with extinction on LE. Coordination deficit on right. No tremor noted in 4 extremities. Naming and repetition intact. Follows 2 step commands. Aphasia not appreciated Dysarthria noted Dysphagia oral phase Neglect not appreciated POSTURE and GAIT: Sitting posture ok. Balance appears reasonable. Gait slowed. PSYCH: Alert, orientated x3, affect appears euthymic. Insight appears intact. - Constitutional Vitals: Vital Signs - 12hr 09/27/18 07:00 Temperature 36.3 C L Pulse Rate 68 Respiratory 16 Rate Blood Pressure 148/77 [Left] O2 Sat by Pulse 100 Oximetry - Allied health notes Allied health notes reviewed: nursing, PT, ST, OT FIMS assessment as documented by PT/OT/ST: Grooming Patient cleans teeth/dentures: No Patient henson/brushes hair: No Patient washes, rinses and Yes dries face: Patient washes, rinses and Yes dries hands: Patient applies make-up: No Patient performs (no make-up/ 2/4 (50%) shaving): Grooming FIM Score 3. Moderate Assistance (Patient = 50% or more) Toileting Toileting Device Commode over Toilet Patient able to: Adjust clothes before,Clean self Patient able to perform: 2/3 (67%) Toileting FIM Score 3. Moderate Assistance (Patient = 50% or more. Some lifting.) Social interaction/Memory/Problem solving Social Interaction FIM Score 7. Complete [place] (Interacts appropriately. Controls temper.) Memory FIM Score 6. Modified [place](Mild difficulty remembering people/routines.) Problem Solving FIM Score 5. Supervision (Needs cueing <10% to solve routine problems.) Transfers Mode of Locomotion: Wheelchair Bed/Chair/Wheelchair Transfers 4. Minimal Assistance (Patient = 75% or more. FIM Score Needs touching.) Toilet Transfers FIM Score 3. Moderate Assistance (Patient = 50% or more. Some lifting.) Patient transferred to: Shower Shower Transfers FIM Score 4. Minimal Assistance (Patient = 75% or more. Needs touching.) Locomotion- Stairs Device used on Stairs Large Base Quad Cane,Handrail/s Number of Stairs Ascended/ 9 Descended Patient used handrail/support: Yes Stairs FIM Score 2. Maximal Assistance (Patient = 25% or more, 4- 6 stairs.) Locomotion- walk/wheelchair Most Frequent Mode of Wheelchair Locomotion: Ambulation Distance 105 Walking FIM Score 2. Maximal Assistance (Patient = 25% or more. Minimum of 50 ft.) Wheelchair Propulsion Distance 150 Wheelchair FIM Score 5. Supervision (Minimum 150 ft. supv./cues or 50 ft. independently.) Eating Eating FIM Score 5. Supervision/Set-Up (Needs help w/ containers, cutting meat, etc.) Dressing-Upper body Patient retrieves clothing No items: Patient applies/removes UE n/a prosthesis or orthosis: Upper Body Dressing FIM Score 3. Moderate Assistance (Patient = 50% or more) Dressing-lower body Patient retrieves clothing No items: Patient applies/removes LE n/a prosthesis or orthosis: Lower Body Dressing FIM Score 3. Moderate Assistance (Patient = 50% or more) - Labs CBC & Chem 7: 09/21/18 04:44 09/24/18 05:54 Labs: Laboratory Results - last 72 hr 09/24/18 09/24/18 09/25/18 11:55 16:26 08:06 POC Glucose 111 H 91 87 09/25/18 09/25/18 09/26/18 18:07 21:22 07:44 POC Glucose 146 H 90 81 09/26/18 09/26/18 09/26/18 11:51 16:26 22:02 POC Glucose 91 105 99 09/27/18 07:37 POC Glucose 100 Assessment and Plan - I69.351 Right dominant hemiplegia and hemiparesis after CVA: continue secondary stroke prevention and neuromotor therapy as above. Monitor for post stroke depression, shoulder hand syndrome, and neurologic decline. - I69.391 Dysphagia: Continue current diet. BARGE WORKER to monitor and advance diet as able, and perform FEES, MBSS or EStim as needed. - I69.322 Dysarthria: Continue BARGE WORKER to improve ability to speak clearly by stre ngthening and improving control of muscles, improving breath support and slowing rate of speech. - I10 Hypertension: Continue medications and monitor. Adjust as needed. - Z73.6 ADL dysfunction: OT will work on improving ability to perform ADLs (including assistive devices) to increase independence and decrease caregiver burden and improve functional transfers and mobility training. - R26.2 Difficulty walking: PT will work on gait training and proper use of assistive devices and advance as appropriate to use of stairs and outside ambulation on uneven surfaces. - R26.81 Unsteadiness on feet: PT will work on improving static and dynamic sitting and standing balance as well as proper use of assistive devices to decrease risk of falls. - R26.89 Abnormality of gait: PT will work to improve safety and efficiency of gait through neuromotor training and gait training along with instruction on pr oper use of assistive devices. - M62.81 Muscle weakness: PT & OT will work on strengthening exercises to improve functional strength including mixture of closed and open kinetic chain exercises. - R53.81 Debility: PT & OT will work on improving overall functional status to improve participation with ADLs, mobility and social involvement. - R53.83 Fatigue: PT & OT will work on improving endurance through aerobic exercises and therapeutic activity while monitoring patients tolerance for activity and vital signs as needed. - G47.00 Insomnia: Trazodone, monitor DVT ppx:Lovenox Pain: Continue physical modalities in therapy and pain medications as needed to achieve functional pain control. Sleep: Monitor and address as needed. Trazodone ordered Bowel: Monitor and address as needed. Appetite: Monitor and address as needed. Discharge planning: Pending therapy progress and care plan meeting. Will continue discussion with therapy team, SW, patient and family. Restrictions/ Precautions: Falls, dysphagia WB status: FWB Functional Hx: ADLs: Independent Cognition: Independent Mobility: RW Barriers to Discharge: Decreased mobility and ability to perform self care, balance deficits, weakness, dysphagia, dysarthria, increased tone Estimated Length of Stay: 14-21 days Discharge Destination: Home with family
[2018-09-27] MEDS: LOVENOX SUB-Q SCH (11:03)
[2018-09-27] MEDS: ECOTRIN PO SCH (11:03)
[2018-09-27] MEDS: PROTONIX PO SCH (11:04)
[2018-09-27] MEDS: DESYREL PO PRN (21:41)
[2018-09-28] MEDS: ECOTRIN PO SCH (11:30)
[2018-09-28] MEDS: PROTONIX PO SCH (11:35)
[2018-09-28] MEDS: LOVENOX SUB-Q SCH (13:58)
[2018-09-28] MEDS: DESYREL PO PRN (22:24)
[2018-09-29] MEDS: LOVENOX SUB-Q SCH (07:41)
[2018-09-29] MEDS: PROTONIX PO SCH (07:41)
[2018-09-29] MEDS: ECOTRIN PO SCH (07:41)
--- NOTE | 2018-09-29 12:51 | Progress Note ---
Subjective Date of service: 09/29/18 Principal diagnosis: CVA Interval history: 68 yo female with a recent prior history of CVA report to the ER with right- sided weakness and worsening slurred speech. Last CVA was diagnosed in May 2018. She was worked up for CVA and her brain MRI showed an acute right basal ganglia infarct. She also had chronic lacunar infarcts in the thalami and alvino and a large chronic right cerebellum infarct. She was assessed by Speech therapy due to difficulty swallowing and was noted to have oral phase dysphagia. After she was medically cleared she was transferred for further rehab. Sitting in chair. Patient is participating in therapy and making fair progress. Sleep ok. Vitals have been stable. Denies pain, chest pain, dyspnea, N/V, H/A. +BM. Discussed ROM and stretching for RUE to decrease tone. Discussed secondary stroke prevention. Labs, vitals and records reviewed. No other issues per nursing or therapy. Continue therapy. Objective - Exam Narrative Exam: MUSCULOSKELETAL SPECIALTY EXAM CONSTITUTIONAL: Well developed, well nourished, appropriately groomed. RIGHT hand dominant. RESPIRATORY: Clear to auscultation bilaterally, no increased work of breathing CARDIOVASCULAR: Regular Rate/ Rhythm, no swelling, edema or tenderness in BUE or BLE. All extremities warm. GI: + bowel sounds, soft, NTTP, nondistended. INTEGUMENTARY: Normal, no lesion, rash, masses or bruising noted in extremities. MUSCULOSKELETAL: BUE and BLE normal without defect, crepitus, subluxation, effusion, arthritic changes or TTP. SA EF WE EE FF FA HF KE ADF EHL APF R / 3/ 3/ 3/ 3/09 23/ 3/ 3/ 3/ 3/ 3/5 L /5 5/5 5/5 5/5 5/5 5/5 5/5 5/5 5/5 5/5 5/5 ROM decreased on RUE and RLE Tone increased on right NEURO: CN II-XII grossly intact Sensation intact in all extremities with extinction on LE. Coordination deficit on right. No tremor noted in 4 extremities. Naming and repetition intact. Follows 2 step commands. Aphasia not appreciated Dysarthria noted Dysphagia oral phase Neglect not appreciated POSTURE and GAIT: Sitting posture ok. Balance appears reasonable. Gait slowed. PSYCH: Alert, orientated x3, affect appears euthymic. Insight appears intact. - Constitutional Vitals: Vital Signs - 12hr 09/29/18 09/29/18 04:51 08:00 Temperature 36.2 C L 36.6 C Pulse Rate 64 78 Respiratory 17 18 Rate Blood Pressure 146/62 129/84 [Left] O2 Sat by Pulse 93 Oximetry - Allied health notes Allied health notes reviewed: nursing, PT, ST, OT FIMS assessment as documented by PT/OT/ST: Grooming Patient cleans teeth/dentures: Yes Patient henson/brushes hair: Yes Patient washes, rinses and Yes dries face: Patient washes, rinses and Yes dries hands: Patient shaves: No Patient applies make-up: No Patient performs (no make-up/ / (100%) shaving): Grooming FIM Score 5. Supervision ([place] applies toothpaste or opens containers.) Toileting Toileting Device Commode over Toilet Patient able to: Adjust clothes before,Clean self Patient able to perform: 2/3 (67%) Toileting FIM Score 3. Moderate Assistance (Patient = 50% or more. Some lifting.) Social interaction/Memory/Problem solving Social Interaction FIM Score 5. Supervision (Needs supv. <10%. Needs encouragement to participate.) Memory FIM Score 6. Modified [place](Mild difficulty remembering people/routines.) Problem Solving FIM Score 6. Mod. [place] (Mild difficulty or needs more time w/ complex.) Transfers Mode of Locomotion: Wheelchair Bed/Chair/Wheelchair Transfers 4. Minimal Assistance (Patient = 75% or more. FIM Score Needs touching.) Toilet Transfers FIM Score 3. Moderate Assistance (Patient = 50% or more. Some lifting.) Patient transferred to: Shower Shower Transfers FIM Score 4. Minimal Assistance (Patient = 75% or more. Needs touching.) Locomotion- Stairs Device used on Stairs Large Base Quad Cane,Handrail/s Number of Stairs Ascended/ 9 Descended Patient used handrail/support: Yes Stairs FIM Score 2. Maximal Assistance (Patient = 25% or more, 4- 6 stairs.) Locomotion- walk/wheelchair Most Frequent Mode of Wheelchair Locomotion: Ambulation Distance 117 Walking FIM Score 2. Maximal Assistance (Patient = 25% or more. Minimum of 50 ft.) Wheelchair Propulsion Distance 150 Wheelchair FIM Score 5. Supervision (Minimum 150 ft. supv./cues or 50 ft. independently.) Eating Eating FIM Score 5. Supervision/Set-Up (Needs help w/ containers, cutting meat, etc.) Dressing-Upper body Patient retrieves clothing No items: Patient applies/removes UE n/a prosthesis or orthosis: Upper Body Dressing FIM Score 4. Minimal Assistance (Patient = 75% or more. Needs touching.) Dressing-lower body Patient retrieves clothing No items: Patient applies/removes LE n/a prosthesis or orthosis: Lower Body Dressing FIM Score 3. Moderate Assistance (Patient = 50% or more) - Labs CBC & Chem 7: 09/21/18 04:44 09/24/18 05:54 Labs: Laboratory Results - last 72 hr 09/26/18 09/26/18 09/26/18 11:51 16:26 22:02 POC Glucose 91 105 99 09/27/18 09/27/18 07:37 11:34 POC Glucose 100 118 H Assessment and Plan - I69.351 Right dominant hemiplegia and hemiparesis after CVA: continue secondary stroke prevention and neuromotor therapy as above. Monitor for post stroke depression, shoulder hand syndrome, and neurologic decline. - I69.391 Dysphagia: Continue current diet. TEXTILE BROKER to monitor and advance diet as able, and perform FEES, MBSS or EStim as needed. - I69.322 Dysarthria: Continue TEXTILE BROKER to improve ability to speak clearly by strengthening and improving control of muscles, improving breath support and slowing rate of speech. - I10 Hypertension: Continue medications and monitor. Adjust as needed. - Z73.6 ADL dysfunction: OT will work on improving ability to perform ADLs (including assistive devices) to increase independence and decrease caregiver burden and improve functional transfers and mobility training. - R26.2 Difficulty walking: PT will work on gait training and proper use of assistive devices and advance as appropriate to use of stairs and outside ambulation on uneven surfaces. - R26.81 Unsteadiness on feet: PT will work on improving static and dynamic sitting and standing balance as well as proper use of assistive devices to decrease risk of falls. - R26.89 Abnormality of gait: PT will work to improve safety and efficiency of gait through neuromotor training and gait training along with instruction on proper use of assistive devices. - M62.81 Muscle weakness: PT & OT will work on strengthening exercises to improve functional strength including mixture of closed and open kinetic chain exercises. - R53.81 Debility: PT & OT will work on improving overall functional status to improve participation with ADLs, mobility and social involvement. - R53.83 Fatigue: PT & OT will work on improving endurance through aerobic exercises and therapeutic activity while monitoring patients tolerance for activity and vital signs as needed. - G47.00 Insomnia: Trazodone, monitor DVT ppx:Lovenox Pain: Continue physical modalities in therapy and pain medications as needed to achieve functional pain control. Sleep: Monitor and address as needed. Trazodone ordered Bowel: Monitor and address as needed. Appetite: Monitor and address as needed. Discharge planning: Pending therapy progress and care plan meeting. Will continue discussion with therapy team, SW, patient and family. Restrictions/ Precautions: Falls, dysphagia WB status: FWB Functional Hx: ADLs: Independent Cognition: Independent Mobility: RW Barriers to Discharge: Decreased mobility and ability to perform self care, b alance deficits, weakness, dysphagia, dysarthria, increased tone Estimated Length of Stay: 14-21 days Discharge Destination: Home with family
[2018-09-29] MEDS: DESYREL PO PRN (21:22)
[2018-09-30] MEDS: LOVENOX SUB-Q SCH (07:36)
[2018-09-30] MEDS: PROTONIX PO SCH (07:36)
[2018-09-30] MEDS: ECOTRIN PO SCH (07:36)
[2018-09-30] MEDS: DESYREL PO PRN (21:26)
[2018-10-01] MEDS: LOVENOX SUB-Q SCH (08:29)
[2018-10-01] MEDS: ECOTRIN PO SCH (08:29)
[2018-10-01] MEDS: PROTONIX PO SCH (08:29)
--- NOTE | 2018-10-01 08:55 | Progress Note ---
Subjective Date of service: 10/01/18 Principal diagnosis: CVA Interval history: 68 yo female with a recent prior history of CVA report to the ER with right- sided weakness and worsening slurred speech. Last CVA was diagnosed in May 2018. She was worked up for CVA and her brain MRI showed an acute right basal ganglia infarct. She also had chronic lacunar infarcts in the thalami and alvino and a large chronic right cerebellum infarct. She was assessed by Speech therapy due to difficulty swallowing and was noted to have oral phase dysphagia. After she was medically cleared she was transferred for further rehab. Sitting in chair. Patient is participating in therapy and making fair progress. Sleep ok. Vitals have been stable. Denies pain, chest pain, dyspnea, N/V, H/A. +BM. Discussed ROM and stretching for RUE to decrease tone. Discussed secondary stroke prevention. Labs, vitals and records reviewed. No other issues per nursing or therapy. Continue therapy. Objective - Exam Narrative Exam: MUSCULOSKELETAL SPECIALTY EXAM CONSTITUTIONAL: Well developed, well nourished, appropriately groomed. RIGHT hand dominant. RESPIRATORY: Clear to auscultation bilaterally, no increased work of breathing CARDIOVASCULAR: Regular Rate/ Rhythm, no swelling, edema or tenderness in BUE or BLE. All extremities warm. GI: + bowel sounds, soft, NTTP, nondistended. INTEGUMENTARY: Normal, no lesion, rash, masses or bruising noted in extremities. MUSCULOSKELETAL: BUE and BLE normal without defect, crepitus, subluxation, effusion, arthritic changes or TTP. SA EF WE EE FF FA HF KE ADF EHL APF R / 3/ 3/ 3/ 3/09 23/ 3/5 3/5 3/ 3/5 3/5 L 5/5 5/5 5/5 5/5 5/5 5/5 5/5 5/5 5/5 5/5 5/5 ROM decreased on RUE and RLE Tone increased on right NEURO: CN II-XII grossly intact Sensation intact in all extremities with extinction on LE. Coordination deficit on right. No tremor noted in 4 extremities. Naming and repetition intact. Follows 2 step commands. Aphasia not appreciated Dysarthria noted Dysphagia oral phase Neglect not appreciated POSTURE and GAIT: Sitting posture ok. Balance appears reasonable. Gait slowed. PSYCH: Alert, orientated x3, affect appears euthymic. Insight appears intact. - Constitutional Vitals: Vital Signs - 12hr 10/01/18 10/01/18 03:30 07:20 Temperature 36.7 C 36.5 C Pulse Rate 75 106 H Respiratory 20 19 Rate Blood Pressure 145/77 Blood Pressure 148/97 [Left] O2 Sat by Pulse 97 97 Oximetry - Allied health notes Allied health notes reviewed: nursing, PT, ST, OT FIMS assessment as documented by PT/OT/ST: Grooming Patient cleans teeth/dentures: Yes Patient henson/brushes hair: Yes Patient washes, rinses and Yes dries face: Patient washes, rinses and Yes dries hands: Patient shaves: No Patient applies make-up: No Patient performs (no make-up/ / (100%) shaving): Grooming FIM Score 5. Supervision ([place] applies toothpaste or opens containers.) Toileting Toileting Device Commode over Toilet Patient able to: Adjust clothes before,Clean self Patient able to perform: 2/3 (67%) Toileting FIM Score 3. Moderate Assistance (Patient = 50% or more. Some lifting.) Social interaction/Memory/Problem solving Social Interaction FIM Score 5. Supervision (Needs supv. <10%. Needs encouragement to participate.) Memory FIM Score 5. Supervision (Needs cueing <10%, stressful/ unfamiliar situations.) Problem Solving FIM Score 5. Supervision (Needs cueing <10% to solve routine problems.) Transfers Mode of Locomotion: Wheelchair Bed/Chair/Wheelchair Transfers 4. Minimal Assistance (Patient = 75% or more. FIM Score Needs touching.) Toilet Transfers FIM Score 3. Moderate Assistance (Patient = 50% or more. Some lifting.) Patient transferred to: Shower Shower Transfers FIM Score 4. Minimal Assistance (Patient = 75% or more. Needs touching.) Locomotion- Stairs Device used on Stairs Handrail/s Number of Stairs Ascended/ 12 Descended Patient used handrail/support: Yes Stairs FIM Score 4. Minimal Assistance (Patient = 75% or more, touching. 12-14 stairs.) Locomotion- walk/wheelchair Most Frequent Mode of Wheelchair Locomotion: Ambulation Distance 170 Walking FIM Score 4. Minimal Assistance (Patient = 75% or more. Minimum of 150 ft.) Wheelchair Propulsion Distance 150 Wheelchair FIM Score 5. Supervision (Minimum 150 ft. supv./cues or 50 ft. independently.) Eating Eating FIM Score 5. Supervision/Set-Up (Needs help w/ containers, cutting meat, etc.) Dressing-Upper body Patient retrieves clothing No items: Patient applies/removes UE n/a prosthesis or orthosis: Upper Body Dressing FIM Score 4. Minimal Assistance (Patient = 75% or more. Needs touching.) Dressing-lower body Patient retrieves clothing No items: Patient applies/removes LE n/a prosthesis or orthosis: Lower Body Dressing FIM Score 4. Minimal Assistance (Patient = 75% or more. Needs touching.) - Labs CBC & Chem 7: 10/04/18 07:32 10/04/18 07:32 Labs: Laboratory Results - last 72 hr 09/30/18 07:33 POC Glucose 87 Assessment and Plan - I69.351 Right dominant hemiplegia and hemiparesis after CVA: continue secondary stroke prevention and neuromotor therapy as above. Monitor for post stroke depression, shoulder hand syndrome, and neurologic decline. - I69.391 Dysphagia: Continue current diet. SENIOR JAVASCRIPT ENGINEER to monitor and advance diet as able, and perform FEES, MBSS or EStim as needed. - I69.322 Dysarthria: Continue SENIOR JAVASCRIPT ENGINEER to improve ability to speak clearly by strengthening and improving control of muscles, improving breath support and slowing rate of speech. - I10 Hypertension: Continue medications and monitor. Adjust as needed. - Z73.6 ADL dysfunction: OT will work on improving ability to perform ADLs (including assistive devices) to increase independence and decrease caregiver burden and improve functional transfers and mobility training. - R26.2 Difficulty walking: PT will work on gait training and proper use of assistive devices and advance as appropriate to use of stairs and outside ambulation on uneven surfaces. - R26.81 Unsteadiness on feet: PT will work on improving static and dynamic sitting and standing balance as well as proper use of assistive devices to decrease risk of falls. - R26.89 Abnormality of gait: PT will work to improve safety and efficiency of gait through neuromotor training and gait training along with instruction on proper use of assistive devices. - M62.81 Muscle weakness: PT & OT will work on strengthening exercises to improve functional strength including mixture of closed and open kinetic chain exercises. - R53.81 Debility: PT & OT will work on improving overall functional status to improve participation with ADLs, mobility and social involvement. - R53.83 Fatigue: PT & OT will work on improving endurance through aerobic exercises and therapeutic activity while monitoring patients tolerance for activity and vital signs as needed. - G47.00 Insomnia: Trazodone, monitor DVT ppx:Lovenox Pain: Continue physical modalities in therapy and pain medications as needed to achieve functional pain control. Sleep: Monitor and address as needed. Trazodone ordered Bowel: Monitor and address as needed. Appetite: Monitor and address as needed. Discharge planning: Pending therapy progress and care plan meeting. Will continue discussion with therapy team, SW, patient and family. Restrictions/ Precautions: Falls, dysphagia WB status: FWB Functional Hx: ADLs: Independent Cognition: Independent Mobility: RW Barriers to Discharge: Decreased mobility and ability to perform self care, balance deficits, weakness, dysphagia, dysarthria, increased tone Estimated Length of Stay: 14-21 days Discharge Destination: Home with family
[2018-10-01] MEDS: DESYREL PO PRN (21:35)
[2018-10-02] MEDS: PROTONIX PO SCH (09:06)
[2018-10-02] MEDS: ECOTRIN PO SCH (09:06)
[2018-10-02] MEDS: LOVENOX SUB-Q SCH (09:06)
[2018-10-02] MEDS: DESYREL PO PRN (21:41)
[2018-10-03] MEDS: PROTONIX PO SCH (08:18)
[2018-10-03] MEDS: ECOTRIN PO SCH (08:18)
[2018-10-03] MEDS: LOVENOX SUB-Q SCH (08:18)
[2018-10-03] MEDS: DESYREL PO PRN (22:49)
[2018-10-04 08:01] LABS: Hematocrit 31.9 % (30.3-42.9); Hemoglobin 10.3 gm/dl (10.1-14.3); Mean Corpuscular HGB Conc 32 % (30-34); Mean Corpuscular Volume 84 fl (79-97); Platelet Count 342 K/mm3 (140-440); Red Blood Count 3.78 M/mm3 (3.65-5.03); Red Cell Distribution Width 15.5 % (13.2-15.2)
[2018-10-04 08:22] LABS: Calcium 9.2 mg/dL (8.4-10.2)
--- NOTE | 2018-10-04 10:05 | Progress Note ---
Subjective Date of service: 10/04/18 Principal diagnosis: CVA Interval history: 68 yo female with a recent prior history of CVA report to the ER with right- sided weakness and worsening slurred speech. Last CVA was diagnosed in May 2018. She was worked up for CVA and her brain MRI showed an acute right basal ganglia infarct. She also had chronic lacunar infarcts in the thalami and alvino and a large chronic right cerebellum infarct. She was assessed by Speech therapy due to difficulty swallowing and was noted to have oral phase dysphagia. After she was medically cleared she was transferred for further rehab. Sitting in chair. Patient is participating in therapy and making good progress. Sleep ok. Speech has improved but is not 100%. Sup for mobility. Min for ADLs. Vitals have been stable. Denies pain, chest pain, dyspnea, N/V, H/A. +BM. Discussed ROM and stretching for RUE to decrease tone. Discussed secondary stroke prevention. Labs, vitals and records reviewed. No other issues per nursing or therapy. Continue therapy. Discussed in team conference. Family training this week and discharge on . Plan for HH due to inability to get transportation for outpatient. Objective - Exam Narrative Exam: MUSCULOSKELETAL SPECIALTY EXAM CONSTITUTIONAL: Well developed, well nourished, appropriately groomed. RIGHT hand dominant. RESPIRATORY: Clear to auscultation bilaterally, no increased work of breathing CARDIOVASCULAR: Regular Rate/ Rhythm, no swelling, edema or tenderness in BUE or BLE. All extremities warm. GI: + bowel sounds, soft, NTTP, nondistended. INTEGUMENTARY: Normal, no lesion, rash, masses or bruising noted in extremities. MUSCULOSKELETAL: BUE and BLE normal without defect, crepitus, subluxation, effusion, arthritic changes or TTP. SA EF WE EE FF FA HF KE ADF EHL APF R / 3/ 3/ 3/ 3/09 23/09 23/09 23/09 23/09 23/09 23/ L 09/25 5/ 5 5 5 5 5/ 5/ 5/ 5/ 5 ROM decreased on RUE and RLE Tone increased on right NEURO: CN II-XII grossly intact Sensation intact in all extremities with extinction on LE. Coordination deficit on right. No tremor noted in 4 extremities. Naming and repetition intact. Follows 2 step commands. Aphasia not appreciated Dysarthria noted Dysphagia oral phase Neglect not appreciated POSTURE and GAIT: Sitting posture ok. Balance appears reasonable. Gait slowed. PSYCH: Alert, orientated x3, affect appears euthymic. Insight appears intact. - Constitutional Vitals: Vital Signs - 12hr 10/04/18 10/04/18 10/04/18 05:44 07:30 07:31 Temperature 37.1 C 36.8 C Pulse Rate 84 83 83 Respiratory 20 18 Rate Blood Pressure 132/77 Blood Pressure [Left] O2 Sat by Pulse 96 97 98 Oximetry 10/04/18 08:00 Temperature 36.9 C Pulse Rate Respiratory Rate Blood Pressure Blood Pressure 143/44 [Left] O2 Sat by Pulse Oximetry - Allied health notes FIMS assessment as documented by PT/OT/ST: Grooming Patient cleans teeth/dentures: Yes Patient henson/brushes hair: Yes Patient washes, rinses and Yes dries face: Patient washes, rinses and Yes dries hands: Patient shaves: No Patient applies make-up: No Patient performs (no make-up/ 4/4 (100%) shaving): Grooming FIM Score 5. Supervision ([place] applies toothpaste or opens containers.) Toileting Toileting Device Commode over Toilet Patient able to: Adjust clothes before,Clean self Patient able to perform: 2/3 (67%) Toileting FIM Score 2. Maximal Assistance (Patient = 25% or more) Social interaction/Memory/Problem solving Social Interaction FIM Score 5. Supervision (Needs supv. <10%. Needs encouragement to participate.) Memory FIM Score 5. Supervision (Needs cueing <10%, stressful/ unfamiliar situations.) Problem Solving FIM Score 4. Minimal Assistance (Solves routine problems 75-90%.) Transfers Mode of Locomotion: Wheelchair Bed/Chair/Wheelchair Transfers 4. Minimal Assistance (Patient = 75% or more. FIM Score Needs touching.) Toilet Transfers FIM Score 2. Maximal Assistance (Patient = 25% or more) Patient transferred to: Shower Shower Transfers FIM Score 4. Minimal Assistance (Patient = 75% or more. Needs touching.) Locomotion- Stairs Device used on Stairs Handrail/s Number of Stairs Ascended/ 12 Descended Patient used handrail/support: Yes Stairs FIM Score 4. Minimal Assistance (Patient = 75% or more, touching. 12-14 stairs.) Locomotion- walk/wheelchair Most Frequent Mode of Wheelchair Locomotion: Ambulation Distance 201 Walking FIM Score 4. Minimal Assistance (Patient = 75% or more. Minimum of 150 ft.) Wheelchair Propulsion Distance 150 Wheelchair FIM Score 5. Supervision (Minimum 150 ft. supv./cues or 50 ft. independently.) Eating Eating FIM Score 5. Supervision/Set-Up (Needs help w/ containers, cutting meat, etc.) Dressing-Upper body Patient retrieves clothing No items: Patient applies/removes UE n/a prosthesis or orthosis: Upper Body Dressing FIM Score 4. Minimal Assistance (Patient = 75% or more. Needs touching.) Dressing-lower body Patient retrieves clothing No items: Patient applies/removes LE n/a prosthesis or orthosis: Lower Body Dressing FIM Score 4. Minimal Assistance (Patient = 75% or more. 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 Monitor for post stroke depression, shoulder hand syndrome, and neurologic decline. - I69.391 Dysphagia: Continue current diet. BLADE OPERATOR to monitor and advance diet as able, and perform FEES, MBSS or EStim as needed. - I69.322 Dysarthria: Continue BLADE OPERATOR to improve ability to speak clearly by strengthening and improving control of muscles, improving breath support and slowing rate of speech. - I10 Hypertension: Continue medications and monitor. Adjust as needed. - Z73.6 ADL dysfunction: OT will work on improving ability to perform ADLs (including assistive devices) to increase independence and decrease caregiver burden and improve functional transfers and mobility training. - R26.2 Difficulty walking: PT will work on gait training and proper use of assistive devices and advance as appropriate to use of stairs and outside ambulation on uneven surfaces. - R26.81 Unsteadiness on feet: PT will work on improving static and dynamic sitting and standing balance as well as proper use of assistive devices to decrease risk of falls. - R26.89 Abnormality of gait: PT will work to improve safety and efficiency of gait through neuromotor training and gait training along with instruction on proper use of assistive devices. - M62.81 Muscle weakness: PT & OT will work on strengthening exercises to improve functional strength including mixture of closed and open kinetic chain exercises. - R53.81 Debility: PT & OT will work on improving overall functional status to improve participation with ADLs, mobility and social involvement. - R53.83 Fatigue: PT & OT will work on improving endurance through aerobic exercises and therapeutic activity while monitoring patients tolerance for activity and vital signs as needed. - G47.00 Insomnia: Trazodone, monitor DVT ppx:Lovenox Pain: Continue physical modalities in therapy and pain medications as needed to achieve functional pain control. Sleep: Monitor and address as needed. Trazodone Bowel: Monitor and address as needed. Appetite: Monitor and address as needed. Discharge planning: Pending therapy progress and care plan meeting. Will continue discussion with therapy team, SW, patient and family. Restrictions/ Precautions: Falls, dysphagia WB status: FWB Functional Hx: ADLs: Independent Cognition: Independent Mobility: RW Barriers to Discharge: Decreased mobility and ability to perform self care, balance deficits, weakness, dysphagia, dysarthria, increased tone Estimated Length of Stay: 14-21 days Discharge Destination: Home with family
[2018-10-04] MEDS: LOVENOX SUB-Q SCH (11:49)
[2018-10-04] MEDS: ECOTRIN PO SCH (11:50)
[2018-10-04] MEDS: PROTONIX PO SCH (11:51)
[2018-10-04] MEDS: DESYREL PO PRN (22:08)
[2018-10-05] MEDS: PROTONIX PO SCH (12:00)
[2018-10-05] MEDS: ECOTRIN PO SCH (12:00)
[2018-10-05] MEDS: LOVENOX SUB-Q SCH (12:52)
[2018-10-05] MEDS: DESYREL PO PRN (21:40)
[2018-10-06 08:11] VITALS: BP 141/73
[2018-10-06] MEDS: PROTONIX PO SCH (08:49)
[2018-10-06] MEDS: ECOTRIN PO SCH (08:49)
[2018-10-06] MEDS: LOVENOX SUB-Q SCH (08:49)
--- NOTE | 2018-10-06 11:15 | Discharge Summary ---
Providers - Providers Date of Admission: 09/20/18 12:43 Date of discharge: 10/06/18 Attending physician: HA MIRELES III, MD 09/20/18 11:31 Occupational Therapy Evaluate and Treat [CONS] Routine Comment: Reason For Exam: ADL dysfunction Physical Therapy Evaluation and Treat [CONS] Routine Comment: Reason For Exam: Mobility Dysfunction 09/20/18 11:40 Speech Therapy Evaluation and Treat [CONS] Routine Reason For Exam: Dysarthria and delayed oral transit 09/20/18 11:49 Consult to Case Management [CONS] Routine Services Needed at Discharge: Home Health Services Notified:: CLINICAL EDUCATORpalliative care physician physician: CARLOS THRASHER Hospitalization Reason for admission: CVA Condition: Good Hospital course: 68 yo female with a recent prior history of CVA report to the ER with right- sided weakness and worsening slurred speech. Last CVA was diagnosed in May 2018. She was worked up for CVA and her brain MRI showed an acute right basal ganglia infarct. She also had chronic lacunar infarcts in the thalami and alvino and a large chronic right cerebellum infarct. She was assessed by Speech therapy due to difficulty swallowing and was noted to have oral phase dysphagia. After she was medically cleared she was transferred for further rehab. She tolerated therapy fairly well and participated fully. Her right upper extremity continued to have slight tone and she was instructed several times on the necessity for continued stretching in order to reduce the tone. At this level she is better served with stretching as the main treatment but if she continues to worsen it would be reasonable to look at oral medications. Secondary stroke prevention was discussed with her several times during her stay. Hypertension was controlled with medications. At first she will need home health therapy however her sister medically clear that she would be able to get her to outpatient therapy and we changed her order accordingly. Disposition: DC-01 TO HOME OR SELFCARE Time spent for discharge: >30 mins Core Measure Documentation - Palliative Care Palliative Care/ Comfort Measures: Not Applicable - Core Measures Any of the following diagnoses?: stroke - Stroke Discharge Requirements Statin for LDL = or >70 mg/dl on DC: Yes Anticoag for atrial fib/atrial flutter: Not Applicable Antithrombotic for ischemic stroke: Yes Exam - Physical Exam Narrative exam: MUSCULOSKELETAL SPECIALTY EXAM CONSTITUTIONAL: Well developed, well nourished, appropriately groomed. RIGHT hand dominant. RESPIRATORY: Clear to auscultation bilaterally, no increased work of breathing CARDIOVASCULAR: Regular Rate/ Rhythm, no swelling, edema or tenderness in BUE or BLE. All extremities warm. GI: + bowel sounds, soft, NTTP, nondistended. INTEGUMENTARY: Normal, no lesion, rash, masses or bruising noted in extremities. MUSCULOSKELETAL: BUE and BLE normal without defect, crepitus, subluxation, effusion, arthritic changes or TTP. SA EF WE EE FF FA HF KE ADF EHL APF R 3/5 3/5 3/5 3/5 3/5 3/5 3/5 3/5 3/5 3/5 3/5 L 5/5 5/5 5/5 5/5 5/5 5/5 5/5 5/5 5/5 5/5 5/5 ROM decreased on RUE and RLE Tone increased on right NEURO: CN II-XII grossly intact Sensation intact in all extremities with extinction on LE. Coordination deficit on right. No tremor noted in 4 extremities. Naming and repetition intact. Follows 2 step commands. Aphasia not appreciated Dysarthria noted Dysphagia oral phase Neglect not appreciated POSTURE and GAIT: Sitting posture ok. Balance appears reasonable. Gait slowed. PSYCH: Alert, orientated x3, affect appears euthymic. Insight appears intact. - Constitutional Vitals: Temp Pulse Resp BP Pulse Ox 36.3 C L 85 18 141/73 97 10/06/18 08:09 10/06/18 08:09 10/06/18 08:09 10/06/18 08:09 10/06/18 08:09 - Allied Health Allied health notes reviewed: nursing, PT, ST, OT Plan Activity: advance as tolerated, no driving until cleared by PCP, fall precautions Weight Bearing Status: Full Weight Bearing Diet: regular ([facility] Soft / Thin liquids) Special Instructions: follow up in rehab Durable Medical Equipment Needed Upon Discharge: Cane-Quad, other (3 in 1, anterior AFO) Follow up with: CARLOS THRASHER MD [Primary Care Provider] - 7 Days Prescriptions: traZODone [Desyrel] 100 mg PO QHS PRN #30 tablet PRN Reason: Insomnia AtorvaSTATin [Lipitor] 40 mg PO QHS #30 tablet Aspirin EC [Aspirin Enteric Coated TAB] 325 mg PO QDAY #30 tablet Pantoprazole [Protonix TAB] 40 mg PO QDAY #30 tablet
== END 2018-10-06 12:30 | disposition home or self-care (01) | DRG 56 ==
LOC: 3A 17:04 → UNDOADMIN 17:04 → 3B 09-20 12:43
PROVIDERS: ADMIT Physical Medicine & Rehabilitation; ATTEND Physical Medicine & Rehabilitation
PROC: BD11YZZ Fluoroscopy of Esophagus using Other Contrast (ICD-10-PCS; principal; 2018-09-22)
DX: I69.351 Hemiplegia and hemiparesis following cerebral infarction affecting right dominant side (principal); I63.9 Cerebral infarction, unspecified; R53.81 Other malaise; G47.00 Insomnia, unspecified; I10 Essential (primary) hypertension; Z88.0 Allergy status to penicillin; R13.11 Dysphagia, oral phase
CPT/HCPCS: 36415; 74230; 80048; 80053; 82962; 85025; 85027; G0378; G0515; A9270-GY; J1650